=== PATIENT | male | born 1975 | race Caucasian/White ===

== ENCOUNTER 2022-02-14 16:46 | Emergency (ER) | payer OTHER ==
[2022-02-14] MEDS ORDERED: TRANDATE 20 MG/4 ML SYRINGE IV ONE (16:51)
[2022-02-14] MEDS ORDERED: Nitrostat 0.4 MG (ED) SL ONE (16:57)
[2022-02-14] MEDS ORDERED: BABY ASPIRIN 81 MG CHEW PO ONE (16:57)
[2022-02-14] MEDS ORDERED: Sodium Chloride 0.9% 1000 ML 1,000 ML IV SCH (17:00)
[2022-02-14 17:09] LABS: Absolute Neutrophil Ct (ANC) 8.42 x10^3/uL (1.4-6.9); Basophil (Absolute #) 0.03 x10^3/uL (0-0.4); Eosinophil % 0.7 % (0.00-5.0); Eosinophil (Absolute #) 0.08 x10^3/uL (0-0.5); Hematocrit 44.5 % (42-50); Hemoglobin 15.2 g/dL (12.5-18.0); Lymphocyte (Absolute #) 1.83 x10^3/uL (1.0-4.6); Lymphocytes % 16.5 % (24.0-44.0); Mean Cell Volume 91.4 fL (78-100); Mean Corpuscular Hemoglobin 31.2 pg (26-32); Mean Corpuscular Hgb Concent. 34.2 g/dL (32-36); Mean Platelet Volume 9.5 fL (7.5-11.0); Monocyte (Absolute #) 0.71 x10^3/uL (0.0-1.3); Monocytes % 6.4 % (0.0-12.0); Neutrophil % 75.7 % (36.0-66.0); Platelet Count 261 x10^3/uL (150-450); Red Blood Count 4.87 x10^6/uL (4.1-5.6); Red Cell Distribution Width 12.8 % (11.5-14.0); White Blood Count 11.1 x10^3/uL (4.0-10.5)
[2022-02-14] MEDS ORDERED: Sodium Chloride 0.9% 1000 ML 1,000 ML ONE (17:15)
[2022-02-14 17:23] VITALS: O2SAT 99
[2022-02-14 17:31] LABS: ALBUMIN 4.8 g/dL (3.5-5.0); ALKALINE PHOSPHATASE 87 U/L (38-126); ANION GAP 13.7 MEQ/L (5-15); BLOOD UREA NITROGEN 18 mg/dL (9-20); CHLORIDE 99 mmol/L (98-107); Calcium 10.8 mg/dL (8.4-10.2); Carbon Dioxide 26 mmol/L (22-30); Creatinine 1 1.07 mg/dL (0.66-1.25); EST GLOMERULAR FILTRATION RATE > 60.0 ML/MIN; Glucose 117 mg/dL (74-106); NT PRO BNP 53.6 pg/mL (0-450); Potassium 3.7 mmol/L (3.5-5.1); SGOT/AST 41 U/L (17-59); SGPT/ALT 42 U/L (0-50); SODIUM 135 mmol/L (137-145)
[2022-02-14] MEDS ORDERED: NORVASC 5 MG ONE (17:38)
[2022-02-14] MEDS ORDERED: NORVASC 5 MG PO ONE (17:38)
--- NOTE | 2022-02-14 17:43 | ERPHSYRPT ---
- History of Present Illness Time Seen by Provider: 02/14/22 17:39 Historian: patient, family Exam Limitations: no limitations Patient Subjective Stated Complaint: C/O chest pain that started this morning. Pain is not currently radiating but did radiate into left arm/shoulder and neck earlier today. No SOB. Triage Nursing Assessment: Patient ambulated back to ED without SOB noted. Skin note pale; it is warm, dry, normal skin tone. Patient is anxious. No edema noted. Physician History: Patient is 47-year-old male history of hypertension came to the emergency room with complaining of chest pain radiating to the back and left arm started approximately few hours ago. Patient has been recently diagnosed with hyperte nsion for which patient is taking lisinopril 20 mg twice a day and recently hydrochlorothiazide was added 25 mg once a day. 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 His blood pressure was doing okay just 1 week ago but in last 2 3 days he started raising in the range of 1 7180 systolic and 9200 diastolic today his blood pressure was very high and he started having a chest heaviness and chest pain so he came to the emergency room. He was still having some heaviness in the emergency room but he was denying any other symptoms. Timing/Duration: today Activities at Onset: none Quality: fullness Location: substernal Chest Pain Radiation: neck, arm, back Severity of Pain-Max: mild Severity of Pain-Current: mild Modifying Factors: Improves With: nothing Associated Symptoms: denies symptoms Prior Chest Pain/Cardiac Workup: no prior chest pain Nitro Today/Relief: no nitro taken today Aspirin Treatment Today: no aspirin today Allergies/Adverse Reactions: Penicillins Allergy (Verified 02/14/22 16:47) Home Medications: Lisinopril 20 mg [Zestril 20 MG] 1 tab PO DAILY 02/14/22 [History] Rosuvastatin Calcium [Crestor] 1 tab PO DAILY 02/14/22 [History] hydroCHLOROthiazide [Hydrochlorothiazide] 1 tab PO DAILY 02/14/22 [History] Hx Tetanus, Diphtheria Vaccination/Date Given: Yes Hx Influenza Vaccination/Date Given: No Hx Pneumococcal Vaccination/Date Given: No Immunizations Up to Date: Yes Travel Risk - International Travel Have you traveled outside of the country in past 3 weeks: No - Coronavirus Screening Are you exhibiting any of the following symptoms?: No Close contact with a COVID-19 positive Pt in past 14-21 Days: No - Vaccine Status Have you recieved a Covid-19 vaccination: No - Review of Systems Constitutional: No Fever, No Chills Eyes: No Symptoms Ears, Nose, & Throat: No Symptoms Respiratory: No Cough, No Dyspnea Cardiac: Chest Pain, No Edema, No Syncope Abdominal/Gastrointestinal: No Abdominal Pain, No Nausea, No Vomiting, No Diarrhea Genitourinary Symptoms: No Dysuria Musculoskeletal: No Back Pain, No Neck Pain Skin: No Rash Neurological: No Dizziness, No Focal Weakness, No Sensory Changes Psychological: No Symptoms Endocrine: No Symptoms All Other Systems: Reviewed and Negative - Past Medical History Pertinent Past Medical History: Yes Cardiac History: High Cholesterol, Hypertension Respiratory History: Other GI Medical History: Diverticulitis Psycho-Social History: Anxiety, Depression - Past Surgical History Past Surgical History: No - Social History Smoking Status: Current every day smoker How long have you smoked: 20 years Exposure to second hand smoke: No Patient Lives Alone: No - Nursing Vital Signs Nursing Vital Signs: Initial Vital Signs Temperature 98.9 F 02/14/22 16:49 Pulse Rate 108 H 02/14/22 16:49 Respiratory Rate 18 02/14/22 16:49 Blood Pressure 176/94 02/14/22 16:49 O2 Sat by Pulse Oximetry 99 02/14/22 16:49 Pain Scale Pain Intensity 3 - Physical Exam General Appearance: no apparent distress, alert Eye Exam: PERRL/EOMI, eyes nml inspection Ears, Nose, Throat Exam: normal ENT inspection, moist mucous membranes Neck Exam: normal inspection, non-tender, supple, full range of motion Respiratory Exam: normal breath sounds, lungs clear, No respiratory distress Cardiovascular Exam: regular rate/rhythm, normal heart sounds Gastrointestinal/Abdomen Exam: soft, No tenderness, No mass Back Exam: normal inspection, No CVA tenderness, No vertebral tenderness Extremity Exam: normal inspection, normal range of motion Neurologic Exam: alert, oriented x 3, cooperative, normal mood/affect, sensation nml, No motor deficits Skin Exam: normal color, warm, dry SpO2: 99 - Course Nursing assessment & vital signs reviewed: Yes EKG Interpreted by Me: Sinus Rhythm - Radiology Exams Chest X-ray Interpretation: Reviewed by me, Negative Ordered Tests: Active Orders 24 hr Category Date Time Status Repairer Handtools STAT Care 02/14/22 16:52 Active EKG-ER Only STAT Care 02/14/22 16:51 Active IV Insertion STAT Care 02/14/22 16:51 Active Oxygen-ED Only Nasal Cannula 2 lpm Care 02/14/22 16:51 Active CHEST 1 VIEW (PORTABLE) Stat Exams 02/14/22 16:51 Ordered CBC W DIFF Stat Lab 02/14/22 17:06 Completed CMP Stat Lab 02/14/22 17:06 Completed NT PRO BNP Stat Lab 02/14/22 17:06 Completed TROPONIN Q3H Lab 02/14/22 17:06 Completed TROPONIN Q3H Lab 02/14/22 20:00 Ordered TROPONIN Q3H Lab 02/14/22 23:00 Ordered TROPONIN Q3H Lab 02/15/22 02:00 Ordered TROPONIN Q3H Lab 02/15/22 05:00 Ordered Medication Summary Generic Name Dose Route Start Last Admin Trade Name Freq PRN Reason Stop Dose Admin Sodium Chloride 1,000 mls @ 100 mls/hr 02/14/22 17:00 02/14/22 17:16 Sodium Chloride 0.9% 1000 Ml IV 03/16/22 16:59 100 mls/hr .Q10H HIRAM Administration Discontinued Medications Generic Name Dose Route Start Last Admin Trade Name Freq PRN Reason Stop Dose Admin Amlodipine Besylate 5 mg 02/14/22 17:38 02/14/22 17:40 Amlodipine Besylate 5 Mg Tablet PO 02/14/22 17:39 5 mg STAT ONE Administration Amlodipine Besylate Confirm 02/14/22 17:38 Amlodipine Besylate 5 Mg Tablet Administered 02/14/22 17:39 Dose 5 mg .ROUTE .STK-MED ONE Aspirin 324 mg 02/14/22 16:57 02/14/22 17:16 Aspirin 81 Mg Tab.Chew PO 02/14/22 16:58 324 mg STAT ONE Administration Labetalol HCl 20 mg 02/14/22 16:51 Labetalol Hcl 20 Mg/4 Ml Disp.Syringe IV 02/14/22 16:52 STAT ONE Nitroglycerin 0.4 mg 02/14/22 16:57 02/14/22 17:16 Nitroglycerin 0.4 Mg (Ed) 0.4 Mg Tab.Subl SL 02/14/22 16:58 0.4 mg STAT ONE Administration Lab/Rad Data: Laboratory Result Diagrams 02/14/22 17:06 02/14/22 17:06 Laboratory Results 02/14/22 02/14/22 02/14/22 Range/Units 17:06 17:06 17:06 WBC 11.1 H (4.0-10.5) x10^3/uL RBC 4.87 (4.1-5.6) x10^6/uL Hgb 15.2 (12.5-18.0) g/dL Hct 44.5 (42-50) % MCV 91.4 (78-100) fL MCH 31.2 (26-32) pg MCHC 34.2 (32-36) g/dL RDW 12.8 (11.5-14.0) % Plt Count 261 (150-450) x10^3/uL MPV 9.5 (7.5-11.0) fL Gran % 75.7 H (36.0-66.0) % Immature Gran % (Auto) 0.4 (0.00-0.4) % Nucleat RBC Rel Count 0.0 (0.00-0.1) % Eos # (Auto) 0.08 (0-0.5) x10^3/uL Immature Gran # (Auto) 0.05 H (0.00-0.03) x10^3u/L Absolute Lymphs (auto) 1.83 (1.0-4.6) x10^3/uL Absolute Monos (auto) 0.71 (0.0-1.3) x10^3/uL Absolute Nucleated RBC 0.00 (0.00-0.01) x10^3u/L Lymphocytes % 16.5 L (24.0-44.0) % Monocytes % 6.4 (0.0-12.0) % Eosinophils % 0.7 (0.00-5.0) % Basophils % 0.3 (0.0-0.4) % Absolute Granulocytes 8.42 H (1.4-6.9) x10^3/uL Basophils # 0.03 (0-0.4) x10^3/uL Sodium 135 L (137-145) mmol/L Potassium 3.7 (3.5-5.1) mmol/L Chloride 99 (98-107) mmol/L Carbon Dioxide 26 (22-30) mmol/L Anion Gap 13.7 (5-15) MEQ/L BUN 18 (9-20) mg/dL Creatinine 1.07 (0.66-1.25) mg/dL Estimated GFR > 60.0 ML/MIN Glucose 117 H (74-106) mg/dL Calcium 10.8 H (8.4-10.2) mg/dL Total Bilirubin 0.60 (0.2-1.3) mg/dL AST 41 (17-59) U/L ALT 42 (0-50) U/L Alkaline Phosphatase 87 (38-126) U/L Troponin I < 0.012 (0.000-0.034) ng/mL NT-Pro-B Natriuret Pep 53.6 (0-450) pg/mL Serum Total Protein 8.0 (6.3-8.2) g/dL Albumin 4.8 (3.5-5.0) g/dL - Progress Progress: improved Air Movement: good Blood Culture(s) Obtained: No Antibiotics given: No Counseled pt/family regarding: lab results, diagnosis, need for follow-up, rad results, smoking cessation - Departure Departure Disposition: Home Clinical Impression: Chest pain in adult, Hypertensive urgency Condition: Stable Critical Care Time: Yes Critical Care Time(excluding separately billable procedures): Critical 30-74 mins Instructions: Chest Pain (DC) Additional Instructions: Please take lisinopril 20 mg twice a day and amlodipine 5 mg at night. 1 dose of amlodipine 5 mg is already given to you in ER today so you can start that tomorrow. You can stop your hydrochlorothiazide for now. Take off on Wednesday and follow-up with your primary care physician on Wednesday for further stratification and management of your blood pressure. If your symptoms recur or started having chest pain again come back to the emergency room. Discharge/Care Plan HALLEY FRANKLIN was seen on 02/14/22 in the Emergency Room. The patient was counseled regarding Diagnosis,Lab results, Imaging studies, need for follow up and when to return to the Emergency Room. Prescriptions given: Discharge Note I have spoken with the patient and/or caregivers. I have explained the patient's condition, diagnosis and treatment plan based on the information available to me at this time. I have answered the patient's and/or caregiver's questions and addressed any concerns. The patient and/or caregivers have as good understanding of the patient's diagnosis, condition and treatment plan as can be expected at this point. The vital signs have been stable. The patient's condition is stable and appropriate for discharge from the emergency department. The patient will pursue further outpatient evaluation with the primary care physician or other designated or consulting physician as outlined in the discharge instructions. The patient and/or caregivers are agreeable to this plan of care and follow-up instructions have been explained in detail. The patient and/or caregivers have received these instruction. The patient/and or caregivers are aware that any significant change in condition or worsening of symptoms should prompt an immediate return to this or the closest emergency department or call 911. HALLEY FRANKLIN was seen on 02/14/22 n the Emergency Room. At that time you were treated for an emergent condition, during your visit Laboratory, Radiology and/or other procedures may have been ordered. It is very important that you follow-up with your Primary Care Physician within the next 24-48 hours to review your Emergency Room visit and the final results of testing that was ordered. Some test results such as Urine Cultures, Blood Cultures, and other cultures if ordered will not be finalized for 24-48 hours. If you do not have a Primary Care Provider please call the medical records department at [phone] ext [phone] to obtain a copy of your results or you may sign into our patient portal to obtain these results by visiting us @ [email or web address] and completing the following steps: 1. Click on the Patient Portal link 2. Click the Patient Self Enrollment Link to complete the enrollment form and entering your 3. Once the enrollment form is completed you will receive an email with a temporary ID and password at the email address you provided. 4. Next choose a user name and password. Your user name must be at least 4 characters long and your password must be at least 4 characters long. 5. Choose a security question from the list and provide your answer to the question. If you already have signed into the Health Portal you may access your Health Care Information 15/03 by the following steps: 1. Login to our website @ [email or web address] 2. Enter your original user name and password. FAQS The [facility] Health Portal is an online tool that contains your Lab Results, Radiology Reports, Visit History, Discharge Instructions and Health Summary Lab and Radiology Results will not be available for 72 hours on the portal. The Portal is a secure site, passwords are encryted and URLs are re-written so they cannot be copied and pasted. You and authorized family members are the only ones who can access your Portal. Also there is a timeout feature that protects your information if you leave the Portal page open. If you have technical difficulty please use the Contact Us link on the page this will allow you to submit any questions you have regarding the Portal or you may contact the Medical Record Department at [phone] ext [phone]. Forms: Work/School Release Form Prescriptions: Amlodipine Besylate 5 mg [Norvasc 5 mg] 5 mg PO DAILY 30 Days #30 tablet
[2022-02-14 17:55] VITALS: BP 142/83; PULSE 93
--- NOTE | 2022-02-14 19:03 | XRAY ---
Indication: Chest pain. Hypertension. Comparison: None Portable chest inflated and clear. Heart not enlarged with incidental small left suprahilar calcified node. Bony thorax intact. Impression: Nonacute chest.
== END 2022-02-14 18:20 | disposition home or self-care (01) ==
LOC: ED 16:46
DX: I16.0 Hypertensive urgency (principal); I10 Essential (primary) hypertension; R07.9 Chest pain, unspecified; E78.5 Hyperlipidemia, unspecified; Z72.0 Tobacco use; Z79.899 Other long term (current) drug therapy; Z28.310 Unvaccinated for COVID-19
CPT/HCPCS: 36000; 36415; 71045; 80053; 83880; 84484; 85025; 93005; 93041; 99284; 99291; A9270-GY

== ENCOUNTER 2022-07-21 06:37 | Emergency (ER) | payer OTHER ==
[2022-07-21 07:27] LABS: Absolute Neutrophil Ct (ANC) 5.89 x10^3/uL (1.4-6.9); Basophil (Absolute #) 0.05 x10^3/uL (0-0.4); Eosinophil % 2.4 % (0.00-5.0); Hematocrit 46.2 % (42-50); Hemoglobin 15.3 g/dL (12.5-18.0); Lymphocyte (Absolute #) 1.45 x10^3/uL (1.0-4.6); Lymphocytes % 17.1 % (24.0-44.0); Mean Cell Volume 91.3 fL (78-100); Mean Corpuscular Hemoglobin 30.2 pg (26-32); Mean Corpuscular Hgb Concent. 33.1 g/dL (32-36); Mean Platelet Volume 9.4 fL (7.5-11.0); Monocyte (Absolute #) 0.78 x10^3/uL (0.0-1.3); Monocytes % 9.2 % (0.0-12.0); Neutrophil % 69.6 % (36.0-66.0); Platelet Count 235 x10^3/uL (150-450); Red Blood Count 5.06 x10^6/uL (4.1-5.6); Red Cell Distribution Width 13.2 % (11.5-14.0); White Blood Count 8.5 x10^3/uL (4.0-10.5)
--- NOTE | 2022-07-21 07:29 | ERPHSYRPT ---
- History of Present Illness Time Seen by Provider: 07/21/22 06:50 Source: patient Exam Limitations: no limitations Patient Subjective Stated Complaint: pt states his blood pressure has been high prior to coming into the er. states he has beeh having some numbness in his lt [place], upper arm, and his lt face since approx 1600 yesterday. Triage Nursing Assessment: pt alert and oriented, answers questions approp. pt ambulatory with steady gait noted. respirations nonlabored. skin warm and dry. pupils equal and reactive. no facial droop noted. bilat upper and lower ext noted. pt reporting tingling in lt shoulder, face, and lt upper arm. when checked, pt states he feels no difference in sensation between lt and rt side but is still having some "tingling" in his lt side. Physician History: Patient is a 47-year-old white male who presents with a complaint of paresthesias involving the left side of the face the neck and left shoulder and left arm. Paresthesias started at 4 PM yesterday he notes they are much worse this morning. He denies a headache or any pain. He denies fever chills or sweats. He does have a history of hypertension that is been treated for 3-1/2 years with multiple drugs. Timing/Duration: yesterday Severity: moderate Character of Deficits: altered sensation, Left Facial, LUE Deficits: no difficulties Baseline/Normal Cognition: alert oriented x 3 Current Cognition: alert oriented x 3 Baseline Gait: walks w/o assistance Associated Symptoms: paresthesia Allergies/Adverse Reactions: Penicillins Allergy (Verified 07/21/22 07:00) Home Medications: Lisinopril 20 mg [Zestril 20 MG] 1 tab PO DAILY 02/14/22 [History] Rosuvastatin Calcium [Crestor] 1 tab PO DAILY 02/14/22 [History] hydroCHLOROthiazide [Hydrochlorothiazide] 1 tab PO DAILY 02/14/22 [History] Hx Tetanus, Diphtheria Vaccination/Date Given: Yes Hx Influenza Vaccination/Date Given: No Hx Pneumococcal Vaccination/Date Given: No Immunizations Up to Date: Yes Travel Risk - International Travel Have you traveled outside of the country in past 3 weeks: No - Coronavirus Screening Are you exhibiting any of the following symptoms?: No Close contact with a COVID-19 positive Pt in past 14-21 Days: No - Vaccine Status Have you recieved a Covid-19 vaccination: No - Review of Systems Constitutional: No Fever, No Chills Eyes: No Symptoms Ears, Nose, & Throat: No Symptoms Respiratory: No Cough, No Dyspnea Cardiac: No Chest Pain, No Edema, No Syncope Abdominal/Gastrointestinal: No Abdominal Pain, No Nausea, No Vomiting, No Di arrhea Genitourinary Symptoms: No Dysuria Musculoskeletal: No Back Pain, No Neck Pain Skin: No Rash Neurological: Parasthesia, No Dizziness, No Focal Weakness, No Sensory Changes Psychological: No Symptoms Endocrine: No Symptoms All Other Systems: Reviewed and Negative - Past Medical History Pertinent Past Medical History: Yes Cardiac History: High Cholesterol, Hypertension Respiratory History: Other GI Medical History: Diverticulitis Psycho-Social History: Anxiety, Depression - Past Surgical History Past Surgical History: No - Social History Smoking Status: Current every day smoker How long have you smoked: 30 yrs Exposure to second hand smoke: Yes Drug Use: none Patient Lives Alone: No - Nursing Vital Signs Nursing Vital Signs: Initial Vital Signs Temperature 98.1 F 07/21/22 06:38 Pulse Rate 83 07/21/22 06:38 Respiratory Rate 16 07/21/22 06:38 Blood Pressure 134/86 07/21/22 06:38 O2 Sat by Pulse Oximetry 99 07/21/22 06:38 Pain Scale Pain Intensity 0 - Ousmane Coma Scale Best Eye Response (Ousmane): (4) open spontaneously Best Verbal Response (Ousmane): (5) oriented Best Motor Response ([place]): (6) obeys commands Ousmane Total: 15 - Physical Exam General Appearance: no apparent distress, alert Eye Exam: bilateral eye: PERRL, EOMI Ears, Nose, Throat Exam: normal ENT inspection, moist mucous membranes Neck Exam: normal inspection, non-tender, supple Respiratory: normal breath sounds, lungs clear, airway intact, No respiratory distress Cardiovascular: regular rate/rhythm, No edema Gastrointestinal: soft, No tenderness, No distention Back Exam: normal inspection Extremity Exam: normal inspection, No pedal edema 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, 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 Exam: tongue midline Coordination/Gait: normal finger to nose, normal gait Skin Exam: normal color, warm, dry, No rash SpO2: 99 - Course Nursing assessment & vital signs reviewed: Yes EKG Interpreted by Me: RATE (75), Sinus Rhythm, NORMAL AXIS, NORMAL INTERVALS, NORMAL QRS, NORMAL ST-T - CT Exams Head CT Interpretation: Other (Normal CTA of the head) Soft Tissue Neck CT Interpretation: Other (Normal CTA of the neck) Ordered Tests: Active Orders 24 hr Category Date Time Status Take Out Waiter STAT Care 07/21/22 06:52 Active EKG-ER Only STAT Care 07/21/22 06:51 Active NPO (ED) STAT Care 07/21/22 06:51 Active CHEST 1 VIEW (PORTABLE) Stat Exams 07/21/22 06:[address] ANGIOGRAPHY NECK [CT] Stat Exams 07/21/22 06:52 Completed CTA HEAD W AND/OR WO CONTRAST [CT] Stat Exams 07/21/22 08:49 Completed CBC W DIFF Stat Lab 07/21/22 07:20 Completed CMP Stat Lab 07/21/22 07:20 Completed PT INR [PROTIME WITH INR] Stat Lab 07/21/22 07:20 Completed TROPONIN Q4H Lab 07/21/22 07:20 Completed TROPONIN Q4H Lab 07/21/22 11:00 Ordered TROPONIN Q4H Lab 07/21/22 15:00 Ordered UA W/RFX CULTURE Stat Lab 07/21/22 08:51 Completed Urine Triage Profile Stat Lab 07/21/22 08:51 Completed Transfer Order Routine Transfer 07/21/22 Ordered Lab/Rad Data: Laboratory Result Diagrams 07/21/22 07:20 07/21/22 07:20 Laboratory Results 07/21/22 07/21/22 07/21/22 Range/Units 08:51 08:51 07:20 WBC (4.0-10.5) x10^3/uL RBC (4.1-5.6) x10^6/uL Hgb (12.5-18.0) g/dL Hct (42-50) % MCV (78-100) fL MCH (26-32) pg MCHC (32-36) g/dL RDW (11.5-14.0) % Plt Count (150-450) x10^3/uL MPV (7.5-11.0) fL Gran % (36.0-66.0) % Immature Gran % (Auto) (0.00-0.4) % Nucleat RBC Rel Count (0.00-0.1) % Eos # (Auto) (0-0.5) x10^3/uL Immature Gran # (Auto) (0.00-0.03) x10^3u/L Absolute Lymphs (auto) (1.0-4.6) x10^3/uL Absolute Monos (auto) (0.0-1.3) x10^3/uL Absolute Nucleated RBC (0.00-0.01) x10^3u/L Lymphocytes % (24.0-44.0) % Monocytes % (0.0-12.0) % Eosinophils % (0.00-5.0) % Basophils % (0.0-0.4) % Absolute Granulocytes (1.4-6.9) x10^3/uL Basophils # (0-0.4) x10^3/uL PT (9.4-12.5) SECONDS INR (0.8-3.0) Sodium (137-145) mmol/L Potassium (3.5-5.1) mmol/L Chloride (98-107) mmol/L Carbon Dioxide (22-30) mmol/L Anion Gap (5-15) MEQ/L BUN (9-20) mg/dL Creatinine (0.66-1.25) mg/dL Estimated GFR ML/MIN Glucose (74-106) mg/dL Calcium (8.4-10.2) mg/dL Total Bilirubin (0.2-1.3) mg/dL AST (17-59) U/L ALT (0-50) U/L Alkaline Phosphatase (38-126) U/L Troponin I < 0.012 (0.000-0.034) ng/mL Serum Total Protein (6.3-8.2) g/dL Albumin (3.5-5.0) g/dL Urinalys Dipstick Clnc MAIN LAB Urine Color YELLOW (YELLOW) Urine Appearance CLEAR (CLEAR) Urine pH 6.0 (5-6) Ur Specific [place] 1.020 (1.005-1.025) POC Urine Protein Conf NEGATIVE (Negative) Urine Ketones NEGATIVE (NEGATIVE) Urine Nitrite NEGATIVE (NEGATIVE) Urine Bilirubin NEGATIVE (NEGATIVE) Urine Urobilinogen 0.2 (0-1) mg/dL Urine Leukocytes NEGATIVE (NEGATIVE) Urine WBC (Auto) NONE (0-5) /HPF Urine RBC (Auto) NONE (0-2) /HPF U Epithel Cells (Auto) NONE (FEW) /HPF Urine Bacteria (Auto) NONE (NEGATIVE) /HPF Urine RBC NEGATIVE (0-5) Wilber/ul Ur Culture Indicated? NO Urine Glucose NEGATIVE (NEGATIVE) mg/dL Urine Opiates Level NEGATIVE (NEGATIVE) Ur Methadone NEGATIVE (NEGATIVE) Urine Barbiturates NEGATIVE (NEGATIVE) Ur Phencyclidine (PCP) NEGATIVE (NEGATIVE) Urine Amphetamine NEGATIVE (NEGATIVE) U Benzodiazepine Level NEGATIVE (NEGATIVE) Urine Cocaine NEGATIVE (NEGATIVE) Urine Marijuana (THC) NEGATIVE (NEGATIVE) 07/21/22 07/21/22 07/21/22 Range/Units 07:20 07:20 07:20 WBC 8.5 (4.0-10.5) x10^3/uL RBC 5.06 (4.1-5.6) x10^6/uL Hgb 15.3 (12.5-18.0) g/dL Hct 46.2 (42-50) % MCV 91.3 (78-100) fL MCH 30.2 (26-32) pg MCHC 33.1 (32-36) g/dL RDW 13.2 (11.5-14.0) % Plt Count 235 (150-450) x10^3/uL MPV 9.4 (7.5-11.0) fL Gran % 69.6 H (36.0-66.0) % Immature Gran % (Auto) 1.1 H (0.00-0.4) % Nucleat RBC Rel Count 0.0 (0.00-0.1) % Eos # (Auto) 0.20 (0-0.5) x10^3/uL Immature Gran # (Auto) 0.09 H (0.00-0.03) x10^3u/L Absolute Lymphs (auto) 1.45 (1.0-4.6) x10^3/uL Absolute Monos (auto) 0.78 (0.0-1.3) x10^3/uL Absolute Nucleated RBC 0.00 (0.00-0.01) x10^3u/L Lymphocytes % 17.1 L (24.0-44.0) % Monocytes % 9.2 (0.0-12.0) % Eosinophils % 2.4 (0.00-5.0) % Basophils % 0.6 (0.0-0.4) % Absolute Granulocytes 5.89 (1.4-6.9) x10^3/uL Basophils # 0.05 (0-0.4) x10^3/uL PT 10.0 (9.4-12.5) SECONDS INR 0.94 (0.8-3.0) Sodium 133 L (137-145) mmol/L Potassium 5.2 H (3.5-5.1) mmol/L Chloride 102 (98-107) mmol/L Carbon Dioxide 23 (22-30) mmol/L Anion Gap 12.8 (5-15) MEQ/L BUN 24 H (9-20) mg/dL Creatinine 1.03 (0.66-1.25) mg/dL Estimated GFR > 60.0 ML/MIN Glucose 119 H (74-106) mg/dL Calcium 9.5 (8.4-10.2) mg/dL Total Bilirubin 0.70 (0.2-1.3) mg/dL AST 40 (17-59) U/L ALT 41 (0-50) U/L Alkaline Phosphatase 85 (38-126) U/L Troponin I (0.000-0.034) ng/mL Serum Total Protein 7.9 (6.3-8.2) g/dL Albumin 4.9 (3.5-5.0) g/dL Urinalys Dipstick Clnc Urine Color (YELLOW) Urine Appearance (CLEAR) Urine pH (5-6) Ur Specific [place] (1.005-1.025) POC Urine Protein Conf (Negative) Urine Ketones (NEGATIVE) Urine Nitrite (NEGATIVE) Urine Bilirubin (NEGATIVE) Urine Urobilinogen (0-1) mg/dL Urine Leukocytes (NEGATIVE) Urine WBC (Auto) (0-5) /HPF Urine RBC (Auto) (0-2) /HPF U Epithel Cells (Auto) (FEW) /HPF Urine Bacteria (Auto) (NEGATIVE) /HPF Urine RBC (0-5) Wilber/ul Ur Culture Indicated? Urine Glucose (NEGATIVE) mg/dL Urine Opiates Level (NEGATIVE) Ur Methadone (NEGATIVE) Urine Barbiturates (NEGATIVE) Ur Phencyclidine (PCP) (NEGATIVE) Urine Amphetamine (NEGATIVE) U Benzodiazepine Level (NEGATIVE) Urine Cocaine (NEGATIVE) Urine Marijuana (THC) (NEGATIVE) - Progress Progress: improved - Departure Departure Disposition: Home Clinical Impression: Paresthesia Condition: Stable Critical Care Time: No Referrals: ALFIE ROWLEY NP [Primary Care Provider] - Follow up/PCP as directed Instructions: Paresthesia (DC) Prescriptions: Diclofenac Sodium 50 mg [Voltaren 50 mg] 50 mg PO TID 5 Days #15 tablet
[2022-07-21 07:40] LABS: INR 0.94 (0.8-3.0)
[2022-07-21 07:46] LABS: ALBUMIN 4.9 g/dL (3.5-5.0); ALKALINE PHOSPHATASE 85 U/L (38-126); ANION GAP 12.8 MEQ/L (5-15); BLOOD UREA NITROGEN 24 mg/dL (9-20); CHLORIDE 102 mmol/L (98-107); Calcium 9.5 mg/dL (8.4-10.2); Carbon Dioxide 23 mmol/L (22-30); Creatinine 1 1.03 mg/dL (0.66-1.25); EST GLOMERULAR FILTRATION RATE > 60.0 ML/MIN; Glucose 119 mg/dL (74-106); Potassium 5.2 mmol/L (3.5-5.1); SGOT/AST 40 U/L (17-59); SGPT/ALT 41 U/L (0-50); SODIUM 133 mmol/L (137-145); Total Protein 7.9 g/dL (6.3-8.2)
--- NOTE | 2022-07-21 09:00 | XRAY ---
Indication: Hypertension. Comparison: February 14, 2022 Portable chest again demonstrates normal heart, lungs, and bony thorax with incidental left suprahilar calcified node.
[2022-07-21 09:20] LABS: Appearance CLEAR (CLEAR); Glucose NEGATIVE (NEGATIVE)
[2022-07-21 09:21] LABS: Bilirubin NEGATIVE (NEGATIVE); Ketones NEGATIVE (NEGATIVE); RBC NEGATIVE Ery/ul (0-5)
--- NOTE | 2022-07-21 09:27 | XRAY ---
Indication: Left shoulder, upper arm, and face numbness 16 hours. Hypertension. Conventional contrast enhanced CTA neck performed using 80 cc Isovue 370 contrast. 2-D sagittal and coronal reformatted images obtained. Additional 3-D reformatted images obtained using a separate workstation. Comparison: None Aortic arch is normal in course and caliber. Normal widely patent branching right brachiocephalic, left common carotid, and left subclavian arteries. Left and right common carotid, carotid bulb, internal carotid, and external carotid arteries are normal in CTA appearance. Vertebral arteries are also normal in CTA appearance with the left slightly larger in caliber. Parotid and submandibular glands are bilaterally symmetric. Small scattered centimeter/subcentimeter cervical and submandibular lymph nodes bilaterally, none pathologically enlarged. Thyroid gland enhances homogeneously. Slightly enlarged palatine tonsils and adenoids narrows the oropharynx. Visualized osseous structures intact with minimal/mild multilevel cervical degenerative changes greatest at C6-C7. Lung apices are clear. Impression: 1. Normal CTA neck with contrast exam. 2. Incidental slightly enlarged palatine tonsils/adenoids and multilevel cervical degenerative changes.
--- NOTE | 2022-07-21 09:29 | XRAY ---
Indication: Left shoulder, upper arm, and face numbness 16 hours. Hypertension. Conventional contrast enhanced CTA head performed using 80 cc Isovue 370 contrast. 2-D sagittal and coronal reformatted images obtained. Additional 3-D reformatted images obtained using a separate workstation. Comparison: None Distal internal carotid arteries are bilaterally symmetric without critical stenosis, obstruction, or AV malformation. Normal carotid terminus with normal branching A1 and M1 segments bilaterally. More distal anterior cerebral and middle cerebral arteries are normal in CTA appearance. Posterior circulation demonstrates normal CTA appearance to the basilar, left/right posterior cerebral, left/right superior cerebellar, and left/right anterior inferior cerebellar arteries. Venous drainage/sinuses are unremarkable. Noncontrast images are negative for acute intracranial hemorrhage, abnormal extra axial fluid collection, or mass effect. Fourth ventricle is midline without hydrocephalus. Ng-white matter differentiation preserved. Postcontrast images are negative for abnormal enhancing intra-or extra-axial mass. Bony calvarium intact. Visualized paranasal sinuses and mastoid air cells are clear. Impression: 1. Normal CTA head with contrast exam. 2. Normal CT head with and without contrast exam.
[2022-07-21 09:31] LABS: Dipstick done @ ? MAIN LAB; Nitrite NEGATIVE (NEGATIVE); Protein,Urine Dip NEGATIVE (Negative); Urobilinogen 0.2 mg/dL (0-1)
[2022-07-21 09:41] LABS: Amphetamine,Urine NEGATIVE (NEGATIVE); Barbiturate,Urine NEGATIVE (NEGATIVE); Benzodiazepine,Urine NEGATIVE (NEGATIVE); Cocaine,Urine NEGATIVE (NEGATIVE); Methadone,Urine NEGATIVE (NEGATIVE); Opiate,Urine NEGATIVE (NEGATIVE); PCP,Urine NEGATIVE (NEGATIVE); THC,Urine NEGATIVE (NEGATIVE)
[2022-07-21 09:42] LABS: Urine Cultured Indicated? NO
[2022-07-21 10:11] VITALS: BP 117/81; PULSE 70; O2SAT 97
== END 2022-07-21 10:19 | disposition home or self-care (01) ==
LOC: ED 06:37
DX: R20.2 Paresthesia of skin (principal); I10 Essential (primary) hypertension; E78.5 Hyperlipidemia, unspecified; Z79.899 Other long term (current) drug therapy; Z28.310 Unvaccinated for COVID-19; Z72.0 Tobacco use
CPT/HCPCS: 36415; 70496; 70498; 71045; 80053; 80307; 81015; 84484; 85025; 85610; 93005; 93041; 99284

== ENCOUNTER 2023-01-17 20:26 | Emergency (ER) | payer OTHER ==
--- NOTE | 2023-01-17 20:31 | ERPHSYRPT ---
- History of Present Illness Time Seen by Provider: 01/17/23 20:31 Historian: patient Exam Limitations: no limitations Physician History: 7-year-old male presents emergency room with chest pressure and palpitations patient reports that palpitations started 4 days ago and have increased in frequency over this time. He has had these before but has always been told that they were normal. Pressure started today and is at rest and with exertion no radiation present. He does report a few episodes of dizziness over the past 2 days with exertion as well. Started on Pepcid last week for GERD and reports good symptom improvement since starting the medication. He has a personal history of hypertension hyperlipidemia but denies diabetes. He is a current smoker and has a strong family history of cardiac disease. He denies any current fever, chills, nausea, vomiting, chest pain, abdominal pain, shortness of breath or swelling. Timing/Duration: today Activities at Onset: activity, rest Quality: pressure Location: central Chest Pain Radiation: no radiation Severity of Pain-Max: moderate Severity of Pain-Current: none Modifying Factors: Worsens With: eating, exertion Associated Symptoms: palpitations, heartburn, No nausea, No vomiting, No abdominal pain, No shortness of breath, No cough, No headache, No dizziness, No edema Prior Chest Pain/Cardiac Workup: angina Nitro Today/Relief: no nitro taken today Aspirin Treatment Today: 81 mg x 4 Allergies/Adverse Reactions: Penicillins Allergy (Verified 01/17/23 20:45) Home Medications: Lisinopril 20 mg [Zestril 20 MG] 1 tab PO BID 02/14/22 [History] Rosuvastatin Calcium [Crestor] 1 tab PO DAILY 02/14/22 [History] hydroCHLOROthiazide [Hydrochlorothiazide] 1 tab PO DAILY 02/14/22 [History] Amlodipine Besylate 5 mg [Norvasc 5 mg] 10 mg PO DAILY 01/17/23 [History] Cyclobenzaprine HCl 10 mg [Cyclobenzaprine 10 MG] 1 tab PO DAILY PRN PRN 01/17/23 [History] Famotidine 20 mg PO DAILY 01/17/23 [History] Hx Tetanus, Diphtheria Vaccination/Date Given: Yes Hx Influenza Vaccination/Date Given: No Hx Pneumococcal Vaccination/Date Given: No Travel Risk - Vaccine Status Have you recieved a Covid-19 vaccination: No - Review of Systems Constitutional: No Symptoms Eyes: No Symptoms Ears, Nose, & Throat: No Symptoms Respiratory: No Symptoms Cardiac: Chest Pain, Palpitations Abdominal/Gastrointestinal: No Symptoms Musculoskeletal: No Symptoms Skin: No Symptoms Neurological: Dizziness Psychological: No Symptoms Endocrine: No Symptoms - Past Medical History Pertinent Past Medical History: Yes Cardiac History: High Cholesterol, Hypertension Respiratory History: Other GI Medical History: Diverticulitis Psycho-Social History: Anxiety, Depression - Past Surgical History Past Surgical History: No - Social History Smoking Status: Current every day smoker How long have you smoked: 30 yrs Exposure to second hand smoke: Yes Drug Use: none Patient Lives Alone: No - Nursing Vital Signs Nursing Vital Signs: Initial Vital Signs Temperature 97.5 F 01/17/23 20:29 Pulse Rate 102 H 01/17/23 20:29 Respiratory Rate 20 01/17/23 20:29 Blood Pressure 115/87 01/17/23 20:29 O2 Sat by Pulse Oximetry 100 01/17/23 20:29 Pain Scale Pain Intensity 0 - Physical Exam General Appearance: no apparent distress Eye Exam: PERRL/EOMI Ears, Nose, Throat Exam: normal ENT inspection Neck Exam: normal inspection Respiratory Exam: normal breath sounds, lungs clear, airway intact, No respiratory distress Cardiovascular Exam: normal heart sounds, tachycardia, capillary refill <2 sec, No edema Gastrointestinal/Abdomen Exam: soft, normal bowel sounds, No tenderness Extremity Exam: normal inspection, No miller's sign, No swelling, No tenderness Neurologic Exam: alert, oriented x 3, cooperative Skin Exam: normal color, warm, dry SpO2 Interpretation: normal SpO2: 100 O2 Delivery: Room Air - Course Nursing assessment & vital signs reviewed: Yes EKG Interpreted by Me: RATE (96), Sinus Rhythm, NORMAL AXIS, NORMAL INTERVALS, NORMAL QRS, NORMAL ST-T - Radiology Exams Chest X-ray Interpretation: Interpreted by me, Negative Ordered Tests: Active Orders 24 hr Category Date Time Status Director [employer] STAT Care 01/17/23 20:46 Active EKG-ER Only STAT Care 01/17/23 20:45 Active IV Insertion STAT Care 01/17/23 20:45 Active Pulse Oximetry (ED) STAT Care 01/17/23 20:45 Active CHEST 1 VIEW (PORTABLE) Stat Exams 01/17/23 20:45 Taken CBC W DIFF Stat Lab 01/17/23 20:52 Completed CMP Stat Lab 01/17/23 20:52 Completed LIPASE Stat Lab 01/17/23 20:52 Completed MAGNESIUM Stat Lab 01/17/23 20:52 Completed TROPONIN Q4H Lab 01/17/23 20:52 Completed TROPONIN Q4H Lab 01/18/23 00:02 Completed TROPONIN Q4H Lab 01/18/23 04:45 Ordered UA W/RFX UR CULTURE Stat Lab 01/17/23 22:52 Completed Urine Triage Profile Stat Lab 01/17/23 22:52 Completed Medication Summary Discontinued Medications Generic Name Dose Route Start Last Admin Trade Name Freq PRN Reason Stop Dose Admin Aspirin 324 mg 01/17/23 20:45 01/17/23 21:00 Aspirin 81 Mg Tab.Chew PO 01/17/23 20:46 324 mg STAT ONE Administration Aspirin Confirm 01/17/23 20:57 Aspirin 81 Mg Tab.Chew Administered 01/17/23 20:58 Dose 324 mg .ROUTE .STK-MED ONE Sodium Chloride 1,000 mls @ 999 mls/hr 01/17/23 20:45 01/17/23 22:02 Sodium Chloride 0.9% 1000 Ml IV 01/17/23 21:45 Infused .Q1H1M STA Infusion Sodium Chloride Confirm 01/17/23 20:58 Sodium Chloride 0.9% 1000 Ml Administered 01/17/23 20:59 Dose 1,000 mls @ ud .ROUTE .STK-MED ONE Lab/Rad Data: Laboratory Result Diagrams 01/17/23 20:52 01/17/23 20:52 Laboratory Results 01/18/23 01/17/23 01/17/23 Range/Units 00:02 22:52 22:52 WBC (4.0-10.5) x10^3/uL RBC (4.1-5.6) x10^6/uL Hgb (12.5-18.0) g/dL Hct (42-50) % MCV (78-100) fL MCH (26-32) pg MCHC (32-36) g/dL RDW (11.5-14.0) % Plt Count (150-450) x10^3/uL MPV (7.5-11.0) fL Gran % (36.0-66.0) % Immature Gran % (Auto) (0.00-0.4) % Nucleat RBC Rel Count (0.00-0.1) % Eos # (Auto) (0-0.5) x10^3/uL Immature Gran # (Auto) (0.00-0.03) x10^3u/L Absolute Lymphs (auto) (1.0-4.6) x10^3/uL Absolute Monos (auto) (0.0-1.3) x10^3/uL Absolute Nucleated RBC (0.00-0.01) x10^3u/L Lymphocytes % (24.0-44.0) % Monocytes % (0.0-12.0) % Eosinophils % (0.00-5.0) % Basophils % (0.0-0.4) % Absolute Granulocytes (1.4-6.9) x10^3/uL Basophils # (0-0.4) x10^3/uL Sodium (137-145) mmol/L Potassium (3.5-5.1) mmol/L Chloride (98-107) mmol/L Carbon Dioxide (22-30) mmol/L Anion Gap (5-15) MEQ/L BUN (9-20) mg/dL Creatinine (0.66-1.25) mg/dL Estimated GFR ML/MIN Glucose (74-106) mg/dL Calcium (8.4-10.2) mg/dL Magnesium (1.6-2.3) mg/dL Total Bilirubin (0.2-1.3) mg/dL AST (17-59) U/L ALT (0-50) U/L Alkaline Phosphatase (38-126) U/L Troponin I < 0.012 (0.000-0.034) ng/mL Serum Total Protein (6.3-8.2) g/dL Albumin (3.5-5.0) g/dL Lipase (23-300) U/L Urine Color Yellow (Yellow) Urine Appearance Clear (Clear) Urine pH 5.5 (4.6-8.0) Ur Specific Weaver 1.010 (1.005-1.030) Urine Protein Negative (Negative) Urine Glucose (UA) Negative (Negative) mg/dL Urine Ketones Negative (Negative) Urine Blood Trace (Negative) Urine Nitrite Negative (Negative) Urine Bilirubin Negative (Negative) Urine Urobilinogen 0.2 (0.2) mg/dL Ur Leukocyte Esterase Negative (Negative) U Hyaline Cast (Auto) NONE SEEN (0-2) /LPF Urine Microscopic RBC 0-2 (0-5) /HPF Urine Microscopic WBC 0-2 (0-5) /HPF Ur Epithelial Cells None Seen (None Seen) /HPF Urine Bacteria None Seen (None Seen) /HPF Urine Culture Reflexed NO (NO) Urine Opiates Level NEGATIVE (NEGATIVE) Ur Methadone NEGATIVE (NEGATIVE) Urine Barbiturates NEGATIVE (NEGATIVE) Ur Phencyclidine (PCP) NEGATIVE (NEGATIVE) Urine Amphetamine NEGATIVE (NEGATIVE) U Benzodiazepine Level NEGATIVE (NEGATIVE) Urine Cocaine NEGATIVE (NEGATIVE) Urine Marijuana (THC) NEGATIVE (NEGATIVE) 01/17/23 01/17/23 01/17/23 Range/Units 20:52 20:52 20:52 WBC 8.9 (4.0-10.5) x10^3/uL RBC 5.17 (4.1-5.6) x10^6/uL Hgb 16.0 (12.5-18.0) g/dL Hct 47.0 (42-50) % MCV 90.9 (78-100) fL MCH 30.9 (26-32) pg MCHC 34.0 (32-36) g/dL RDW 13.2 (11.5-14.0) % Plt Count 225 (150-450) x10^3/uL MPV 9.7 (7.5-11.0) fL Gran % 68.0 H (36.0-66.0) % Immature Gran % (Auto) 0.7 H (0.00-0.4) % Nucleat RBC Rel Count 0.0 (0.00-0.1) % Eos # (Auto) 0.14 (0-0.5) x10^3/uL Immature Gran # (Auto) 0.06 H (0.00-0.03) x10^3u/L Absolute Lymphs (auto) 1.98 (1.0-4.6) x10^3/uL Absolute Monos (auto) 0.62 (0.0-1.3) x10^3/uL Absolute Nucleated RBC 0.00 (0.00-0.01) x10^3u/L Lymphocytes % 22.3 L (24.0-44.0) % Monocytes % 7.0 (0.0-12.0) % Eosinophils % 1.6 (0.00-5.0) % Basophils % 0.4 (0.0-0.4) % Absolute Granulocytes 6.05 (1.4-6.9) x10^3/uL Basophils # 0.04 (0-0.4) x10^3/uL Sodium 133 L (137-145) mmol/L Potassium 3.8 (3.5-5.1) mmol/L Chloride 98 (98-107) mmol/L Carbon Dioxide 22 (22-30) mmol/L Anion Gap 17.0 H (5-15) MEQ/L BUN 35 H (9-20) mg/dL Creatinine 1.72 H (0.66-1.25) mg/dL Estimated GFR 45.1 ML/MIN Glucose 129 H (74-106) mg/dL Calcium 9.5 (8.4-10.2) mg/dL Magnesium 2.0 (1.6-2.3) mg/dL Total Bilirubin 0.70 (0.2-1.3) mg/dL AST 29 (17-59) U/L ALT 32 (0-50) U/L Alkaline Phosphatase 81 (38-126) U/L Troponin I < 0.012 (0.000-0.034) ng/mL Serum Total Protein 7.8 (6.3-8.2) g/dL Albumin 4.8 (3.5-5.0) g/dL Lipase 90 (23-300) U/L Urine Color (Yellow) Urine Appearance (Clear) Urine pH (4.6-8.0) Ur Specific Weaver (1.005-1.030) Urine Protein (Negative) Urine Glucose (UA) (Negative) mg/dL Urine Ketones (Negative) Urine Blood (Negative) Urine Nitrite (Negative) Urine Bilirubin (Negative) Urine Urobilinogen (0.2) mg/dL Ur Leukocyte Esterase (Negative) U Hyaline Cast (Auto) (0-2) /LPF Urine Microscopic RBC (0-5) /HPF Urine Microscopic WBC (0-5) /HPF Ur Epithelial Cells (None Seen) /HPF Urine Bacteria (None Seen) /HPF Urine Culture Reflexed (NO) Urine Opiates Level (NEGATIVE) Ur Methadone (NEGATIVE) Urine Barbiturates (NEGATIVE) Ur Phencyclidine (PCP) (NEGATIVE) Urine Amphetamine (NEGATIVE) U Benzodiazepine Level (NEGATIVE) Urine Cocaine (NEGATIVE) Urine Marijuana (THC) (NEGATIVE) - Progress Progress: improved Air Movement: good Progress Note: 01/17/23 23:01 Lab evaluation showed a sodium of 133, BUN of 35 and a creatinine of 1.72 it appears that his baseline creatinine is around 1. His initial troponin was negative and lipase was within normal limits. Chest x-ray was negative. EKG showed sinus rhythm without ST changes. Due to KONRAD and low sodium patient was given a normal saline bolus of 1 L. I will keep the patient for a second troponin due to his history of hypertension, hyperlipidemia and current use of cigarettes. 01/18/23 00:29 2nd troponin neg Blood Culture(s) Obtained: No Antibiotics given: No Counseled pt/family regarding: lab results, diagnosis, need for follow-up, rad results Medical Desision Making - Diagnostic Testing Diagnostic test were ordered, analyzed, and reviewed by me: Yes Radiological Interpretation: Interpreted by me - Risk of complications Low Risk: Low risk of morbidity from additional dx testing or treatment - Departure Departure Disposition: Home Clinical Impression: KONRAD (acute kidney injury), Chest pain in adult, Palpitations, Hyponatremia, Dehydration, Anxiety about health Condition: Good Critical Care Time: No Referrals: ERI LOZA MD [Primary Care Provider] - Follow up/PCP as directed Instructions: Acute Kidney Injury (DC)
[2023-01-17] MEDS ORDERED: BABY ASPIRIN 81 MG CHEW PO ONE (20:45)
[2023-01-17] MEDS ORDERED: Sodium Chloride 0.9% 1000 ML 1,000 ML IV STA (20:45)
[2023-01-17 20:56] LABS: Absolute Neutrophil Ct (ANC) 6.05 x10^3/uL (1.4-6.9); BASOPHIL % 0.4 % (0.0-0.4); Basophil (Absolute #) 0.04 x10^3/uL (0-0.4); Eosinophil % 1.6 % (0.00-5.0); Eosinophil (Absolute #) 0.14 x10^3/uL (0-0.5); IMMATURE GRAN # 0.06 x10^3u/L (0.00-0.03); IMMATURE GRAN % 0.7 % (0.00-0.4); Lymphocyte (Absolute #) 1.98 x10^3/uL (1.0-4.6); Lymphocytes % 22.3 % (24.0-44.0); Mean Cell Volume 90.9 fL (78-100); Mean Corpuscular Hemoglobin 30.9 pg (26-32); Mean Platelet Volume 9.7 fL (7.5-11.0); Monocyte (Absolute #) 0.62 x10^3/uL (0.0-1.3); Platelet Count 225 x10^3/uL (150-450); Red Blood Count 5.17 x10^6/uL (4.1-5.6); Red Cell Distribution Width 13.2 % (11.5-14.0); White Blood Count 8.9 x10^3/uL (4.0-10.5)
[2023-01-17] MEDS ORDERED: BABY ASPIRIN 81 MG CHEW ONE (20:57)
[2023-01-17] MEDS ORDERED: Sodium Chloride 0.9% 1000 ML 1,000 ML ONE (20:58)
[2023-01-17 21:10] LABS: ALBUMIN 4.8 g/dL (3.5-5.0); BILIRUBIN,TOTAL 0.7 mg/dL (0.2-1.3); Calcium 9.5 mg/dL (8.4-10.2); Creatinine 1 1.72 mg/dL (0.66-1.25); EST GLOMERULAR FILTRATION RATE 45.1 ML/MIN; Potassium 3.8 mmol/L (3.5-5.1); Total Protein 7.8 g/dL (6.3-8.2)
[2023-01-17 23:07] LABS: Appearance Clear (Clear); Bacteria None Seen /HPF (None Seen); Bilirubin Negative (Negative); Blood Trace (Negative); Epithelial Cells None Seen /HPF (None Seen); Glucose, Urine Negative (Negative); Hyaline Casts NONE SEEN /LPF (0-2); Ketones Negative (Negative); Leukocyte Esterase Negative (Negative); Nitrite Negative (Negative); Ph 5.5 (4.6-8.0); Protein,Urine Dip Negative (Negative); RBC 0-2 /HPF (0-5); Urobilinogen 0.2 mg/dL (0.2); WBC 0-2 /HPF (0-5)
[2023-01-17 23:09] LABS: ADD URINE CULTURE? NO (NO)
[2023-01-17 23:19] LABS: Amphetamine,Urine NEGATIVE (NEGATIVE); Barbiturate,Urine NEGATIVE (NEGATIVE); Benzodiazepine,Urine NEGATIVE (NEGATIVE); Cocaine,Urine NEGATIVE (NEGATIVE); Methadone,Urine NEGATIVE (NEGATIVE); Opiate,Urine NEGATIVE (NEGATIVE); PCP,Urine NEGATIVE (NEGATIVE); THC,Urine NEGATIVE (NEGATIVE)
[2023-01-18 00:02] VITALS: BP 105/74; PULSE 74
[2023-01-18 00:34] VITALS: O2SAT 100
--- NOTE | 2023-01-18 08:07 | XRAY ---
Indication: Chest pain. Comparison: July 21, 2022 Portable chest again demonstrates normal heart, lungs, and bony thorax with incidental left suprahilar calcified node.
== END 2023-01-18 00:46 | disposition home or self-care (01) ==
LOC: ED 20:26
DX: N17.9 Acute kidney failure, unspecified (principal); R07.9 Chest pain, unspecified; R00.2 Palpitations; E87.1 Hypo-osmolality and hyponatremia; E86.0 Dehydration; F45.9 Somatoform disorder, unspecified; R42 Dizziness and giddiness; E78.5 Hyperlipidemia, unspecified; I10 Essential (primary) hypertension; Z79.899 Other long term (current) drug therapy; Z28.310 Unvaccinated for COVID-19; Z72.0 Tobacco use
CPT/HCPCS: 36000; 36415; 71045; 80053; 80307; 81001; 83690; 83735; 84484; 85025; 93005; 93041; 94760; 96360; 99284; A9270-GY

== ENCOUNTER 2023-01-20 11:34 | Emergency (ER) | payer OTHER ==
[2023-01-20] MEDS ORDERED: Sodium Chloride 0.9% 1000 ML 1,000 ML IV STA (11:46)
[2023-01-20] MEDS ORDERED: BABY ASPIRIN 81 MG CHEW PO ONE (11:46)
[2023-01-20 11:55] LABS: Absolute Neutrophil Ct (ANC) 7.96 x10^3/uL (1.4-6.9); BASOPHIL % 0.3 % (0.0-0.4); Basophil (Absolute #) 0.03 x10^3/uL (0-0.4); Eosinophil % 0.7 % (0.00-5.0); Eosinophil (Absolute #) 0.07 x10^3/uL (0-0.5); Hematocrit 46.7 % (42-50); Hemoglobin 15.9 g/dL (12.5-18.0); IMMATURE GRAN # 0.07 x10^3u/L (0.00-0.03); IMMATURE GRAN % 0.7 % (0.00-0.4); Lymphocyte (Absolute #) 1.32 x10^3/uL (1.0-4.6); Lymphocytes % 12.9 % (24.0-44.0); Mean Cell Volume 89.6 fL (78-100); Mean Corpuscular Hemoglobin 30.5 pg (26-32); Mean Platelet Volume 9.7 fL (7.5-11.0); Monocytes % 7.8 % (0.0-12.0); Neutrophil % 77.6 % (36.0-66.0); Platelet Count 244 x10^3/uL (150-450); Red Blood Count 5.21 x10^6/uL (4.1-5.6); Red Cell Distribution Width 12.9 % (11.5-14.0); White Blood Count 10.3 x10^3/uL (4.0-10.5)
--- NOTE | 2023-01-20 12:10 | XRAY ---
Indication: Pneumonia. Palpitations. Comparison: January 17, 2023 PA/lateral chest continues to demonstrate normal heart, lungs, and bony thorax with incidental tiny left superhilar calcified node.
[2023-01-20] MEDS ORDERED: Sodium Chloride 0.9% 1000 ML 1,000 ML ONE (12:12)
[2023-01-20] MEDS ORDERED: BABY ASPIRIN 81 MG CHEW ONE (12:12)
[2023-01-20 12:23] LABS: ALKALINE PHOSPHATASE 74 U/L (38-126); ANION GAP 15.8 MEQ/L (5-15); BLOOD UREA NITROGEN 17 mg/dL (9-20); CHLORIDE 93 mmol/L (98-107); CK-Creatinine Phosphokinase 146 U/L (55-170); Calcium 9.7 mg/dL (8.4-10.2); Carbon Dioxide 27 mmol/L (22-30); Creatinine 1 1.12 mg/dL (0.66-1.25); EST GLOMERULAR FILTRATION RATE > 60.0 ML/MIN; Glucose 136 mg/dL (74-106); NT PRO BNPII < 20.0 pg/mL (<300); Potassium 4.2 mmol/L (3.5-5.1); SGOT/AST 36 U/L (17-59); SGPT/ALT 36 U/L (0-50); SODIUM 131 mmol/L (137-145); Total Protein 8.5 g/dL (6.3-8.2)
--- NOTE | 2023-01-20 12:37 | ERPHSYRPT ---
- History of Present Illness Time Seen by Provider: 01/20/23 11:38 Source: patient Exam Limitations: no limitations Patient Subjective Stated Complaint: pt states that he feels that he is having palpitations Triage Nursing Assessment: Pt brought to the ER by his , hypertensive, denies pain at this time, states that he feels his heart "skip a beat", pulses normal, cap refill normal, skin n/w/d, pt's breath smells sweet so BS tested and it is in the 140's and he has only had a couple of crackers, his last glucose he had taken in his labs was a fasting and it was high and his doctor talked to him about it, no difficulty with breathing and denies chest pain Physician History: Patient is here with palpitations. He was seen for similar symptoms 3 days ago in this emergency department. I was able to review this note. No falls no trauma. No actual chest pain or shortness of breath. Patient does smoke up to 20 cigarettes a day. Allergies/Adverse Reactions: Penicillins Allergy (Verified 01/20/23 11:56) Home Medications: Lisinopril 20 mg [Zestril 20 MG] 1 tab PO BID 02/14/22 [History] Rosuvastatin Calcium [Crestor] 1 tab PO DAILY 02/14/22 [History] hydroCHLOROthiazide [Hydrochlorothiazide] 1 tab PO DAILY 02/14/22 [History] Amlodipine Besylate 5 mg [Norvasc 5 mg] 10 mg PO DAILY 01/17/23 [History] Cyclobenzaprine HCl 10 mg [Cyclobenzaprine 10 MG] 1 tab PO DAILY PRN PRN 01/17/23 [History] Famotidine 20 mg PO DAILY 01/17/23 [History] Hx Tetanus, Diphtheria Vaccination/Date Given: Yes Hx Influenza Vaccination/Date Given: No Hx Pneumococcal Vaccination/Date Given: No Travel Risk - International Travel Have you traveled outside of the country in past 3 weeks: No - Coronavirus Screening Are you exhibiting any of the following symptoms?: No - Vaccine Status Have you recieved a Covid-19 vaccination: No - Review of Systems Constitutional: No Fever, No Chills Eyes: No Symptoms Ears, Nose, & Throat: No Symptoms Respiratory: No Cough, No Dyspnea Cardiac: Palpitations, No Chest Pain, No Edema, No Syncope Abdominal/Gastrointestinal: No Abdominal Pain, No Nausea, No Vomiting, No Diarrhea Genitourinary Symptoms: No Dysuria Musculoskeletal: No Back Pain, No Neck Pain Skin: No Rash Neurological: No Dizziness, No Focal Weakness, No Sensory Changes Psychological: No Symptoms Endocrine: No Symptoms All Other Systems: Reviewed and Negative - Past Medical History Pertinent Past Medical History: Yes Neurological History: No Pertinent History ENT History: No Pertinent History Cardiac History: High Cholesterol, Hypertension Respiratory History: Other Endocrine Medical History: No Pertinent History Musculoskeletal History: No Pertinent History GI Medical History: Diverticulitis History: No Pertinent History Psycho-Social History: Anxiety, Depression Male Reproductive Disorders: No Pertinent History - Past Surgical History Past Surgical History: No - Social History Smoking Status: Current every day smoker How long have you smoked: 30 yrs Exposure to second hand smoke: Yes Drug Use: none Patient Lives Alone: No - Nursing Vital Signs Nursing Vital Signs: Initial Vital Signs Temperature 98.5 F 01/20/23 11:36 Pulse Rate 96 H 01/20/23 11:36 Respiratory Rate 20 01/20/23 11:36 Blood Pressure 141/97 01/20/23 11:36 O2 Sat by Pulse Oximetry 98 01/20/23 11:36 Pain Scale Pain Intensity 0 - Physical Exam General Appearance: no apparent distress, alert Eye Exam: PERRL/EOMI, eyes nml inspection Ears, Nose, Throat Exam: normal ENT inspection, TMs normal, pharynx normal, mo ist mucous membranes Neck Exam: normal inspection, non-tender, supple, full range of motion Respiratory Exam: normal breath sounds, lungs clear, No respiratory distress Cardiovascular Exam: regular rate/rhythm, normal heart sounds, normal peripheral pulses Gastrointestinal/Abdomen Exam: soft, normal bowel sounds, No tenderness, No mass Back Exam: normal inspection, normal range of motion, No CVA tenderness, No vertebral tenderness Extremity Exam: normal inspection, normal range of motion, pelvis stable Neurologic Exam: alert, oriented x 3, cooperative, normal mood/affect, nml cerebellar function, nml station & gait, sensation nml, No motor deficits Skin Exam: normal color, warm, dry, No rash Lymphatic Exam: No adenopathy SpO2: 96 - Course Nursing assessment & vital signs reviewed: Yes EKG Interpreted by Me: Sinus Rhythm Ordered Tests: Active Orders 24 hr Category Date Time Status Sweep Press Operator STAT Care 01/20/23 11:46 Completed EKG-ER Only STAT Care 01/20/23 11:46 Completed IV Insertion STAT Care 01/20/23 11:46 Completed CHEST 2 VIEWS (PA AND LAT) Stat Exams 01/20/23 11:46 Completed CBC W DIFF Stat Lab 01/20/23 11:46 Completed CK-Creatinine Phosphokinase Stat Lab 01/20/23 11:46 Completed CMP Stat Lab 01/20/23 11:46 Completed D-DIMER QUANTITATIVE Stat Lab 01/20/23 11:46 Completed NT PRO BNPII Stat Lab 01/20/23 11:46 Completed POCT GLUCOSE Stat Lab 01/20/23 11:45 Completed TROPONIN Q4H Lab 01/20/23 12:00 Completed Bardy 3-7 Day Holter ONCE RT 01/20/23 12:32 Completed Medication Summary Discontinued Medications Generic Name Dose Route Start Last Admin Trade Name Freq PRN Reason Stop Dose Admin Aspirin 324 mg 01/20/23 11:46 01/20/23 12:13 Aspirin 81 Mg Tab.Chew PO 01/20/23 11:47 324 mg STAT ONE Administration Aspirin Confirm 01/20/23 12:12 Aspirin 81 Mg Tab.Chew Administered 01/20/23 12:13 Dose 324 mg .ROUTE .STK-MED ONE Sodium Chloride 1,000 mls @ 999 mls/hr 01/20/23 11:46 01/20/23 12:13 Sodium Chloride 0.9% 1000 Ml IV 01/20/23 12:46 999 mls/hr .Q1H1M STA Administration Sodium Chloride Confirm 01/20/23 12:12 Sodium Chloride 0.9% 1000 Ml Administered 01/20/23 12:13 Dose 1,000 mls @ ud .ROUTE .STK-MED ONE Lab/Rad Data: Laboratory Result Diagrams 01/20/23 11:46 01/20/23 11:46 Laboratory Results 01/20/23 01/20/23 01/20/23 Range/Units Unknown 12:00 11:46 WBC (4.0-10.5) x10^3/uL RBC (4.1-5.6) x10^6/uL Hgb (12.5-18.0) g/dL Hct (42-50) % MCV (78-100) fL MCH (26-32) pg MCHC (32-36) g/dL RDW (11.5-14.0) % Plt Count (150-450) x10^3/uL MPV (7.5-11.0) fL Gran % (36.0-66.0) % Immature Gran % (Auto) (0.00-0.4) % Nucleat RBC Rel Count (0.00-0.1) % Eos # (Auto) (0-0.5) x10^3/uL Immature Gran # (Auto) (0.00-0.03) x10^3u/L Absolute Lymphs (auto) (1.0-4.6) x10^3/uL Absolute Monos (auto) (0.0-1.3) x10^3/uL Absolute Nucleated RBC (0.00-0.01) x10^3u/L Lymphocytes % (24.0-44.0) % Monocytes % (0.0-12.0) % Eosinophils % (0.00-5.0) % Basophils % (0.0-0.4) % Absolute Granulocytes (1.4-6.9) x10^3/uL Basophils # (0-0.4) x10^3/uL D-Dimer < 0.19 (0.0-0.50) mg/L Sodium (137-145) mmol/L Potassium (3.5-5.1) mmol/L Chloride (98-107) mmol/L Carbon Dioxide (22-30) mmol/L Anion Gap (5-15) MEQ/L BUN (9-20) mg/dL Creatinine (0.66-1.25) mg/dL Estimated GFR ML/MIN Glucose (74-106) mg/dL POC Glucometer (74 to 106) mg/dL Hemoglobin A1c 5.38 (4.5-6.0) % Calcium (8.4-10.2) mg/dL Total Bilirubin (0.2-1.3) mg/dL AST (17-59) U/L ALT (0-50) U/L Alkaline Phosphatase (38-126) U/L Creatine Kinase (55-170) U/L Troponin I < 0.012 (0.000-0.034) ng/mL NT-Pro-B Natriuret Pep (<300) pg/mL Serum Total Protein (6.3-8.2) g/dL Albumin (3.5-5.0) g/dL 01/20/23 01/20/23 01/20/23 Range/Units 11:46 11:46 11:45 WBC 10.3 (4.0-10.5) x10^3/uL RBC 5.21 (4.1-5.6) x10^6/uL Hgb 15.9 (12.5-18.0) g/dL Hct 46.7 (42-50) % MCV 89.6 (78-100) fL MCH 30.5 (26-32) pg MCHC 34.0 (32-36) g/dL RDW 12.9 (11.5-14.0) % Plt Count 244 (150-450) x10^3/uL MPV 9.7 (7.5-11.0) fL Gran % 77.6 H (36.0-66.0) % Immature Gran % (Auto) 0.7 H (0.00-0.4) % Nucleat RBC Rel Count 0.0 (0.00-0.1) % Eos # (Auto) 0.07 (0-0.5) x10^3/uL Immature Gran # (Auto) 0.07 H (0.00-0.03) x10^3u/L Absolute Lymphs (auto) 1.32 (1.0-4.6) x10^3/uL Absolute Monos (auto) 0.80 (0.0-1.3) x10^3/uL Absolute Nucleated RBC 0.00 (0.00-0.01) x10^3u/L Lymphocytes % 12.9 L (24.0-44.0) % Monocytes % 7.8 (0.0-12.0) % Eosinophils % 0.7 (0.00-5.0) % Basophils % 0.3 (0.0-0.4) % Absolute Granulocytes 7.96 H (1.4-6.9) x10^3/uL Basophils # 0.03 (0-0.4) x10^3/uL D-Dimer (0.0-0.50) mg/L Sodium 131 L (137-145) mmol/L Potassium 4.2 (3.5-5.1) mmol/L Chloride 93 L (98-107) mmol/L Carbon Dioxide 27 (22-30) mmol/L Anion Gap 15.8 H (5-15) MEQ/L BUN 17 (9-20) mg/dL Creatinine 1.12 (0.66-1.25) mg/dL Estimated GFR > 60.0 ML/MIN Glucose 136 H (74-106) mg/dL POC Glucometer 142 H (74 to 106) mg/dL Hemoglobin A1c (4.5-6.0) % Calcium 9.7 (8.4-10.2) mg/dL Total Bilirubin 0.60 (0.2-1.3) mg/dL AST 36 (17-59) U/L ALT 36 (0-50) U/L Alkaline Phosphatase 74 (38-126) U/L Creatine Kinase 146 (55-170) U/L Troponin I (0.000-0.034) ng/mL NT-Pro-B Natriuret Pep < 20.0 (<300) pg/mL Serum Total Protein 8.5 H (6.3-8.2) g/dL Albumin 5.0 (3.5-5.0) g/dL - Progress Progress: improved Progress Note: 01/20/23 13:20 differential diagnosis includes: PNA, STEMI, NSTEMI, other infection, musculoskeletal pain, pneumothorax - We'll obtain basic labs, fluids, EKG, troponin, chest x-ray - I feel comfortable with one time negative troponin given symptoms have improved and started greater then 6 hours ago. - EKG shows no ST changes - my read. See full read below. - O2 saturations consistently greater than 95%. - CXR shows no pneumonia, pneumothorax - my read - no other obvious lab abnormalities Patient did have a Holter monitor placed today. This will be read by outpatient cardiology. No other obvious red flag symptoms. Patient's D-dimer was negative today. Therefore much less likely to be a PE. Patient will need to return here for any new or changing symptoms. Close follow-up with PCP. Patient does have PCP scheduled next Wednesday. Counseled pt/family regarding: lab results, diagnosis, need for follow-up, rad results - Departure Departure Disposition: Home Clinical Impression: Intermittent palpitations Condition: Stable Critical Care Time: No Referrals: ERI LOZA MD [Primary Care Provider] - Follow up/PCP as directed Instructions: Palpitations (DC)
[2023-01-20 13:02] VITALS: BP 128/86; PULSE 83
[2023-01-20 13:21] VITALS: O2SAT 96
== END 2023-01-20 13:08 | disposition home or self-care (01) ==
LOC: ED 11:34
DX: R00.2 Palpitations (principal); E78.5 Hyperlipidemia, unspecified; I10 Essential (primary) hypertension; Z79.899 Other long term (current) drug therapy; Z28.310 Unvaccinated for COVID-19; Z72.0 Tobacco use
CPT/HCPCS: 36000; 36415; 71046; 80053; 82550; 82947; 83036; 83880; 84484; 85025; 85379; 93005; 93041; 93225; 99284; A9270-GY

== ENCOUNTER 2023-02-07 19:35 | Emergency (ER) | payer OTHER ==
[2023-02-07 19:49] VITALS: O2SAT 97
[2023-02-07] MEDS ORDERED: BABY ASPIRIN 81 MG CHEW PO ONE (20:26)
[2023-02-07] MEDS ORDERED: PROTONIX 40 MG IV IV ONE ×2 (20:27→20:29)
[2023-02-07] MEDS ORDERED: BABY ASPIRIN 81 MG CHEW ONE (20:29)
--- NOTE | 2023-02-07 20:31 | ERPHSYRPT ---
- History of Present Illness Time Seen by Provider: 02/07/23 19:43 Historian: patient Exam Limitations: no limitations Patient Subjective Stated Complaint: Pt reports at approx 1pm today he started experiencing chest pains, indigestion, nausea, palpitations. Burning in chest as well. Pt said he has been to ED approx 3 times in the last month. Triage Nursing Assessment: Pt alert and oriented x3. No apparent respiratory distress. Ambulated to ED cot without difficulty. Accompanied by significant other. Skin w/p/d. S1 and S2 auscultated. Physician History: 48 years old male with history of hypertension, anxiety, tobacco abuse presented in the ER with chief complaint of chest pain and palpitations with some shortnes s of breath. Patient reports this has been going off and on for the last 3 weeks. He has a Holter monitoring but does not know the results. Patient reports he was walking to the gas station earlier almost a block away and started to have chest tightness palpitations and improved with resting. It is substernal, nonradiating, without associated fever or chills. Has chronic smoker's cough which is not any worse than usual. Patient feels he has minimal discomfort at present. Patient also believes it might be his panic attacks. Timing/Duration: today, intermittent, improved Activities at Onset: activity Quality: burning Location: substernal Chest Pain Radiation: no radiation Severity of Pain-Max: moderate Severity of Pain-Current: mild Modifying Factors: Improves With: rest. Worsens With: exertion Associated Symptoms: shortness of breath Nitro Today/Relief: no nitro taken today Aspirin Treatment Today: unknown Allergies/Adverse Reactions: Penicillins Allergy (Verified 02/07/23 19:36) Home Medications: Lisinopril 20 mg [Zestril 20 MG] 1 tab PO BID 02/14/22 [History] Rosuvastatin Calcium [Crestor] 1 tab PO DAILY 02/14/22 [History] hydroCHLOROthiazide [Hydrochlorothiazide] 1 tab PO DAILY 02/14/22 [History] Amlodipine Besylate 5 mg [Norvasc 5 mg] 10 mg PO DAILY 01/17/23 [History] Cyclobenzaprine HCl 10 mg [Cyclobenzaprine 10 MG] 1 tab PO DAILY PRN PRN 01/17/23 [History] Famotidine 20 mg PO DAILY 01/17/23 [History] Buspirone HCl 5 mg [Buspar 5 mg] 10 mg PO BID 02/07/23 [History] Hx Tetanus, Diphtheria Vaccination/Date Given: Yes Hx Influenza Vaccination/Date Given: No Hx Pneumococcal Vaccination/Date Given: No Travel Risk - International Travel Have you traveled outside of the country in past 3 weeks: No - Coronavirus Screening Are you exhibiting any of the following symptoms?: No Close contact with a COVID-19 positive Pt in past 14-21 Days: No - Vaccine Status Have you recieved a Covid-19 vaccination: No - Review of Systems Constitutional: No Symptoms Eyes: No Symptoms Ears, Nose, & Throat: No Symptoms Respiratory: Dyspnea Cardiac: Chest Pain, Palpitations Abdominal/Gastrointestinal: No Symptoms Genitourinary Symptoms: No Symptoms Musculoskeletal: No Symptoms Skin: No Symptoms Neurological: No Symptoms Psychological: Anxiety Hematologic/Lymphatic: No Symptoms Immunological/Allergic: No Symptoms - Past Medical History Pertinent Past Medical History: Yes Neurological History: No Pertinent History ENT History: No Pertinent History Cardiac History: High Cholesterol, Hypertension Respiratory History: Other Endocrine Medical History: No Pertinent History Musculoskeletal History: No Pertinent History GI Medical History: Diverticulitis History: No Pertinent History Psycho-Social History: Anxiety, Depression Male Reproductive Disorders: No Pertinent History - Past Surgical History Past Surgical History: No - Social History Smoking Status: Current every day smoker How long have you smoked: 30 yrs Exposure to second hand smoke: Yes Drug Use: none Patient Lives Alone: No - Nursing Vital Signs Nursing Vital Signs: Initial Vital Signs Temperature 98.2 F 02/07/23 19:36 Pulse Rate 97 H 02/07/23 19:36 Respiratory Rate 16 02/07/23 19:36 Blood Pressure 134/104 02/07/23 19:36 O2 Sat by Pulse Oximetry 97 02/07/23 19:36 Pain Scale Pain Intensity 0 - Physical Exam General Appearance: no apparent distress, alert, anxiety Eye Exam: PERRL/EOMI, eyes nml inspection Ears, Nose, Throat Exam: normal ENT inspection, TMs normal, pharynx normal, moist mucous membranes Neck Exam: normal inspection, non-tender, supple, full range of motion Respiratory Exam: normal breath sounds, lungs clear Cardiovascular Exam: regular rate/rhythm, normal heart sounds Gastrointestinal/Abdomen Exam: soft, normal bowel sounds, No tenderness Back Exam: normal inspection, normal range of motion Extremity Exam: normal inspection, normal range of motion Neurologic Exam: alert, oriented x 3, cooperative, brake holder II-XII nml as tested, No normal mood/affect Skin Exam: normal color SpO2 Interpretation: normal SpO2: 97 O2 Delivery: Room Air - Course EKG Interpreted by Me: RATE (95), Sinus Rhythm, NORMAL AXIS, NORMAL INTERVALS, NORMAL QRS, Other (Nonspecific T wave changes) Ordered Tests: Active Orders 24 hr Category Date Time Status Variety Lathe Operator STAT Care 02/07/23 20:16 Active EKG-ER Only STAT Care 02/07/23 20:15 Active IV Insertion STAT Care 02/07/23 20:15 Active CHEST 1 VIEW (PORTABLE) Stat Exams 02/07/23 20:16 Completed CBC W DIFF Stat Lab 02/07/23 19:00 Completed CMP Stat Lab 02/07/23 19:00 Completed D-DIMER QUANTITATIVE Stat Lab 02/07/23 19:00 Completed FREE T3 [FREE TRIODOTHYRONINE] Stat Lab 02/07/23 19:00 Completed NT PRO BNPII Stat Lab 02/07/23 19:00 Completed TROPONIN Q4H Lab 02/07/23 19:00 Completed TROPONIN Q4H Lab 02/07/23 23:35 Completed TSH [TSH, 3RD Generation] Stat Lab 02/07/23 19:00 Completed Medication Summary Discontinued Medications Generic Name Dose Route Start Last Admin Trade Name Freq PRN Reason Stop Dose Admin Aspirin 324 mg 02/07/23 20:26 02/07/23 20:30 Aspirin 81 Mg Tab.Chew PO 02/07/23 20:27 324 mg STAT ONE Administration Aspirin Confirm 02/07/23 20:29 Aspirin 81 Mg Tab.Chew Administered 02/07/23 20:30 Dose 324 mg .ROUTE .STK-MED ONE Sodium Chloride 1,000 mls @ 999 mls/hr 02/07/23 21:31 02/07/23 22:59 Sodium Chloride 0.9% 1000 Ml IV 02/07/23 22:31 Infused .Q1H1M STA Infusion Sodium Chloride Confirm 02/07/23 21:53 Sodium Chloride 0.9% 1000 Ml Administered 02/07/23 21:54 Dose 1,000 mls @ ud .ROUTE .STK-MED ONE Ondansetron HCl 4 mg 02/07/23 21:06 02/07/23 21:20 Ondansetron Hcl 4 Mg/2 Ml Vial IV 02/07/23 21:07 Not Given STAT ONE Ondansetron HCl Confirm 02/07/23 21:17 Ondansetron Hcl 4 Mg/2 Ml Vial Administered 02/07/23 21:18 Dose 4 mg .ROUTE .STK-MED ONE Pantoprazole Sodium 40 mg 02/07/23 20:27 02/07/23 20:31 Pantoprazole 40 Mg Vial IV 02/07/23 20:28 40 mg STAT ONE Administration Pantoprazole Sodium Confirm 02/07/23 20:29 Pantoprazole 40 Mg Vial Administered 02/07/23 20:30 Dose 40 mg IV .STK-MED ONE Lab/Rad Data: Laboratory Result Diagrams 02/07/23 19:00 02/07/23 19:00 Laboratory Results 02/07/23 02/07/23 02/07/23 Range/Units 23:35 19:00 19:00 WBC (4.0-10.5) x10^3/uL RBC (4.1-5.6) x10^6/uL Hgb (12.5-18.0) g/dL Hct (42-50) % MCV (78-100) fL MCH (26-32) pg MCHC (32-36) g/dL RDW (11.5-14.0) % Plt Count (150-450) x10^3/uL MPV (7.5-11.0) fL Gran % (36.0-66.0) % Immature Gran % (Auto) (0.00-0.4) % Nucleat RBC Rel Count (0.00-0.1) % Eos # (Auto) (0-0.5) x10^3/uL Immature Gran # (Auto) (0.00-0.03) x10^3u/L Absolute Lymphs (auto) (1.0-4.6) x10^3/uL Absolute Monos (auto) (0.0-1.3) x10^3/uL Absolute Nucleated RBC (0.00-0.01) x10^3u/L Lymphocytes % (24.0-44.0) % Monocytes % (0.0-12.0) % Eosinophils % (0.00-5.0) % Basophils % (0.0-0.4) % Absolute Granulocytes (1.4-6.9) x10^3/uL Basophils # (0-0.4) x10^3/uL D-Dimer (0.0-0.50) mg/L Sodium (137-145) mmol/L Potassium (3.5-5.1) mmol/L Chloride (98-107) mmol/L Carbon Dioxide (22-30) mmol/L Anion Gap (5-15) MEQ/L BUN (9-20) mg/dL Creatinine (0.66-1.25) mg/dL Estimated GFR ML/MIN Glucose (74-106) mg/dL Calcium (8.4-10.2) mg/dL Total Bilirubin (0.2-1.3) mg/dL AST (17-59) U/L ALT (0-50) U/L Alkaline Phosphatase (38-126) U/L Troponin I < 0.012 (0.000-0.034) ng/mL NT-Pro-B Natriuret Pep (<300) pg/mL Serum Total Protein (6.3-8.2) g/dL Albumin (3.5-5.0) g/dL Free T4 1.04 (0.78-2.19) ng/dL Free T3 pg/mL 5.05 (2.77-5.27) pg/mL TSH 3rd Generation (0.47-4.68) mIU/L 02/07/23 02/07/23 02/07/23 Range/Units 19:00 19:00 19:00 WBC (4.0-10.5) x10^3/uL RBC (4.1-5.6) x10^6/uL Hgb (12.5-18.0) g/dL Hct (42-50) % MCV (78-100) fL MCH (26-32) pg MCHC (32-36) g/dL RDW (11.5-14.0) % Plt Count (150-450) x10^3/uL MPV (7.5-11.0) fL Gran % (36.0-66.0) % Immature Gran % (Auto) (0.00-0.4) % Nucleat RBC Rel Count (0.00-0.1) % Eos # (Auto) (0-0.5) x10^3/uL Immature Gran # (Auto) (0.00-0.03) x10^3u/L Absolute Lymphs (auto) (1.0-4.6) x10^3/uL Absolute Monos (auto) (0.0-1.3) x10^3/uL Absolute Nucleated RBC (0.00-0.01) x10^3u/L Lymphocytes % (24.0-44.0) % Monocytes % (0.0-12.0) % Eosinophils % (0.00-5.0) % Basophils % (0.0-0.4) % Absolute Granulocytes (1.4-6.9) x10^3/uL Basophils # (0-0.4) x10^3/uL D-Dimer < 0.19 (0.0-0.50) mg/L Sodium (137-145) mmol/L Potassium (3.5-5.1) mmol/L Chloride (98-107) mmol/L Carbon Dioxide (22-30) mmol/L Anion Gap (5-15) MEQ/L BUN (9-20) mg/dL Creatinine (0.66-1.25) mg/dL Estimated GFR ML/MIN Glucose (74-106) mg/dL Calcium (8.4-10.2) mg/dL Total Bilirubin (0.2-1.3) mg/dL AST (17-59) U/L ALT (0-50) U/L Alkaline Phosphatase (38-126) U/L Troponin I (0.000-0.034) ng/mL NT-Pro-B Natriuret Pep < 20.0 (<300) pg/mL Serum Total Protein (6.3-8.2) g/dL Albumin (3.5-5.0) g/dL Free T4 (0.78-2.19) ng/dL Free T3 pg/mL (2.77-5.27) pg/mL TSH 3rd Generation 0.314 L (0.47-4.68) mIU/L 02/07/23 02/07/23 02/07/23 Range/Units 19:00 19:00 19:00 WBC 11.1 H (4.0-10.5) x10^3/uL RBC 5.11 (4.1-5.6) x10^6/uL Hgb 15.5 (12.5-18.0) g/dL Hct 45.7 (42-50) % MCV 89.4 (78-100) fL MCH 30.3 (26-32) pg MCHC 33.9 (32-36) g/dL RDW 13.0 (11.5-14.0) % Plt Count 234 (150-450) x10^3/uL MPV 9.8 (7.5-11.0) fL Gran % 78.7 H (36.0-66.0) % Immature Gran % (Auto) 0.6 H (0.00-0.4) % Nucleat RBC Rel Count 0.0 (0.00-0.1) % Eos # (Auto) 0.07 (0-0.5) x10^3/uL Immature Gran # (Auto) 0.07 H (0.00-0.03) x10^3u/L Absolute Lymphs (auto) 1.43 (1.0-4.6) x10^3/uL Absolute Monos (auto) 0.77 (0.0-1.3) x10^3/uL Absolute Nucleated RBC 0.00 (0.00-0.01) x10^3u/L Lymphocytes % 12.9 L (24.0-44.0) % Monocytes % 6.9 (0.0-12.0) % Eosinophils % 0.6 (0.00-5.0) % Basophils % 0.3 (0.0-0.4) % Absolute Granulocytes 8.72 H (1.4-6.9) x10^3/uL Basophils # 0.03 (0-0.4) x10^3/uL D-Dimer (0.0-0.50) mg/L Sodium 130 L (137-145) mmol/L Potassium 3.6 (3.5-5.1) mmol/L Chloride 92 L (98-107) mmol/L Carbon Dioxide 22 (22-30) mmol/L Anion Gap 18.9 H (5-15) MEQ/L BUN 20 (9-20) mg/dL Creatinine 1.16 (0.66-1.25) mg/dL Estimated GFR > 60.0 ML/MIN Glucose 117 H (74-106) mg/dL Calcium 9.9 (8.4-10.2) mg/dL Total Bilirubin 1.30 (0.2-1.3) mg/dL AST 36 (17-59) U/L ALT 38 (0-50) U/L Alkaline Phosphatase 77 (38-126) U/L Troponin I < 0.012 (0.000-0.034) ng/mL NT-Pro-B Natriuret Pep (<300) pg/mL Serum Total Protein 8.3 H (6.3-8.2) g/dL Albumin 4.8 (3.5-5.0) g/dL Free T4 (0.78-2.19) ng/dL Free T3 pg/mL (2.77-5.27) pg/mL TSH 3rd Generation (0.47-4.68) mIU/L - Progress Progress: improved, re-examined Air Movement: good Progress Note: 02/07/23 20:30 48 years old male with history of hypertension, anxiety, tobacco abuse presented in the ER with chief complaint of chest pain and palpitations with some s hortness of breath. Patient reports this has been going off and on for the last 3 weeks. He has a Holter monitoring but does not know the results. Patient reports he was walking to the gas station earlier almost a block away and started to have chest tightness palpitations and improved with resting. It is substernal, nonradiating, without associated fever or chills. Has chronic smoker's cough which is not any worse than usual. Patient feels he has minimal discomfort at present. Patient also believes it might be his panic attacks. Patient does not have any significant chest pain at present. Not tachypneic or tachycardic. Patient though is very anxious. EKG is sinus rhythm with no ST elevations. I have reviewed his Holter monitor from previous which showed occasional PACs and frequent PVCs. Will obtain chest pain work-up and TSH. 02/07/23 23:26 Patient is feeling much better on reevaluation. Work-up showed normal white count, normal initial troponin, mildly low sodium and elevated gap, given fluids. Patient has mildly low TSH 0.3 but free T3/T4 are normal. Patient has negative D-dimers as well. Chest x-ray negative for any acute cardiopulmonary findings. I believe part of symptoms is secondary to anxiety as well with some element of dehydration contributing to it as well. Patient does have PVCs on Holter monitoring which need further evaluation and recommended outpatient cardiology follow-up. I would not start him on any beta-francisco and will leave it up to his primary care/cardiology for palpitations. Patient has a low heart score, will obtain second troponin and if negative patient will be discharged with outpatient follow-up. I have discussed the results of work-up so far and plan of outpatient follow-up which she understand and agrees with it. 02/08/23 00:15 Second troponin and is negative as well. Patient is asymptomatic. Stable for discharge. Blood Culture(s) Obtained: No Antibiotics given: No Counseled pt/family regarding: lab results, diagnosis, need for follow-up, rad results, smoking cessation Medical Desision Making - Independent Historian Additional History obtained from: Spouse - Diagnostic Testing Diagnostic test were ordered, analyzed, and reviewed by me: Yes Radiological Interpretation: Reviewed by me - Departure Departure Disposition: Home Clinical Impression: Atypical chest pain, Intermittent palpitations, Dehydration Condition: Stable Critical Care Time: No Referrals: ERI LOZA MD [Primary Care Provider] - Follow up/PCP as directed Instructions: Angina (DC), Palpitations (DC) Additional Instructions: Drink plenty of fluids to keep yourself well-hydrated. Follow-up with primary care for reevaluation and may need referral for cardiology/endocrinology. Return to ER for worsening chest pain/palpitations or if having difficulty breathing. Cut down on smoking.
[2023-02-07 20:52] LABS: Absolute Neutrophil Ct (ANC) 8.72 x10^3/uL (1.4-6.9); BASOPHIL % 0.3 % (0.0-0.4); Basophil (Absolute #) 0.03 x10^3/uL (0-0.4); Eosinophil % 0.6 % (0.00-5.0); Eosinophil (Absolute #) 0.07 x10^3/uL (0-0.5); Hematocrit 45.7 % (42-50); Hemoglobin 15.5 g/dL (12.5-18.0); IMMATURE GRAN # 0.07 x10^3u/L (0.00-0.03); IMMATURE GRAN % 0.6 % (0.00-0.4); Lymphocyte (Absolute #) 1.43 x10^3/uL (1.0-4.6); Lymphocytes % 12.9 % (24.0-44.0); Mean Cell Volume 89.4 fL (78-100); Mean Corpuscular Hemoglobin 30.3 pg (26-32); Mean Corpuscular Hgb Concent. 33.9 g/dL (32-36); Mean Platelet Volume 9.8 fL (7.5-11.0); Monocyte (Absolute #) 0.77 x10^3/uL (0.0-1.3); Monocytes % 6.9 % (0.0-12.0); Neutrophil % 78.7 % (36.0-66.0); Platelet Count 234 x10^3/uL (150-450); Red Blood Count 5.11 x10^6/uL (4.1-5.6); White Blood Count 11.1 x10^3/uL (4.0-10.5)
[2023-02-07 21:04] LABS: ALBUMIN 4.8 g/dL (3.5-5.0); ALKALINE PHOSPHATASE 77 U/L (38-126); ANION GAP 18.9 MEQ/L (5-15); BLOOD UREA NITROGEN 20 mg/dL (9-20); CHLORIDE 92 mmol/L (98-107); Calcium 9.9 mg/dL (8.4-10.2); Carbon Dioxide 22 mmol/L (22-30); Creatinine 1 1.16 mg/dL (0.66-1.25); EST GLOMERULAR FILTRATION RATE > 60.0 ML/MIN; Glucose 117 mg/dL (74-106); Potassium 3.6 mmol/L (3.5-5.1); SGOT/AST 36 U/L (17-59); SGPT/ALT 38 U/L (0-50); SODIUM 130 mmol/L (137-145); Total Protein 8.3 g/dL (6.3-8.2)
[2023-02-07] MEDS ORDERED: Zofran 4 MG/2 ML VIAL IV ONE (21:06)
[2023-02-07] MEDS ORDERED: Zofran 4 MG/2 ML VIAL ONE (21:17)
[2023-02-07] MEDS ORDERED: Sodium Chloride 0.9% 1000 ML 1,000 ML IV STA (21:31)
[2023-02-07] MEDS ORDERED: Sodium Chloride 0.9% 1000 ML 1,000 ML ONE (21:53)
--- NOTE | 2023-02-07 23:06 | XRAY ---
CLINICAL HISTORY:Chest pain; COMPARISON:None; TECHNIQUES:X-ray of the chest, PA 1 view; FINDINGS: Radiographic examination of the chest demonstrates clear lungs. Normal configuration of the mediastinum. The chana are normal in size and position. The cardiac size is normal. The bony thorax is unremarkable. The costophrenic and cardiophrenic angles are clear. IMPRESSION: No gross abnormality was detected in the chest radiograph. Electronically Signed by: Andre Dickey MD. 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
[2023-02-07 23:38] VITALS: BP 107/70
[2023-02-07 23:39] VITALS: PULSE 73
== END 2023-02-08 00:35 | disposition home or self-care (01) ==
LOC: ED 19:35
DX: R07.89 Other chest pain (principal); R00.2 Palpitations; E86.0 Dehydration; R06.02 Shortness of breath; I10 Essential (primary) hypertension; E78.5 Hyperlipidemia, unspecified; Z79.899 Other long term (current) drug therapy; Z28.310 Unvaccinated for COVID-19; Z72.0 Tobacco use
CPT/HCPCS: 36000; 36415; 71045; 80053; 83880; 84439; 84443; 84481; 84484; 85025; 85379; 93005; 93041; 96374; 99284; J2405; A9270-GY

== ENCOUNTER 2023-04-16 10:36 | Emergency (ER) | payer OTHER ==
[2023-04-16] MEDS ORDERED: Pepcid 20 MG VIAL IV STA (10:37)
[2023-04-16] MEDS ORDERED: DECADRON 10MG INJ. IV ONE (10:38)
[2023-04-16] MEDS ORDERED: Pepcid 20 MG VIAL IV ONE ×2 (10:49→10:56)
[2023-04-16] MEDS ORDERED: DECADRON 10MG INJ. ONE (10:56)
--- NOTE | 2023-04-16 11:05 | ERPHSYRPT ---
- History of Present Illness Source: patient, EMS Exam Limitations: no limitations Patient Subjective Stated Complaint: pt was stung by a bee in the left side of the neck and he was home alone and got scared when he felt it swelling Triage Nursing Assessment: Pt was brought by EMS to the ER, hypertensive, rates sting pain as 2/10, no difficulty speaking or breathing, no swelling noted in the back of the throat, doesn't appear to be in any distress Physician History: 48 yo male brought to ER by EMS w throat tightness after getting stung by a wasp. EMS established IV access and gave 25mg IV benadryl. Pt arrived in NAD w a great airway. Timing/Duration: other (Before arrival) Modifying Factors: Improves With: nothing Associated Symptoms: denies symptoms Allergies/Adverse Reactions: Penicillins Allergy (Verified 04/16/23 10:44) Home Medications: Lisinopril 20 mg [Zestril 20 MG] 1 tab PO BID 02/14/22 [History] Rosuvastatin Calcium [Crestor] 1 tab PO DAILY 02/14/22 [History] Amlodipine Besylate 5 mg [Norvasc 5 mg] 10 mg PO DAILY 01/17/23 [History] Cyclobenzaprine HCl 10 mg [Cyclobenzaprine 10 MG] 1 tab PO DAILY PRN PRN 01/17/23 [History] Famotidine 20 mg PO DAILY 01/17/23 [History] Metoprolol Succinate 25 mg Xl* [Toprol-Xl 25MG Tablets] 25 mg PO DAILY 04/16/23 [History] Hx Tetanus, Diphtheria Vaccination/Date Given: Yes Hx Influenza Vaccination/Date Given: No Hx Pneumococcal Vaccination/Date Given: No Travel Risk - International Travel Have you traveled outside of the country in past 3 weeks: No - Coronavirus Screening Are you exhibiting any of the following symptoms?: No Close contact with a COVID-19 positive Pt in past 14-21 Days: No - Vaccine Status Have you recieved a Covid-19 vaccination: No - Review of Systems Constitutional: No Symptoms Eyes: No Symptoms Ears, Nose, & Throat: No Symptoms, Throat Swelling Respiratory: No Symptoms Cardiac: No Symptoms Abdominal/Gastrointestinal: No Symptoms Genitourinary Symptoms: No Symptoms Musculoskeletal: No Symptoms Skin: No Symptoms Neurological: No Symptoms Psychological: No Symptoms Endocrine: No Symptoms Hematologic/Lymphatic: No Symptoms Immunological/Allergic: No Symptoms - Past Medical History Pertinent Past Medical History: Yes Neurological History: No Pertinent History ENT History: No Pertinent History Cardiac History: High Cholesterol, Hypertension Respiratory History: Other Endocrine Medical History: No Pertinent History Musculoskeletal History: No Pertinent History GI Medical History: Diverticulitis History: No Pertinent History Psycho-Social History: Anxiety, Depression Male Reproductive Disorders: No Pertinent History - Past Surgical History Past Surgical History: No - Social History Smoking Status: Current every day smoker How long have you smoked: 30 yrs Exposure to second hand smoke: Yes Drug Use: none Patient Lives Alone: No - Nursing Vital Signs Nursing Vital Signs: Initial Vital Signs Pulse Rate 91 H 04/16/23 10:37 Blood Pressure 143/89 04/16/23 10:37 O2 Sat by Pulse Oximetry 97 04/16/23 10:37 Pain Scale Pain Intensity 2 Hypertensive - Physical Exam General Appearance: no apparent distress, anxiety Eye Exam: PERRL/EOMI, eyes nml inspection Ears, Nose, Throat Exam: normal ENT inspection, TMs normal, pharynx normal, moist mucous membranes, other (Small, edematous area L submandibular area where he was stung) Neck Exam: normal inspection, non-tender, supple, full range of motion, No meningismus, No mass, No Brudzinski, No Kernig's Respiratory Exam: normal breath sounds, lungs clear, airway intact, No chest tenderness, No respiratory distress Cardiovascular Exam: regular rate/rhythm, normal heart sounds, normal peripheral pulses, capillary refill <2 sec, No murmur Gastrointestinal/Abdomen Exam: soft, normal bowel sounds, No tenderness Back Exam: normal inspection, normal range of motion, No CVA tenderness, No vertebral tenderness Extremity Exam: normal inspection, normal range of motion Neurologic Exam: alert, oriented x 3, cooperative, 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, normal mood/affect, nml cerebellar function, nml station & gait, sensation nml Skin Exam: normal color, warm, dry Lymphatic Exam: No adenopathy SpO2 Interpretation: normal SpO2: 97 O2 Delivery: Room Air - Course Nursing assessment & vital signs reviewed: Yes Ordered Tests: Active Orders 24 hr Category Date Time Status IV Insertion STAT Care 04/16/23 10:55 Completed Medication Summary Discontinued Medications Generic Name Dose Route Start Last Admin Trade Name Kimberly PRN Reason Stop Dose Admin Dexamethasone Sodium Phosphate 10 mg 04/16/23 10:38 04/16/23 10:56 Dexamethasone Sod Phosphate 10 Mg/Ml IV 04/16/23 10:39 10 mg STAT ONE Administration Dexamethasone Sodium Phosphate Confirm 04/16/23 10:56 Dexamethasone Sod Phosphate 10 Mg/Ml Administered 04/16/23 10:57 Dose 10 mg .ROUTE .STK-MED ONE Famotidine 40 mg 04/16/23 10:37 04/16/23 10:56 Famotidine 20 Mg/1 Vial IV 04/16/23 10:38 Not Given DAILY STA Famotidine 20 mg 04/16/23 10:49 04/16/23 10:56 Famotidine 20 Mg/1 Vial IV 04/16/23 10:50 20 mg STAT ONE Administration Famotidine Confirm 04/16/23 10:56 Famotidine 20 Mg/1 Vial Administered 04/16/23 10:57 Dose 20 mg IV .STK-MED ONE - Progress Progress: improved Progress Note: 04/16/23 11:42 Nursing note and vital signs reviewed No food or housing insecurities noted Additional history per EMS 20mg IV Pepcid/10mg IV Decadron w improvement Pt w great airway during entire stay wo evidence of anaphylaxis Counseled pt/family regarding: diagnosis, need for follow-up Medical Desision Making - Independent Historian Additional History obtained from: EMS - Risk of complications The pt has a mod risk of morbidity or mortality based on: Need for prescription drug management - Departure Departure Disposition: Home Clinical Impression: Wasp sting Condition: Stable Critical Care Time: No Referrals: ERI LOZA MD [Primary Care Provider] - Follow up/PCP as directed Instructions: Insect Bites and Stings (DC) Additional Instructions: Benadryl 25mg every 6 hours as needed Ice sting site as needed for swelling Epinephrine as needed for severe allergic reaction/May repeat x1 in 5 minutes if no improvement Prescriptions: EPINEPHrine [Epipen 2-Anshul] 0.3 mg IM DAILY PRN PRN #1 packet PRN Reason: Allergies
[2023-04-16 11:53] VITALS: BP 132/95; PULSE 80; RESP 16
[2023-04-16 15:47] VITALS: O2SAT 97
== END 2023-04-16 11:57 | disposition home or self-care (01) ==
LOC: ED 10:36
DX: T63.461A Toxic effect of venom of wasps, accidental (unintentional), initial encounter (principal); E78.5 Hyperlipidemia, unspecified; I10 Essential (primary) hypertension; Z79.899 Other long term (current) drug therapy; Z28.310 Unvaccinated for COVID-19; Z72.0 Tobacco use
CPT/HCPCS: 36000; 96374; 96375; 99283; J1100

== ENCOUNTER 2023-05-28 15:05 | Emergency (ER) | payer MEDICAID, OTHER ==
--- NOTE | 2023-05-28 15:15 | ERPHSYRPT ---
- History of Present Illness Time Seen by Provider: 05/28/23 15:15 Source: patient Exam Limitations: no limitations Physician History: This is a 48-year-old white male patient presents with tenderness in the right upper molars as well as pain in the right cheek. Patient was seen at [facility] emergency department 2 days ago. I reviewed the records that were sent to me from that facility on that visit. Patient was given a prescription for clindamycin. He does not feel that his symptoms have improved. He has no stridor. He has no difficulty swallowing or maintaining his secretions. He states he does feel little short of breath. He has no chest pain. He denies fever. Patient is a very anxious individual. He does have a history of tobacco abuse, peptic ulcer disease, hypertension hyperlipidemia. Patient states he is allergic to penicillin. He believes he has had Keflex in the past without any problems. Patient's primary issue is the infection that is present. Timing/Duration: day(s) (2) Activities at Onset: none Severity of Dyspnea-Max: mild Severity of Dyspnea-Current: none Possible Cause: occasional episodes Modifying Factors: Improves With: nothing Associated Symptoms: denies symptoms, anxiety Allergies/Adverse Reactions: Penicillins Allergy (Verified 05/28/23 15:06) Home Medications: Lisinopril 20 mg [Zestril 20 MG] 1 tab PO BID 02/14/22 [History] Rosuvastatin Calcium [Crestor] 1 tab PO DAILY 02/14/22 [History] Amlodipine Besylate 5 mg [Norvasc 5 mg] 10 mg PO DAILY 01/17/23 [History] Famotidine 20 mg PO BID 01/17/23 [History] Metoprolol Succinate 25 mg Xl* [Toprol-Xl 25MG Tablets] 25 mg PO DAILY 04/16/23 [History] Hx Tetanus, Diphtheria Vaccination/Date Given: Yes Hx Influenza Vaccination/Date Given: No Hx Pneumococcal Vaccination/Date Given: No Travel Risk - International Travel Have you traveled outside of the country in past 3 weeks: No - Coronavirus Screening Are you exhibiting any of the following symptoms?: No Close contact with a COVID-19 positive Pt in past 14-21 Days: No - Vaccine Status Have you recieved a Covid-19 vaccination: No - Review of Systems Constitutional: No Symptoms Eyes: No Symptoms Ears, Nose, & Throat: Other (Right upper molar dental pain. Swelling of right cheek.) Respiratory: No Symptoms Cardiac: No Symptoms Abdominal/Gastrointestinal: No Symptoms Genitourinary Symptoms: No Symptoms Musculoskeletal: No Symptoms Skin: No Symptoms Neurological: No Symptoms Psychological: No Symptoms Endocrine: No Symptoms Hematologic/Lymphatic: No Symptoms Immunological/Allergic: No Symptoms All Other Systems: Reviewed and Negative - Past Medical History Pertinent Past Medical History: Yes Neurological History: No Pertinent History ENT History: No Pertinent History Cardiac History: High Cholesterol, Hypertension Respiratory History: Other Endocrine Medical History: No Pertinent History Musculoskeletal History: No Pertinent History GI Medical History: Diverticulitis History: No Pertinent History Psycho-Social History: Anxiety, Depression Male Reproductive Disorders: No Pertinent History - Past Surgical History Past Surgical History: No - Social History Smoking Status: Current every day smoker How long have you smoked: 30 yrs Exposure to second hand smoke: Yes Drug Use: none Patient Lives Alone: No - Nursing Vital Signs Nursing Vital Signs: Initial Vital Signs Temperature 98.3 F 05/28/23 15:08 Pulse Rate 107 H 05/28/23 15:08 Respiratory Rate 14 05/28/23 15:08 Blood Pressure 139/94 05/28/23 15:08 O2 Sat by Pulse Oximetry 98 05/28/23 15:08 Pain Scale Pain Intensity 7 - Physical Exam General Appearance: no apparent distress, alert, anxiety, obese Eye Exam: PERRL/EOMI, eyes nml inspection Ears, Nose, Throat Exam: hearing grossly normal (Patient's dentition is grossly poor with generalized infection present. No palpable upper molar abscess.), normal pharynx Neck Exam: normal inspection, non-tender, supple, full range of motion, other (No evidence of stridor.) Respiratory Exam: normal breath sounds, lungs clear, airway intact, No chest tenderness, No respiratory distress, No stridor Cardiovascular/Chest Exam: normal heart sounds, regular rate/rhythm Abdominal/Gastrointestinal Exam: soft, normal bowel sounds, No tenderness Rectal Exam: not done Extremity Exam: non-tender, normal range of motion, normal inspection, no calf tenderness, no pedal edema, pelvis stable Neurologic Exam: alert, oriented x 3, 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 There is redness and induration present.) SpO2 Interpretation: normal O2 Delivery: Room Air - Course Nursing assessment & vital signs reviewed: Yes EKG Interpreted by Me: RATE (97), Sinus Rhythm, NORMAL AXIS, NORMAL INTERVALS, NORMAL QRS, NORMAL ST-T, Other (No acute ischemic changes on today's twelve-lead EKG) Ordered Tests: Active Orders 24 hr Category Date Time Status EKG-ER Only STAT Care 05/28/23 15:16 Active IV Insertion STAT Care 05/28/23 15:16 Active Pulse Oximetry (ED) STAT Care 05/28/23 15:16 Active CHEST 1 VIEW (PORTABLE) Stat Exams 05/28/23 15:16 Completed BLOOD CULTURE Stat Lab 05/28/23 16:00 Received CBC W DIFF Stat Lab 05/28/23 15:16 Completed CMP Stat Lab 05/28/23 15:08 Completed D-DIMER QUANTITATIVE Stat Lab 05/28/23 15:08 Completed NT PRO BNPII Stat Lab 05/28/23 15:08 Completed TROPONIN Q4H Lab 05/28/23 15:08 Completed TROPONIN Q4H Lab 05/28/23 19:30 Ordered TROPONIN Q4H Lab 05/28/23 23:30 Ordered Medication Summary Generic Name Dose Route Start Last Admin Trade Name Freq PRN Reason Stop Dose Admin Sodium Chloride 1,000 mls @ 50 mls/hr 05/28/23 15:30 05/28/23 15:22 Sodium Chloride 0.9% 1000 Ml IV 06/27/23 15:29 50 mls/hr .Q20H HIRAM Administration Discontinued Medications Generic Name Dose Route Start Last Admin Trade Name Freq PRN Reason Stop Dose Admin Ceftriaxone Sodium/Dextrose 1 g in 50 mls @ 100 mls/hr 05/28/23 16:40 05/28/23 16:50 Rocephin 1 Gm-D5w 50 Ml Bag IV 05/28/23 17:09 100 ml/hr STAT STA 100 mls/hr Administration Ceftriaxone Sodium/Dextrose Confirm 05/28/23 16:47 Rocephin 1 Gm-D5w 50 Ml Bag Administered 05/28/23 16:48 Dose 1 g in 50 mls @ ud IV .STK-MED ONE Oxycodone/Acetaminophen 1 tab 05/28/23 16:40 05/28/23 16:50 Oxycodone Hcl/Apap 5 Mg/325 Mg Tablet PO 05/28/23 16:41 1 tab STAT STA Administration Oxycodone/Acetaminophen Confirm 05/28/23 16:47 Oxycodone Hcl/Apap 5 Mg/325 Mg Tablet Administered 05/28/23 16:48 Dose 1 tab .ROUTE .STK-MED ONE Lab/Rad Data: Laboratory Result Diagrams 05/28/23 15:16 05/28/23 15:08 Laboratory Results 05/28/23 05/28/23 05/28/23 Range/Units 15:16 15:08 15:08 WBC 8.1 (4.0-10.5) x10^3/uL RBC 5.21 (4.1-5.6) x10^6/uL Hgb 15.6 (12.5-18.0) g/dL Hct 46.9 (42-50) % MCV 90.0 (78-100) fL MCH 29.9 (26-32) pg MCHC 33.3 (32-36) g/dL RDW 13.2 (11.5-14.0) % Plt Count 189 (150-450) x10^3/uL MPV 10.0 (7.5-11.0) fL Gran % 72.9 H (36.0-66.0) % Immature Gran % (Auto) 0.4 (0.00-0.4) % Nucleat RBC Rel Count 0.0 (0.00-0.1) % Eos # (Auto) 0.14 (0-0.5) x10^3/uL Immature Gran # (Auto) 0.03 (0.00-0.03) x10^3u/L Absolute Lymphs (auto) 1.21 (1.0-4.6) x10^3/uL Absolute Monos (auto) 0.79 (0.0-1.3) x10^3/uL Absolute Nucleated RBC 0.00 (0.00-0.01) x10^3u/L Lymphocytes % 15.0 L (24.0-44.0) % Monocytes % 9.8 (0.0-12.0) % Eosinophils % 1.7 (0.00-5.0) % Basophils % 0.2 (0.0-0.4) % Absolute Granulocytes 5.88 (1.4-6.9) x10^3/uL Basophils # 0.02 (0-0.4) x10^3/uL D-Dimer 0.62 H* (0.0-0.50) mg/L Sodium (137-145) mmol/L Potassium (3.5-5.1) mmol/L Chloride (98-107) mmol/L Carbon Dioxide (22-30) mmol/L Anion Gap (5-15) MEQ/L BUN (9-20) mg/dL Creatinine (0.66-1.25) mg/dL Estimated GFR ML/MIN Glucose (74-106) mg/dL Calcium (8.4-10.2) mg/dL Total Bilirubin (0.2-1.3) mg/dL AST (17-59) U/L ALT (0-50) U/L Alkaline Phosphatase (38-126) U/L Troponin I < 0.012 (0.000-0.034) ng/mL NT-Pro-B Natriuret Pep (<300) pg/mL Serum Total Protein (6.3-8.2) g/dL Albumin (3.5-5.0) g/dL 05/28/23 Range/Units 15:08 WBC (4.0-10.5) x10^3/uL RBC (4.1-5.6) x10^6/uL Hgb (12.5-18.0) g/dL Hct (42-50) % MCV (78-100) fL MCH (26-32) pg MCHC (32-36) g/dL RDW (11.5-14.0) % Plt Count (150-450) x10^3/uL MPV (7.5-11.0) fL Gran % (36.0-66.0) % Immature Gran % (Auto) (0.00-0.4) % Nucleat RBC Rel Count (0.00-0.1) % Eos # (Auto) (0-0.5) x10^3/uL Immature Gran # (Auto) (0.00-0.03) x10^3u/L Absolute Lymphs (auto) (1.0-4.6) x10^3/uL Absolute Monos (auto) (0.0-1.3) x10^3/uL Absolute Nucleated RBC (0.00-0.01) x10^3u/L Lymphocytes % (24.0-44.0) % Monocytes % (0.0-12.0) % Eosinophils % (0.00-5.0) % Basophils % (0.0-0.4) % Absolute Granulocytes (1.4-6.9) x10^3/uL Basophils # (0-0.4) x10^3/uL D-Dimer (0.0-0.50) mg/L Sodium 139 (137-145) mmol/L Potassium 4.1 (3.5-5.1) mmol/L Chloride 101 (98-107) mmol/L Carbon Dioxide 25 (22-30) mmol/L Anion Gap 16.5 H (5-15) MEQ/L BUN 20 (9-20) mg/dL Creatinine 1.01 (0.66-1.25) mg/dL Estimated GFR > 60.0 ML/MIN Glucose 126 H (74-106) mg/dL Calcium 9.4 (8.4-10.2) mg/dL Total Bilirubin 0.60 (0.2-1.3) mg/dL AST 43 (17-59) U/L ALT 61 H (0-50) U/L Alkaline Phosphatase 76 (38-126) U/L Troponin I (0.000-0.034) ng/mL NT-Pro-B Natriuret Pep < 20.0 (<300) pg/mL Serum Total Protein 7.5 (6.3-8.2) g/dL Albumin 4.6 (3.5-5.0) g/dL - Progress Progress: improved, re-examined Air Movement: good Progress Note: 05/28/23 16:49 This patient's medical issue is 1 of moderate complexity. The level of complexity in the work-up performed is based on review of the patient's past medical history, review of the patient's medication list, review the patient's drug allergy list, history of present illness and physical findings on examination. The work-up in this patient includes placement of intravenous line, CBC, CMP, D-dimer level, troponin level, and chest x-ray. Patient's primary issue appears to be the right upper molar infection and swelling of his right cheek. However, patient is very anxious and I think this is contributing to the mild shortness of breath he is experiencing. The patient desires not to use steroids. He states that he has had Keflex in the past to his recollection there was no issue taking that medication. We we will provide the patient with intravenous Rocephin and oral oxycodone/acetamino phen here in the emergency department. Patient will continue using clindamycin and we will add Keflex antibiotic to that regimen. Patient will take Percocet 5/320 5 in the morning and evening and in the midday he will take ibuprofen 600 mg orally. He is to not use Tylenol while on the Percocet. Patient will return to the emergency department if he is not improving in the next 24 to 48 hours. 05/28/23 17:11 I do not feel the elevated D-dimer of 0.62 is indicative of a pulmonary embolus. It is more likely secondary to infection that is present. Blood Culture(s) Obtained: No Antibiotics given: Yes Counseled pt/family regarding: lab results, diagnosis, need for follow-up, rad results, smoking cessation Medical Desision Making - Independent Historian Additional History obtained from: Family - Diagnostic Testing Diagnostic test were ordered, analyzed, and reviewed by me: Yes Radiological Interpretation: Interpreted by me, Reviewed by me, Teleradiologist Report - Risk of complications The pt has a mod risk of morbidity or mortality based on: Need for prescription drug management - Departure Departure Disposition: Home Clinical Impression: Dental infection Condition: Stable Critical Care Time: No Referrals: ERI LOZA MD [Primary Care Provider] - Follow up/PCP as directed Additional Instructions: Take all your antibiotics as prescribed. Take Percocet 5/325 1 in the morning and 1 in the evening. Take ibuprofen 600 mg orally midday with food. Continue your other medication as prescribed. Follow-up in our emergency department if symptoms worsen despite treatment, or persist beyond the next 24 to 48 hours. Prescriptions: Oxycodone HCl/Acetaminophen [Percocet 5-325 mg Tablet] 1 each PO Q12H PRN PRN #6 tablet MDD 2 PRN Reason: Moderate To Severe Pain Cephalexin Mh 500 mg [Keflex 500 mg] 500 mg PO TID #21 cap
[2023-05-28 15:19] VITALS: TEMP 98.3
[2023-05-28] MEDS ORDERED: Sodium Chloride 0.9% 1000 ML 1,000 ML ONE (15:21)
[2023-05-28] MEDS ORDERED: Sodium Chloride 0.9% 1000 ML 1,000 ML IV SCH (15:30)
--- NOTE | 2023-05-28 16:03 | XRAY ---
Indication: Short of breath. Comparison: February 07, 2023 Portable chest again demonstrates normal heart and lungs with incidental small left hilar calcified node. Bony thorax intact. No new/acute findings.
[2023-05-28 16:14] LABS: Absolute Neutrophil Ct (ANC) 5.88 x10^3/uL (1.4-6.9); BASOPHIL % 0.2 % (0.0-0.4); Basophil (Absolute #) 0.02 x10^3/uL (0-0.4); Eosinophil % 1.7 % (0.00-5.0); Eosinophil (Absolute #) 0.14 x10^3/uL (0-0.5); Hematocrit 46.9 % (42-50); Hemoglobin 15.6 g/dL (12.5-18.0); IMMATURE GRAN # 0.03 x10^3u/L (0.00-0.03); IMMATURE GRAN % 0.4 % (0.00-0.4); Lymphocyte (Absolute #) 1.21 x10^3/uL (1.0-4.6); Mean Corpuscular Hemoglobin 29.9 pg (26-32); Mean Corpuscular Hgb Concent. 33.3 g/dL (32-36); Monocyte (Absolute #) 0.79 x10^3/uL (0.0-1.3); Monocytes % 9.8 % (0.0-12.0); Neutrophil % 72.9 % (36.0-66.0); Platelet Count 189 x10^3/uL (150-450); Red Blood Count 5.21 x10^6/uL (4.1-5.6); Red Cell Distribution Width 13.2 % (11.5-14.0); White Blood Count 8.1 x10^3/uL (4.0-10.5)
[2023-05-28] MEDS ORDERED: ROCEPHIN 1 Gm-D5w 50 ml Bag** 1 G/50 ML IVPB IV STA (16:40)
[2023-05-28] MEDS ORDERED: PERCOCET TABLET 5/325MG PO STA (16:40)
[2023-05-28] MEDS ORDERED: PERCOCET TABLET 5/325MG ONE (16:47)
[2023-05-28] MEDS ORDERED: ROCEPHIN 1 Gm-D5w 50 ml Bag** 1 G/50 ML IVPB IV ONE (16:47)
[2023-05-28 17:01] LABS: ALBUMIN 4.6 g/dL (3.5-5.0); ALKALINE PHOSPHATASE 76 U/L (38-126); ANION GAP 16.5 MEQ/L (5-15); BLOOD UREA NITROGEN 20 mg/dL (9-20); CHLORIDE 101 mmol/L (98-107); Calcium 9.4 mg/dL (8.4-10.2); Carbon Dioxide 25 mmol/L (22-30); Creatinine 1 1.01 mg/dL (0.66-1.25); EST GLOMERULAR FILTRATION RATE > 60.0 ML/MIN; Glucose 126 mg/dL (74-106); NT PRO BNPII < 20.0 pg/mL (<300); Potassium 4.1 mmol/L (3.5-5.1); SGOT/AST 43 U/L (17-59); SGPT/ALT 61 U/L (0-50); SODIUM 139 mmol/L (137-145); Total Protein 7.5 g/dL (6.3-8.2)
[2023-05-28 17:36] VITALS: BP 131/92; PULSE 84; RESP 18; O2SAT 98
== END 2023-05-28 17:49 | disposition home or self-care (01) ==
LOC: ED 15:05
DX: K04.7 Periapical abscess without sinus (principal); K08.89 Other specified disorders of teeth and supporting structures; R06.02 Shortness of breath; E78.5 Hyperlipidemia, unspecified; I10 Essential (primary) hypertension; Z79.891 Long term (current) use of opiate analgesic; Z79.899 Other long term (current) drug therapy; Z28.310 Unvaccinated for COVID-19; Z72.0 Tobacco use
CPT/HCPCS: 36000; 36415; 71045; 80053; 83880; 84484; 85025; 85379; 87040; 93005; 94760; 96365; 99284; J0696; A9270-GY

== ENCOUNTER 2023-05-30 18:20 | Emergency (ER) | payer MEDICAID ==
--- NOTE | 2023-05-30 18:26 | ERPHSYRPT ---
- History of Present Illness Time Seen by Provider: 05/30/23 18:26 Source: patient, family Exam Limitations: no limitations Physician History: pt is here due to continuing dental swelling after dental abscess and is now on 2 AB clinda and keflex. He is swallowing OK in ER and has no anterior cervial or mouth floor tenderness Timing/Duration: gradual onset Severity: moderate ENT Location: dental Prearrival Treatment: prescription meds Modifying Factors: Improves With: nothing Allergies/Adverse Reactions: Penicillins Allergy (Verified 05/30/23 18:36) Home Medications: Lisinopril 20 mg [Zestril 20 MG] 1 tab PO BID 02/14/22 [History] Rosuvastatin Calcium [Crestor] 1 tab PO DAILY 02/14/22 [History] Amlodipine Besylate 5 mg [Norvasc 5 mg] 10 mg PO DAILY 01/17/23 [History] Famotidine 20 mg PO BID 01/17/23 [History] Metoprolol Succinate 25 mg Xl* [Toprol-Xl 25MG Tablets] 25 mg PO DAILY 04/16/23 [History] Hx Tetanus, Diphtheria Vaccination/Date Given: Yes Hx Influenza Vaccination/Date Given: No Hx Pneumococcal Vaccination/Date Given: No Travel Risk - Vaccine Status Have you recieved a Covid-19 vaccination: No - Past Medical History Pertinent Past Medical History: Yes Neurological History: No Pertinent History ENT History: No Pertinent History Cardiac History: High Cholesterol, Hypertension Respiratory History: Other Endocrine Medical History: No Pertinent History Musculoskeletal History: No Pertinent History GI Medical History: Diverticulitis History: No Pertinent History Psycho-Social History: Anxiety, Depression Male Reproductive Disorders: No Pertinent History - Past Surgical History Past Surgical History: No - Social History Smoking Status: Current every day smoker How long have you smoked: 30 yrs Exposure to second hand smoke: Yes Drug Use: none Patient Lives Alone: No - Nursing Vital Signs Nursing Vital Signs: Initial Vital Signs Temperature 98.9 F 05/30/23 18:38 Pulse Rate 101 H 05/30/23 18:38 Respiratory Rate 18 05/30/23 18:38 Blood Pressure 150/92 05/30/23 18:38 O2 Sat by Pulse Oximetry 96 05/30/23 18:38 Pain Scale Pain Intensity 0 Ordered Tests: Active Orders 24 hr Category Date Time Status EKG-ER Only STAT Care 05/30/23 19:04 Active CHEST WITH CONTRAST [CT] Stat Exams 05/30/23 19:13 Completed FACIAL BONES WO CONTRAST [CT] Stat Exams 05/30/23 18:50 Completed CBC W DIFF Stat Lab 05/30/23 19:25 Completed CMP Stat Lab 05/30/23 19:25 Completed POCT GLUCOSE Stat Lab 05/30/23 18:56 Completed TROPONIN Stat Lab 05/30/23 19:25 Completed Medication Summary Discontinued Medications Generic Name Dose Route Start Last Admin Trade Name Kimberly PRN Reason Stop Dose Admin Lorazepam 1 mg 05/30/23 19:17 05/30/23 19:24 Lorazepam 1 Mg Tablet PO 05/30/23 19:18 1 mg STAT ONE Administration Lorazepam Confirm 05/30/23 19:23 Lorazepam 1 Mg Tablet Administered 05/30/23 19:24 Dose 1 mg .ROUTE .Postling-MED ONE Lab/Rad Data: Laboratory Result Diagrams 05/30/23 19:25 05/30/23 19:25 Laboratory Results 05/30/23 05/30/23 05/30/23 Range/Units 19:25 19:25 19:25 WBC 9.9 (4.0-10.5) x10^3/uL RBC 5.16 (4.1-5.6) x10^6/uL Hgb 15.2 (12.5-18.0) g/dL Hct 45.5 (42-50) % MCV 88.2 (78-100) fL MCH 29.5 (26-32) pg MCHC 33.4 (32-36) g/dL RDW 13.1 (11.5-14.0) % Plt Count 248 (150-450) x10^3/uL MPV 9.2 (7.5-11.0) fL Gran % 73.1 H (36.0-66.0) % Immature Gran % (Auto) 0.7 H (0.00-0.4) % Nucleat RBC Rel Count 0.0 (0.00-0.1) % Eos # (Auto) 0.15 (0-0.5) x10^3/uL Immature Gran # (Auto) 0.07 H (0.00-0.03) x10^3u/L Absolute Lymphs (auto) 1.44 (1.0-4.6) x10^3/uL Absolute Monos (auto) 0.96 (0.0-1.3) x10^3/uL Absolute Nucleated RBC 0.00 (0.00-0.01) x10^3u/L Lymphocytes % 14.6 L (24.0-44.0) % Monocytes % 9.7 (0.0-12.0) % Eosinophils % 1.5 (0.00-5.0) % Basophils % 0.4 (0.0-0.4) % Absolute Granulocytes 7.22 H (1.4-6.9) x10^3/uL Basophils # 0.04 (0-0.4) x10^3/uL Sodium 137 (137-145) mmol/L Potassium 4.3 (3.5-5.1) mmol/L Chloride 101 (98-107) mmol/L Carbon Dioxide 23 (22-30) mmol/L Anion Gap 17.5 H (5-15) MEQ/L BUN 21 H (9-20) mg/dL Creatinine 0.94 (0.66-1.25) mg/dL Estimated GFR > 60.0 ML/MIN Glucose 119 H (74-106) mg/dL POC Glucometer (74 to 106) mg/dL Calcium 9.6 (8.4-10.2) mg/dL Total Bilirubin 0.60 (0.2-1.3) mg/dL AST 38 (17-59) U/L ALT 55 H (0-50) U/L Alkaline Phosphatase 80 (38-126) U/L Troponin I < 0.012 (0.000-0.034) ng/mL Serum Total Protein 7.1 (6.3-8.2) g/dL Albumin 4.5 (3.5-5.0) g/dL 05/30/23 Range/Units 18:56 WBC (4.0-10.5) x10^3/uL RBC (4.1-5.6) x10^6/uL Hgb (12.5-18.0) g/dL Hct (42-50) % MCV (78-100) fL MCH (26-32) pg MCHC (32-36) g/dL RDW (11.5-14.0) % Plt Count (150-450) x10^3/uL MPV (7.5-11.0) fL Gran % (36.0-66.0) % Immature Gran % (Auto) (0.00-0.4) % Nucleat RBC Rel Count (0.00-0.1) % Eos # (Auto) (0-0.5) x10^3/uL Immature Gran # (Auto) (0.00-0.03) x10^3u/L Absolute Lymphs (auto) (1.0-4.6) x10^3/uL Absolute Monos (auto) (0.0-1.3) x10^3/uL Absolute Nucleated RBC (0.00-0.01) x10^3u/L Lymphocytes % (24.0-44.0) % Monocytes % (0.0-12.0) % Eosinophils % (0.00-5.0) % Basophils % (0.0-0.4) % Absolute Granulocytes (1.4-6.9) x10^3/uL Basophils # (0-0.4) x10^3/uL Sodium (137-145) mmol/L Potassium (3.5-5.1) mmol/L Chloride (98-107) mmol/L Carbon Dioxide (22-30) mmol/L Anion Gap (5-15) MEQ/L BUN (9-20) mg/dL Creatinine (0.66-1.25) mg/dL Estimated GFR ML/MIN Glucose (74-106) mg/dL POC Glucometer 137 H (74 to 106) mg/dL Calcium (8.4-10.2) mg/dL Total Bilirubin (0.2-1.3) mg/dL AST (17-59) U/L ALT (0-50) U/L Alkaline Phosphatase (38-126) U/L Troponin I (0.000-0.034) ng/mL Serum Total Protein (6.3-8.2) g/dL Albumin (3.5-5.0) g/dL - Progress Progress: improved, re-examined Progress Note: 05/30/23 19:15 pt now has CP and concerned over recent elevated D dimer and wants CT angio we discussed risks/benefits and he agrees and and we will proceed 05/30/23 23:27 discussed results with pt and and that even though EKG appears normal , and Trop is still in norm range and no calcium is on the CT he still could have undetected CAD with risk of sudden and needs further w/u to exclude. They understand and prefer outpt w/u to further eval in ER or admission for obs tonight and they have the capacity to make this choice. Counseled pt/family regarding: lab results, diagnosis, need for follow-up, rad results Medical Desision Making - Independent Historian Additional History obtained from: Spouse - Discussion of managment Reviewed:: Test results, Need for additional workup Agreed on:: Treatment plan, need for follow-up - Diagnostic Testing Diagnostic test were ordered, analyzed, and reviewed by me: Yes Radiological Interpretation: Teleradiologist Report - Risk of complications The pt has a mod risk of morbidity or mortality based on: Need for prescription drug management The pt has a high risk of morbidity or mortality based on: Decision regarding hospitilization or escalation of hosp level of care - Departure Departure Disposition: Home Clinical Impression: Dental abscess, chest pain- resolved, Dental infection Condition: Good Critical Care Time: No Referrals: ERI LOZA MD [Primary Care Provider] - Follow up/PCP as directed Instructions: Tooth Abscess (DC), Chest Pain Additional Instructions: followup with your dentist to have definitive treatment for your dental abscess es. ALthough the cardiac enzymes and EKG and CT are negative , there still could be undetected heart disease - so it is important to followup with your to arrange a more complete workup and to return meantime if any concerning symptoms recur. continue to f/u for left breast cyst with your s
[2023-05-30 18:49] VITALS: TEMP 98.9
[2023-05-30] MEDS ORDERED: Ativan 1 MG PO ONE (19:17)
[2023-05-30] MEDS ORDERED: Ativan 1 MG ONE (19:23)
[2023-05-30 19:33] LABS: Absolute Neutrophil Ct (ANC) 7.22 x10^3/uL (1.4-6.9); BASOPHIL % 0.4 % (0.0-0.4); Basophil (Absolute #) 0.04 x10^3/uL (0-0.4); Eosinophil % 1.5 % (0.00-5.0); Eosinophil (Absolute #) 0.15 x10^3/uL (0-0.5); Hematocrit 45.5 % (42-50); Hemoglobin 15.2 g/dL (12.5-18.0); IMMATURE GRAN # 0.07 x10^3u/L (0.00-0.03); IMMATURE GRAN % 0.7 % (0.00-0.4); Lymphocyte (Absolute #) 1.44 x10^3/uL (1.0-4.6); Lymphocytes % 14.6 % (24.0-44.0); Mean Cell Volume 88.2 fL (78-100); Mean Corpuscular Hemoglobin 29.5 pg (26-32); Mean Corpuscular Hgb Concent. 33.4 g/dL (32-36); Mean Platelet Volume 9.2 fL (7.5-11.0); Monocyte (Absolute #) 0.96 x10^3/uL (0.0-1.3); Monocytes % 9.7 % (0.0-12.0); Neutrophil % 73.1 % (36.0-66.0); Platelet Count 248 x10^3/uL (150-450); Red Blood Count 5.16 x10^6/uL (4.1-5.6); Red Cell Distribution Width 13.1 % (11.5-14.0); White Blood Count 9.9 x10^3/uL (4.0-10.5)
[2023-05-30 19:49] LABS: ALBUMIN 4.5 g/dL (3.5-5.0); ALKALINE PHOSPHATASE 80 U/L (38-126); ANION GAP 17.5 MEQ/L (5-15); BLOOD UREA NITROGEN 21 mg/dL (9-20); CHLORIDE 101 mmol/L (98-107); Calcium 9.6 mg/dL (8.4-10.2); Carbon Dioxide 23 mmol/L (22-30); Creatinine 1 0.94 mg/dL (0.66-1.25); EST GLOMERULAR FILTRATION RATE > 60.0 ML/MIN; Glucose 119 mg/dL (74-106); Potassium 4.3 mmol/L (3.5-5.1); SGOT/AST 38 U/L (17-59); SGPT/ALT 55 U/L (0-50); SODIUM 137 mmol/L (137-145); Total Protein 7.1 g/dL (6.3-8.2)
--- NOTE | 2023-05-30 21:02 | XRAY ---
CLINICAL HISTORY:chest pain with hx elevated d dimer COMPARISON:None. TECHNIQUE:Contiguous 3.[address] images of the chest were acquired with IV contrast. 80 cc of Isovue 370 was given to the patient. Coronal and sagittal reconstructions were obtained. FINDINGS: The pulmonary vessels are normally opacified. No thrombosis was identified in the major or segmental pulmonary arteries. Normal opacification of the aorta is noted, and no aneurysmal dilatation, stenosis, or dissection is seen. No thrombosis. The scanned pulmonary parenchyma shows no definite consolidative lesions. No soft tissue nodularity was seen on either side. No free or encysted pleural effusion. Heart size is normal, and there is no pericardial effusion. No pathologically enlarged mediastinal, hilar, or axillary lymph node was identified. An incidental note is made of 30 x 23 mm cystic lesion with a density of 10-12 HU in the upper outer quadrant of the left breast. The scanned upper abdomen shows diffuse fatty infiltration in the visualized liver parenchyma. IMPRESSION: No acute abnormality was seen in the chest. The pulmonary aretry and aorta show normal opacification. No thrombosis was identified. Incidental finding of a cystic lesion ( 30 x 23 mm ) in the upper outer quadrant of the left breast requires US correlation. Electronically Signed by: Andre Dickey MD. (05/30/2023 20:02:00 [employer])
--- NOTE | 2023-05-30 21:27 | XRAY ---
CLINICAL HISTORY:dental infection with numbness COMPARISON:None. TECHNIQUE:Axial images of the face have been acquired without contrast. Coronal and sagittal reformatted images have also been sent. FINDINGS: Cortical discontinuities are seen in both the right and left nasal bones, suggestive of fracture of indeterminate age. There is nasal septum deviation to the right and left nasal spur is noted. The rest of the fascial bones show normal cortical margins. No lytic or sclerotic bony lesion was identified. Both temporo-mandibular joints show normal articular congruence, and no dislocation. All salivary glands show normal morphology in this unenhanced study. No soft tissue abnormality was noted. An incidental note is made of right maxillary sinusitis and deviation of the nasal septum to the right. A left nasal spur is noted. Right, luke bullosa is also noted. IMPRESSION: 1. No lytic or sclerotic bony lesion was identified. 2. Cortical discontinuities in both the right and left nasal bones are suggestive of fracture of indeterminate age. Clinical correlation is suggested. 3. Nasal septum deviation to the right and left nasal spur. 4. Right maxillary sinusitis. Electronically Signed by: Andre Dickey MD. (05/30/2023 20:24:51 RELATIONS LIAISON)
[2023-05-30] MEDS ORDERED: ROCEPHIN 1 Gm-D5w 50 ml Bag** 1 G/50 ML IVPB IV STA (23:26)
[2023-05-30] MEDS ORDERED: ROCEPHIN 1 Gm-D5w 50 ml Bag** 1 G/50 ML IVPB IV ONE (23:38)
[2023-05-31 00:17] VITALS: BP 136/82; PULSE 82; RESP 18; O2SAT 95
== END 2023-05-31 00:19 | disposition home or self-care (01) ==
LOC: ED 18:20
DX: K04.7 Periapical abscess without sinus (principal); R07.9 Chest pain, unspecified; E78.5 Hyperlipidemia, unspecified; I10 Essential (primary) hypertension; Z79.899 Other long term (current) drug therapy; Z28.310 Unvaccinated for COVID-19; Z72.0 Tobacco use
CPT/HCPCS: 36000; 36415; 70486; 71260; 80053; 82947; 84484; 85025; 93005; 96365; 99284; J0696; A9270-GY

== ENCOUNTER 2023-06-09 09:01 | Emergency (ER) | payer MEDICAID, OTHER ==
[2023-06-09 09:06] VITALS: BP 160/95; PULSE 90; RESP 18; TEMP 98.2; O2SAT 97
--- NOTE | 2023-06-09 09:07 | ERPHSYRPT ---
- History of Present Illness Time Seen by Provider: 06/09/23 09:06 Source: patient, EMS Exam Limitations: no limitations Physician History: This is a 48-year-old white male patient who was brought into the emergency department by ambulance/paramedics with complaint of left jaw/cheek numbness that occurred over the last 2 to 3 days. Approximately 10 days ago he underwent a right upper molar tooth extraction of 3 teeth. Patient is a very anxious individual. He has a history of tobacco abuse. He has had negative cardiac work-up x2 and had a negative CTA of the chest performed within the last 10 days. He is currently on Keflex antibiotics. Patient has history of hypertension and hyperlipidemia. Patient is primarily concerned about possible stroke. Timing/Duration: gradual onset Severity: mild Modifying Factors: Improves With: nothing Associated Symptoms: denies symptoms Allergies/Adverse Reactions: Penicillins Allergy (Verified 06/09/23 09:02) Home Medications: Lisinopril 20 mg [Zestril 20 MG] 1 tab PO BID 02/14/22 [History] Rosuvastatin Calcium [Crestor] 1 tab PO DAILY 02/14/22 [History] Amlodipine Besylate 5 mg [Norvasc 5 mg] 10 mg PO DAILY 01/17/23 [History] Famotidine 20 mg PO BID 01/17/23 [History] Metoprolol Succinate 25 mg Xl* [Toprol-Xl 25MG Tablets] 25 mg PO DAILY 04/16/23 [History] Hx Tetanus, Diphtheria Vaccination/Date Given: Yes Hx Influenza Vaccination/Date Given: No Hx Pneumococcal Vaccination/Date Given: No Travel Risk - International Travel Have you traveled outside of the country in past 3 weeks: No - Coronavirus Screening Are you exhibiting any of the following symptoms?: No Close contact with a COVID-19 positive Pt in past 14-21 Days: No - Vaccine Status Have you recieved a Covid-19 vaccination: No - Review of Systems Constitutional: No Symptoms Eyes: No Symptoms Ears, Nose, & Throat: Other Respiratory: No Symptoms (Left facial numbness) Cardiac: No Symptoms Abdominal/Gastrointestinal: No Symptoms Genitourinary Symptoms: No Symptoms Musculoskeletal: No Symptoms Skin: No Symptoms Neurological: Other (Left facial numbness) Psychological: Anxiety Endocrine: No Symptoms Hematologic/Lymphatic: No Symptoms Immunological/Allergic: No Symptoms All Other Systems: Reviewed and Negative - Past Medical History Pertinent Past Medical History: Yes Neurological History: No Pertinent History ENT History: No Pertinent History Cardiac History: High Cholesterol, Hypertension Respiratory History: Other Endocrine Medical History: No Pertinent History Musculoskeletal History: No Pertinent History GI Medical History: Diverticulitis History: No Pertinent History Psycho-Social History: Anxiety, Depression Male Reproductive Disorders: No Pertinent History - Past Surgical History Past Surgical History: No - Social History Smoking Status: Current every day smoker How long have you smoked: 30 yrs Exposure to second hand smoke: Yes Drug Use: none Patient Lives Alone: No - Nursing Vital Signs Nursing Vital Signs: Initial Vital Signs Temperature 98.2 F 06/09/23 09:05 Pulse Rate 90 06/09/23 09:05 Respiratory Rate 18 06/09/23 09:05 Blood Pressure 160/95 06/09/23 09:05 O2 Sat by Pulse Oximetry 97 06/09/23 09:05 Pain Scale Pain Intensity 0 - Physical Exam General Appearance: no apparent distress, alert, anxiety Eye Exam: bilateral eye: normal inspection, PERRL, EOMI Ear Exam: bilateral ear: auricle normal Nasal Exam: normal inspection Throat Exam: normal, pharynx normal Neck Exam: normal inspection, non-tender, supple, full range of motion, trachea midline Cardiovascular/Respiratory Exam: chest non-tender, normal breath sounds, regular rate/rhythm, heart sounds normal, no respiratory distress Abdominal Exam: non-tender Neurologic Exam: alert, oriented x 3, cooperative, dining room helper II-XII nml as tested, normal mood/affect, nml cerebellar function, sensation nml, No intoxicated appearance, No depressed mood/affect, No facial droop, No slurred speech Skin Exam: normal color, warm, dry SpO2 Interpretation: normal SpO2: 97 O2 Delivery: Room Air - Course Nursing assessment & vital signs reviewed: Yes EKG Interpreted by Me: RATE (83), Sinus Rhythm, NORMAL AXIS, NORMAL INTERVALS, NORMAL QRS, NORMAL ST-T, Other (No acute ischemic changes on today's twelve-lead EKG) Ordered Tests: Active Orders 24 hr Category Date Time Status FACIAL BONES WO CONTRAST [CT] Stat Exams 06/09/23 09:25 Taken HEAD WITHOUT CONTRAST [CT] Stat Exams 06/09/23 09:25 Taken - Progress Progress: unchanged, re-examined Progress Note: 06/09/23 09:30 This patient's medical issue is 1 of low to moderate complexity. The level of complexity in the work-up performed is based on review of the patient's past medical history, review of the patient's medication list, review the patient's drug allergy list, history of present illness and physical findings on examination. The work-up in this patient includes a CT scan of the head without contrast and a CT scan of the facial bones without contrast. 06/09/23 10:[address] scan of the facial bones. There is no osseous destructive process. There are no suspicious lesions. CT scan of the head without contrast is a normal CT head without contrast Counseled pt/family regarding: diagnosis, need for follow-up, rad results Medical Desision Making - Diagnostic Testing Diagnostic test were ordered, analyzed, and reviewed by me: Yes Radiological Interpretation: Reviewed by me, Teleradiologist Report - Risk of complications Low Risk: Low risk of morbidity from additional dx testing or treatment - Departure Departure Disposition: Home Clinical Impression: Left facial numbness Condition: Stable Critical Care Time: No Referrals: ERI LOZA MD [Primary Care Provider] - Follow up/PCP as directed Additional Instructions: Continue all of your medications as prescribed. Call your primary care provider today to make arrangements for follow-up appointment for further evaluation management.
--- NOTE | 2023-06-09 13:54 | XRAY ---
Indication: Left facial numbness. Multiple contiguous axial images obtained through the head without contrast. Comparison: July 21, 2022 Normal appearing brain parenchyma, ventricles, and bony calvarium. Mastoid air cells are clear. CT facial bones reported separately. Impression: Continued normal CT head without contrast exam.
--- NOTE | 2023-06-09 13:54 | XRAY ---
Indication: Left facial numbness following tooth extraction. Multiple contiguous axial images obtained through the facial bones. Sagittal and coronal reformatted images obtained. Comparison: May 30, 2023 Stable old nasal bone fracture and multiple left dental caries. Previous right upper dental caries have been extracted. No acute fracture, suspicious bony lesions, or osseous destructive process. TMJ bilaterally symmetric. Grossly stable moderate mucosal thickening right maxillary sinus and minimal nasal septal deviation. Remaining paranasal sinuses and nasal passages are clear. Visualized noncontrasted soft tissues including orbits are unremarkable. Impression: 1. Status post extraction right dental caries. Stable multiple left dental caries. 2. Stable right maxillary sinus disease, nasal septal deviation, and old nasal bone fracture.
== END 2023-06-09 11:00 | disposition home or self-care (01) ==
LOC: ED 09:01
DX: R20.0 Anesthesia of skin (principal); I10 Essential (primary) hypertension; E78.5 Hyperlipidemia, unspecified; Z79.899 Other long term (current) drug therapy; Z28.310 Unvaccinated for COVID-19; Z72.0 Tobacco use
CPT/HCPCS: 70450; 70486; 99282

== ENCOUNTER 2023-06-15 10:55 | Observation (INO) | payer MEDICAID ==
[2023-06-15] MEDS ORDERED: Sodium Chloride 0.9% 1000 ML 1,000 ML IV SCH (11:30)
--- NOTE | 2023-06-15 11:40 | ERPHSYRPT ---
- History of Present Illness Time Seen by Provider: 06/15/23 11:35 Source: patient Exam Limitations: no limitations Patient Subjective Stated Complaint: pt states that he has this weird feeling on the left side of his mouth. pt states that he feels like it is swollen Triage Nursing Assessment: pt ambulated into the er; pt is axo x4; c/o swelling to left side of mouth; pt denies pain; multiple caries present; multiple broken teeth present in mouth; no foul odor present; mucus membranes pink and moist; vitals wnl; skin PDW; no respiratory distress present Physician History: Patient is a 48-year-old male presents the emergency department for evaluation of left facial paresthesias, dysphagia and sensation of fullness to his left face. 2 days prior patient felt an abnormal sensation of his left lower leg. Patient concerned as his mother and uncle had strokes in their 40s. No trauma. No fever. No nausea vomiting diaphoresis. No objective weakness. Symptoms started yesterday. Symptoms have been ongoing without improvement. No specific worsening or improving factors. Patient denies a history of the same. Patient admits to dental problems. Patient states he had dental work done on the right side of his face. However at that time he had pain. Patient does not have pain involving his visit today. Patient is otherwise healthy. He voices no other complaints or concerns at this time. Portions of this note were created with voice recognition technology. There may be grammatical, spelling, punctuation or sound alike errors Timing/Duration: yesterday Severity: moderate Modifying Factors: Improves With: nothing Associated Symptoms: denies symptoms Allergies/Adverse Reactions: Penicillins Allergy (Verified 06/15/23 11:06) Home Medications: Lisinopril 20 mg [Zestril 20 MG] 40 tab PO DAILY 02/14/22 [History] Rosuvastatin Calcium [Crestor] 1 tab PO DAILY 02/14/22 [History] Amlodipine Besylate 5 mg [Norvasc 5 mg] 10 mg PO DAILY 01/17/23 [History] Famotidine 20 mg PO BID 01/17/23 [History] Metoprolol Succinate 25 mg Xl* [Toprol-Xl 25MG Tablets] 25 mg PO DAILY 04/16/23 [History] Hx Tetanus, Diphtheria Vaccination/Date Given: Yes Hx Influenza Vaccination/Date Given: No Hx Pneumococcal Vaccination/Date Given: No Travel Risk - International Travel Have you traveled outside of the country in past 3 weeks: No - Coronavirus Screening Are you exhibiting any of the following symptoms?: No Close contact with a COVID-19 positive Pt in past 14-21 Days: No - Vaccine Status Have you recieved a Covid-19 vaccination: No - Review of Systems Constitutional: No Symptoms, No Fever, No Chills Eyes: No Symptoms Ears, Nose, & Throat: No Symptoms Respiratory: No Symptoms, No Cough, No Dyspnea Cardiac: No Symptoms, No Chest Pain, No Edema, No Syncope Abdominal/Gastrointestinal: No Symptoms, No Abdominal Pain, No Nausea, No Vomiting, No Diarrhea Genitourinary Symptoms: No Symptoms, No Dysuria Musculoskeletal: No Symptoms, No Back Pain, No Neck Pain Skin: No Symptoms, No Rash Neurological: No Symptoms, No Dizziness, No Focal Weakness, No Sensory Changes Psychological: No Symptoms Endocrine: No Symptoms Hematologic/Lymphatic: No Symptoms Immunological/Allergic: No Symptoms All Other Systems: Reviewed and Negative - Past Medical History Pertinent Past Medical History: Yes Neurological History: No Pertinent History ENT History: No Pertinent History Cardiac History: High Cholesterol, Hypertension Respiratory History: Other Endocrine Medical History: No Pertinent History Musculoskeletal History: No Pertinent History GI Medical History: Diverticulitis History: No Pertinent History Psycho-Social History: Anxiety, Depression Male Reproductive Disorders: No Pertinent History - Past Surgical History Past Surgical History: No Other Surgical History: tooth extraction - Social History Smoking Status: Current every day smoker How long have you smoked: 30 yrs Exposure to second hand smoke: Yes Drug Use: none Patient Lives Alone: No - Nursing Vital Signs Nursing Vital Signs: Initial Vital Signs Pulse Rate 97 H 06/15/23 11:05 Respiratory Rate 15 06/15/23 11:05 Blood Pressure 144/94 06/15/23 11:05 O2 Sat by Pulse Oximetry 95 06/15/23 11:05 Pain Scale Pain Intensity 0 - Physical Exam General Appearance: no apparent distress, alert Eye Exam: PERRL/EOMI, eyes nml inspection Ears, Nose, Throat Exam: normal ENT inspection, TMs normal, pharynx normal, moist mucous membranes Neck Exam: normal inspection, non-tender, supple, full range of motion Respiratory Exam: normal breath sounds, lungs clear, airway intact, No re spiratory distress Cardiovascular Exam: regular rate/rhythm, normal heart sounds, normal peripheral pulses Gastrointestinal/Abdomen Exam: soft, normal bowel sounds, No tenderness, No mass Back Exam: normal inspection, normal range of motion, No CVA tenderness, No vertebral tenderness Extremity Exam: normal inspection, normal range of motion, pelvis stable Neurologic Exam: alert, oriented x 3, cooperative, normal mood/affect, nml cerebellar function, nml station & gait, sensation nml, No motor deficits Skin Exam: normal color, warm, dry, No rash Lymphatic Exam: No adenopathy SpO2 Interpretation: normal SpO2: 98 O2 Delivery: Room Air - Course Nursing assessment & vital signs reviewed: Yes EKG Interpreted by Me: RATE (93), Sinus Rhythm, NORMAL AXIS, NORMAL INTERVALS - CT Exams Head CT Interpretation: Tele-radiologist Report (Normal CTA head) Soft Tissue Neck CT Interpretation: Tele-radiologist Report (CTA neck with contrast was normal. Enlarged [place] tonsils. Spine arthritis observed) Other CT Interpretation: Tele-radiologist Report (Normal CT head without contrast) Ordered Tests: Active Orders 24 hr Category Date Time Status Bed Spring Maker STAT Care 06/15/23 11:31 Active EKG-ER Only STAT Care 06/15/23 11:30 Active IV Insertion STAT Care 06/15/23 11:30 Active Pulse Oximetry (ED) STAT Care 06/15/23 11:[address] ANGIOGRAPHY NECK [CT] Stat Exams 06/15/23 13:34 Completed CTA HEAD W AND/OR WO CONTRAST [CT] Stat Exams 06/15/23 13:33 Completed HEAD WITHOUT CONTRAST [CT] Stat Exams 06/15/23 11:32 Completed CBC W DIFF Stat Lab 06/15/23 11:55 Completed CMP Stat Lab 06/15/23 11:55 Completed NT PRO BNPII Stat Lab 06/15/23 11:55 Completed TROPONIN Q4H Lab 06/15/23 11:55 Completed TROPONIN Q4H Lab 06/15/23 15:12 Received TROPONIN Q4H Lab 06/15/23 19:45 Ordered Transfer Order Routine Transfer 06/15/23 Ordered Medication Summary Generic Name Dose Route Start Last Admin Trade Name Freq PRN Reason Stop Dose Admin Sodium Chloride 1,000 mls @ 100 mls/hr 06/15/23 11:30 06/15/23 11:50 Sodium Chloride 0.9% 1000 Ml IV 11/23/23 11:29 100 mls/hr .Q10H HIRAM Administration Discontinued Medications Generic Name Dose Route Start Last Admin Trade Name Kimberly PRN Reason Stop Dose Admin Aspirin 324 mg 06/15/23 15:09 06/15/23 15:11 Aspirin 81 Mg Tab.Chew PO 06/15/23 15:10 324 mg STAT ONE Administration Aspirin Confirm 06/15/23 15:11 Aspirin 81 Mg Tab.Chew Administered 06/15/23 15:12 Dose 324 mg .ROUTE .STK-MED ONE Lab/Rad Data: Laboratory Result Diagrams 06/15/23 11:55 06/15/23 11:55 Laboratory Results 06/15/23 06/15/23 06/15/23 Range/Units 11:55 11:55 11:55 WBC (4.0-10.5) x10^3/uL RBC (4.1-5.6) x10^6/uL Hgb (12.5-18.0) g/dL Hct (42-50) % MCV (78-100) fL MCH (26-32) pg MCHC (32-36) g/dL RDW (11.5-14.0) % Plt Count (150-450) x10^3/uL MPV (7.5-11.0) fL Gran % (36.0-66.0) % Immature Gran % (Auto) (0.00-0.4) % Nucleat RBC Rel Count (0.00-0.1) % Eos # (Auto) (0-0.5) x10^3/uL Immature Gran # (Auto) (0.00-0.03) x10^3u/L Absolute Lymphs (auto) (1.0-4.6) x10^3/uL Absolute Monos (auto) (0.0-1.3) x10^3/uL Absolute Nucleated RBC (0.00-0.01) x10^3u/L Lymphocytes % (24.0-44.0) % Monocytes % (0.0-12.0) % Eosinophils % (0.00-5.0) % Basophils % (0.0-0.4) % Absolute Granulocytes (1.4-6.9) x10^3/uL Basophils # (0-0.4) x10^3/uL Sodium 134 L (137-145) mmol/L Potassium 4.5 (3.5-5.1) mmol/L Chloride 103 (98-107) mmol/L Carbon Dioxide 20 L (22-30) mmol/L Anion Gap 16.6 H (5-15) MEQ/L BUN 14 (9-20) mg/dL Creatinine 1.03 (0.66-1.25) mg/dL Estimated GFR > 60.0 ML/MIN Glucose 148 H (74-106) mg/dL Calcium 9.5 (8.4-10.2) mg/dL Total Bilirubin 0.70 (0.2-1.3) mg/dL AST 59 (17-59) U/L ALT 99 H (0-50) U/L Alkaline Phosphatase 81 (38-126) U/L Troponin I < 0.012 (0.000-0.034) ng/mL NT-Pro-B Natriuret Pep < 20.0 (<300) pg/mL Serum Total Protein 7.7 (6.3-8.2) g/dL Albumin 4.7 (3.5-5.0) g/dL 06/15/23 Range/Units 11:55 WBC 10.5 (4.0-10.5) x10^3/uL RBC 5.26 (4.1-5.6) x10^6/uL Hgb 15.8 (12.5-18.0) g/dL Hct 46.5 (42-50) % MCV 88.4 (78-100) fL MCH 30.0 (26-32) pg MCHC 34.0 (32-36) g/dL RDW 13.5 (11.5-14.0) % Plt Count 258 (150-450) x10^3/uL MPV 9.4 (7.5-11.0) fL Gran % 81.6 H (36.0-66.0) % Immature Gran % (Auto) 0.6 H (0.00-0.4) % Nucleat RBC Rel Count 0.0 (0.00-0.1) % Eos # (Auto) 0.07 (0-0.5) x10^3/uL Immature Gran # (Auto) 0.06 H (0.00-0.03) x10^3u/L Absolute Lymphs (auto) 1.16 (1.0-4.6) x10^3/uL Absolute Monos (auto) 0.60 (0.0-1.3) x10^3/uL Absolute Nucleated RBC 0.00 (0.00-0.01) x10^3u/L Lymphocytes % 11.1 L (24.0-44.0) % Monocytes % 5.7 (0.0-12.0) % Eosinophils % 0.7 (0.00-5.0) % Basophils % 0.3 (0.0-0.4) % Absolute Granulocytes 8.57 H (1.4-6.9) x10^3/uL Basophils # 0.03 (0-0.4) x10^3/uL Sodium (137-145) mmol/L Potassium (3.5-5.1) mmol/L Chloride (98-107) mmol/L Carbon Dioxide (22-30) mmol/L Anion Gap (5-15) MEQ/L BUN (9-20) mg/dL Creatinine (0.66-1.25) mg/dL Estimated GFR ML/MIN Glucose (74-106) mg/dL Calcium (8.4-10.2) mg/dL Total Bilirubin (0.2-1.3) mg/dL AST (17-59) U/L ALT (0-50) U/L Alkaline Phosphatase (38-126) U/L Troponin I (0.000-0.034) ng/mL NT-Pro-B Natriuret Pep (<300) pg/mL Serum Total Protein (6.3-8.2) g/dL Albumin (3.5-5.0) g/dL - Progress Progress: improved Progress Note: Patient is a 48-year-old male presents to our ED with a 1 day history of left fa cial paresthesias difficulty swallowing. Patient advised that his mother and uncle both had strokes at age 40. Couple days prior patient voiced that he was experiencing some abnormal sensations in his left leg. Physical exam nonremarkable. EKG normal sinus rhythm. CBC CMP essentially nonremarkable. Initial troponin negative. Telemetry neuro consult advised a CTA head and neck. Both were completed and both are nonremarkable. Per teleneurologist patient to be admitted for MRI brain. Case discussed with Dr. Gautam who excepts admission to observation. Dr. Gautam excepted admission at 3:11 PM. Plan of care discussed with patient. He agreed to admission to [facility] for further evaluation and treatment. Portions of this note were created with voice recognition technology. There may be grammatical, spelling, punctuation or sound alike errors Complexity of problem addressed is moderate acute complicated No critical care time Complexity of data reviewed and analyzed is extensive. Test ordered test reviewed. The results of the laboratory and imaging studies were analyzed. Clinical correlation made between the findings and history and physical exa mination. Management was discussed with neurologist who advised MRI. Case discussed with hospitalist Dr. Gautam who excepts admission to observation. Risk of complication and or risk of morbidity/mortality of patient management is high. Patient will require hospitalization for further evaluation and treatment. Vital stable. Time spent admit patient is approximately 15 minutes. Plan of care established for shared decision making. Patient voices no other complaints or concerns at this time. Portions of this note were created with voice recognition technology. There may be grammatical, spelling, punctuation or sound alike errors 06/15/23 15:25 [address] with DrCathy: Sally (Telemetry neuro consultation. Please see consultation note for details) Counseled pt/family regarding: lab results, diagnosis, need for follow-up - Departure Departure Disposition: Observation Clinical Impression: Enlargement of left palatine tonsil, Enlargement of right palatine tonsil, Cerv ical spine arthritis, TIA (transient ischemic attack), Dysphagia, Facial paresthesia Condition: Stable Critical Care Time: No Referrals: ERI LOZA MD [Primary Care Provider] - Follow up/PCP as directed
[2023-06-15 12:03] LABS: Absolute Neutrophil Ct (ANC) 8.57 x10^3/uL (1.4-6.9); BASOPHIL % 0.3 % (0.0-0.4); Basophil (Absolute #) 0.03 x10^3/uL (0-0.4); Eosinophil % 0.7 % (0.00-5.0); Eosinophil (Absolute #) 0.07 x10^3/uL (0-0.5); Hematocrit 46.5 % (42-50); Hemoglobin 15.8 g/dL (12.5-18.0); IMMATURE GRAN # 0.06 x10^3u/L (0.00-0.03); IMMATURE GRAN % 0.6 % (0.00-0.4); Lymphocyte (Absolute #) 1.16 x10^3/uL (1.0-4.6); Lymphocytes % 11.1 % (24.0-44.0); Mean Cell Volume 88.4 fL (78-100); Mean Platelet Volume 9.4 fL (7.5-11.0); Monocytes % 5.7 % (0.0-12.0); Neutrophil % 81.6 % (36.0-66.0); Platelet Count 258 x10^3/uL (150-450); Red Blood Count 5.26 x10^6/uL (4.1-5.6); Red Cell Distribution Width 13.5 % (11.5-14.0); White Blood Count 10.5 x10^3/uL (4.0-10.5)
--- NOTE | 2023-06-15 12:09 | XRAY ---
Indication: Left-sided weakness. Paresthesia. Multiple contiguous axial images obtained through the head without contrast. Comparison: June 09, 2023 Normal appearing brain parenchyma, ventricles, and bony calvarium. Visualized paranasal sinuses and mastoid air cells are clear. Impression: Continued normal CT head without contrast exam.
[2023-06-15 12:19] LABS: ALBUMIN 4.7 g/dL (3.5-5.0); ALKALINE PHOSPHATASE 81 U/L (38-126); ANION GAP 16.6 MEQ/L (5-15); BLOOD UREA NITROGEN 14 mg/dL (9-20); CHLORIDE 103 mmol/L (98-107); Calcium 9.5 mg/dL (8.4-10.2); Carbon Dioxide 20 mmol/L (22-30); Creatinine 1 1.03 mg/dL (0.66-1.25); EST GLOMERULAR FILTRATION RATE > 60.0 ML/MIN; Glucose 148 mg/dL (74-106); Potassium 4.5 mmol/L (3.5-5.1); SGOT/AST 59 U/L (17-59); SGPT/ALT 99 U/L (0-50); SODIUM 134 mmol/L (137-145); Total Protein 7.7 g/dL (6.3-8.2)
--- NOTE | 2023-06-15 14:38 | XRAY ---
Indication: Dysphagia. LVO. Conventional contrast enhanced CTA neck performed using 100 cc Isovue 370 contrast. 2-D sagittal and coronal reformatted images obtained. Additional 3-D reformatted images obtained using a separate workstation. Comparison: July 21, 2022 Visualized aortic arch again normal in course and caliber with widely patent branch right brachiocephalic, left common carotid, and left subclavian arteries. Left and right common carotid, carotid bulb, internal carotid, and external carotid arteries remain normal in CTA appearance. Vertebral arteries are bilaterally symmetric and widely patent again with left slightly larger in caliber. Thyroid gland enhances homogeneously. Again prominent palatine tonsils narrows the oropharynx. Remaining supra-and infracolic airway widely patent. Visualized osseous structures intact again with minimal/mild multilevel cervical degenerative changes. Lung apices remain clear. Impression: Continued normal CTA neck with contrast exam. Again incidental enlarged palatine tonsils and multilevel cervical degenerative changes.
--- NOTE | 2023-06-15 14:42 | XRAY ---
Indication: Dysphagia. LVO. Conventional contrast enhanced CTA head performed using 100 cc Isovue 370 contrast. 2-D sagittal and coronal reformatted images obtained. Additional 3-D reformatted images obtained using a separate workstation. Comparison: July 21, 2022. Distal internal carotid arteries again widely patent bilaterally. Normal carotid terminus with normal branching A1 and M1 segments bilaterally. More distal anterior cerebral and middle cerebral arteries again normal in CTA appearance bilaterally. Posterior circulation again demonstrates normal CTA appearance to the basilar, left/right posterior cerebral, left/right superior cerebellar, and left/right anterior inferior cerebellar arteries. Venous drainage/sinuses remain unremarkable. No abnormal enhancing intra or extra-axial mass. Impression: Continued normal CTA head with contrast exam.
[2023-06-15] MEDS ORDERED: BABY ASPIRIN 81 MG CHEW PO ONE (15:09)
[2023-06-15] MEDS ORDERED: BABY ASPIRIN 81 MG CHEW ONE (15:11)
--- NOTE | 2023-06-15 15:58 | PCM.HP ---
History of Present Illness - Chief Complaint Chief Complaint: TIA, dysphagia, left facial paresthesia History of Present Illness: is a 48 year old male with PMHX of daily smoker, hyperlipidemia, HTN, Diverticulitis, anxiety, depression. He presented the emergency department for evaluation of left facial paresthesias, dysphagia and sensation of fullness to his left face. 2 days prior patient felt an abnormal sensation of his left lower leg. Patient concerned as his mother and uncle had strokes in their 40s. No trauma. No fever. No nausea vomiting diaphoresis. No objective weakness. Symptoms started yesterday. Symptoms have been ongoing without improvement. No specific worsening or improving factors. Patient denies a history of the same. Patient admits to dental problems. Patient states he had dental work done on the right side of his face 1 week ago and was prescribed Keflex. However at that time he had pain. Patient does not have pain involving his visit today. Patient is otherwise healthy. He voices no other complaints or concerns at this time. - Review of Systems Constitutional: No Fever, No Chills Eyes: No Symptoms Ears, Nose, & Throat: No Symptoms Respiratory: No Cough, No Short Of Breath Cardiac: No Chest Pain, No Edema, No Syncope Abdominal/Gastrointestinal: No Abdominal Pain, No Nausea, No Vomiting, No Diarrhea Genitourinary Symptoms: No Dysuria Musculoskeletal: No Back Pain, No Neck Pain Skin: No Rash Neurological: Parasthesia (left side of face), No Dizziness, No Focal Weakness, No Sensory Changes Psychological: No Symptoms Endocrine: No Symptoms Hematologic/Lymphatic: No Symptoms Immunological/Allergic: No Symptoms Medications & Allergies Home Medications: Home Medication List Lisinopril 20 mg [Zestril 20 MG] 40 tab PO DAILY 02/14/22 [History Confirmed 06/15/23] Rosuvastatin Calcium [Crestor] 1 tab PO DAILY 02/14/22 [History Confirmed 06/15/23] Amlodipine Besylate 5 mg [Norvasc 5 mg] 10 mg PO DAILY 01/17/23 [History Confirmed 06/15/23] Famotidine 20 mg PO BID 01/17/23 [History Confirmed 06/15/23] EPINEPHrine [Epipen 2-Anshul] 0.3 mg IM DAILY PRN PRN #1 packet 04/16/23 [Rx Confirmed 06/15/23] Metoprolol Succinate 25 mg Xl* [Toprol-Xl 25MG Tablets] 25 mg PO DAILY 04/16/23 [History Confirmed 06/15/23] Cephalexin Mh 500 mg [Keflex 500 mg] 500 mg PO TID #21 cap 05/28/23 [Rx Confirmed 06/15/23] Allergies/Adverse Reactions: Allergies Allergy/AdvReac Type Severity Reaction Status Date / Time Penicillins Allergy Verified 06/15/23 11:06 - Past Medical History Past Medical History: Yes Neurological History: No Pertinent History ENT History: No Pertinent History Cardiac History: High Cholesterol, Hypertension Respiratory History: Other Endocrine Medical History: No Pertinent History Musculoskelatal History: No Pertinent History GI Medical History: Diverticulitis History: No Pertinent History Pyscho-Social History: Anxiety, Depression Male Reproductive Disorders: No Pertinent History - Past Surgical History Past Surgical History: No Other Surgical History: tooth extraction - Social History Smoking Status: Current every day smoker How long have you smoked: 30 yrs Exposure to second hand smoke: Yes Alcohol: None Drug Use: none - Physical Exam Vital Signs: Vital Signs - 24 hr Temp Pulse Resp BP BP Pulse Ox 06/15/23 15:29 98 06/15/23 15:09 105 H 17 135/88 96 06/15/23 14:00 80 18 123/85 96 06/15/23 13:30 75 17 140/88 06/15/23 13:00 88 17 132/88 95 06/15/23 12:30 86 18 119/96 95 06/15/23 12:06 92 H 18 119/86 95 06/15/23 11:33 98 06/15/23 11:08 98.4 F 100 H 18 144/94 98 06/15/23 11:05 97 H 15 144/94 95 General Appearance: no apparent distress, alert Neurologic Exam: alert, oriented x 3, cooperative, normal mood/affect, nml cerebellar function, nml station & gait, sensation nml, No motor deficits Eye Exam: PERRL/EOMI, eyes nml inspection Ears, Nose, Throat Exam: normal ENT inspection, TMs normal, pharynx normal, moist mucous membranes Neck Exam: normal inspection, non-tender, supple, full range of motion Respiratory Exam: normal breath sounds, lungs clear, No respiratory distress Cardiovascular Exam: regular rate/rhythm, normal heart sounds, normal peripheral pulses Gastrointestinal/Abdomen Exam: soft, normal bowel sounds, No tenderness, No mass Back Exam: normal inspection, normal range of motion, No CVA tenderness, No vertebral tenderness Extremity Exam: normal inspection, normal range of motion, pelvis stable Skin Exam: normal color, warm, dry, No rash Lymphatic Exam: No adenopathy Results - Labs Lab/Micro Results: Lab Results-Last 24 Hours 06/15/23 06/15/23 06/15/23 Range/Units 11:55 11:55 11:55 WBC 10.5 (4.0-10.5) x10^3/uL RBC 5.26 (4.1-5.6) x10^6/uL Hgb 15.8 (12.5-18.0) g/dL Hct 46.5 (42-50) % MCV 88.4 (78-100) fL MCH 30.0 (26-32) pg MCHC 34.0 (32-36) g/dL RDW 13.5 (11.5-14.0) % Plt Count 258 (150-450) x10^3/uL MPV 9.4 (7.5-11.0) fL Gran % 81.6 H (36.0-66.0) % Immature Gran % (Auto) 0.6 H (0.00-0.4) % Nucleat RBC Rel Count 0.0 (0.00-0.1) % Eos # (Auto) 0.07 (0-0.5) x10^3/uL Immature Gran # (Auto) 0.06 H (0.00-0.03) x10^3u/L Absolute Lymphs (auto) 1.16 (1.0-4.6) x10^3/uL Absolute Monos (auto) 0.60 (0.0-1.3) x10^3/uL Absolute Nucleated RBC 0.00 (0.00-0.01) x10^3u/L Lymphocytes % 11.1 L (24.0-44.0) % Monocytes % 5.7 (0.0-12.0) % Eosinophils % 0.7 (0.00-5.0) % Basophils % 0.3 (0.0-0.4) % Absolute Granulocytes 8.57 H (1.4-6.9) x10^3/uL Basophils # 0.03 (0-0.4) x10^3/uL Sodium 134 L (137-145) mmol/L Potassium 4.5 (3.5-5.1) mmol/L Chloride 103 (98-107) mmol/L Carbon Dioxide 20 L (22-30) mmol/L Anion Gap 16.6 H (5-15) MEQ/L BUN 14 (9-20) mg/dL Creatinine 1.03 (0.66-1.25) mg/dL Estimated GFR > 60.0 ML/MIN Glucose 148 H (74-106) mg/dL Calcium 9.5 (8.4-10.2) mg/dL Total Bilirubin 0.70 (0.2-1.3) mg/dL AST 59 (17-59) U/L ALT 99 H (0-50) U/L Alkaline Phosphatase 81 (38-126) U/L Troponin I < 0.012 (0.000-0.034) ng/mL NT-Pro-B Natriuret Pep (<300) pg/mL Serum Total Protein 7.7 (6.3-8.2) g/dL Albumin 4.7 (3.5-5.0) g/dL 06/15/23 Range/Units 11:55 WBC (4.0-10.5) x10^3/uL RBC (4.1-5.6) x10^6/uL Hgb (12.5-18.0) g/dL Hct (42-50) % MCV (78-100) fL MCH (26-32) pg MCHC (32-36) g/dL RDW (11.5-14.0) % Plt Count (150-450) x10^3/uL MPV (7.5-11.0) fL Gran % (36.0-66.0) % Immature Gran % (Auto) (0.00-0.4) % Nucleat RBC Rel Count (0.00-0.1) % Eos # (Auto) (0-0.5) x10^3/uL Immature Gran # (Auto) (0.00-0.03) x10^3u/L Absolute Lymphs (auto) (1.0-4.6) x10^3/uL Absolute Monos (auto) (0.0-1.3) x10^3/uL Absolute Nucleated RBC (0.00-0.01) x10^3u/L Lymphocytes % (24.0-44.0) % Monocytes % (0.0-12.0) % Eosinophils % (0.00-5.0) % Basophils % (0.0-0.4) % Absolute Granulocytes (1.4-6.9) x10^3/uL Basophils # (0-0.4) x10^3/uL Sodium (137-145) mmol/L Potassium (3.5-5.1) mmol/L Chloride (98-107) mmol/L Carbon Dioxide (22-30) mmol/L Anion Gap (5-15) MEQ/L BUN (9-20) mg/dL Creatinine (0.66-1.25) mg/dL Estimated GFR ML/MIN Glucose (74-106) mg/dL Calcium (8.4-10.2) mg/dL Total Bilirubin (0.2-1.3) mg/dL AST (17-59) U/L ALT (0-50) U/L Alkaline Phosphatase (38-126) U/L Troponin I (0.000-0.034) ng/mL NT-Pro-B Natriuret Pep < 20.0 (<300) pg/mL Serum Total Protein (6.3-8.2) g/dL Albumin (3.5-5.0) g/dL - Radiology Impressions Radiology Exams & Impressions: Radiology Procedures Category Date Time Status CT ANGIOGRAPHY NECK [CT] Stat Exams 06/15/23 13:34 Completed CTA HEAD W AND/OR WO CONTRAST [CT] Stat Exams 06/15/23 13:33 Completed HEAD WITHOUT CONTRAST [CT] Stat Exams 06/15/23 11:32 Completed Assessment/Plan (1) Facial paresthesia Current Visit: Yes Status: Acute Assessment & Plan: - tele neuro consult - MRI brain - Carotid duplex BL - Lipid panel - Cont statin - may need increased if MRi confirms CVA - ST/PT/OT eval - ASA - Echo - neuro checks - CTA negative - CT angiography: Continued normal CTA neck with contrast exam. Again incidental enlarged palatine tonsils and multilevel cervical degenerative changes. Code(s): R20.2 - PARESTHESIA OF SKIN (2) Dysphagia Current Visit: Yes Status: Acute Assessment & Plan: - ST eval - soft diet Code(s): R13.10 - DYSPHAGIA, UNSPECIFIED (3) Smoker Current Visit: Yes Status: Acute Assessment & Plan: - advised cessation - nicotine patch Code(s): F17.200 - NICOTINE DEPENDENCE, UNSPECIFIED, UNCOMPLICATED (4) Hyperlipidemia Current Visit: Yes Status: Acute Assessment & Plan: - Cont statin- may need increased if confirmed CVA - Lipid panel in AM Code(s): E78.5 - HYPERLIPIDEMIA, UNSPECIFIED (5) HTN (hypertension) Current Visit: Yes Status: Acute Assessment & Plan: - Continue BP meds - stable VTE: SCD D/C plan- 1-2 days Code status:Full Next of Kin: Letty Martinez [phone] Code(s): I10 - ESSENTIAL (PRIMARY) HYPERTENSION
[2023-06-15] MEDS: Nicoderm CQ 21 MG TOP SCH (17:30)
[2023-06-15] MEDS: Pepcid 20 MG PO SCH (21:49)
[2023-06-15] MEDS ORDERED: NORVASC 5 MG PO SCH (22:00)
[2023-06-16 05:28] LABS: Hematocrit 46.7 % (42-50); Hemoglobin 15.3 g/dL (12.5-18.0); Mean Cell Volume 90.2 fL (78-100); Mean Corpuscular Hemoglobin 29.5 pg (26-32); Mean Corpuscular Hgb Concent. 32.8 g/dL (32-36); Mean Platelet Volume 9.6 fL (7.5-11.0); Platelet Count 242 x10^3/uL (150-450); Red Blood Count 5.18 x10^6/uL (4.1-5.6); Red Cell Distribution Width 13.8 % (11.5-14.0); White Blood Count 7.4 x10^3/uL (4.0-10.5)
[2023-06-16 06:12] LABS: ALBUMIN 4.1 g/dL (3.5-5.0); ALKALINE PHOSPHATASE 79 U/L (38-126); ANION GAP 14.1 MEQ/L (5-15); BLOOD UREA NITROGEN 15 mg/dL (9-20); CHLORIDE 108 mmol/L (98-107); Carbon Dioxide 21 mmol/L (22-30); Cholesterol 150 mg/dL (50-200); Creatinine 1 0.91 mg/dL (0.66-1.25); EST GLOMERULAR FILTRATION RATE > 60.0 ML/MIN; Glucose 97 mg/dL (74-106); HDL CHOLESTEROL 42 mg/dL (40-60); LDL, DIRECT 65 mg/dL (30-100); Potassium 4.4 mmol/L (3.5-5.1); Risk Ratio 3.6; SGOT/AST 52 U/L (17-59); SGPT/ALT 87 U/L (0-50); SODIUM 138 mmol/L (137-145); TRIGLYCERIDE 257 mg/dL (30-150); Total Protein 6.8 g/dL (6.3-8.2)
[2023-06-16] MEDS: Nicoderm CQ 21 MG TOP SCH (08:12)
[2023-06-16] MEDS: Pepcid 20 MG PO SCH (08:12)
[2023-06-16] MEDS ORDERED: Toprol-Xl 25MG Tablets PO SCH (10:00)
[2023-06-16] MEDS ORDERED: Zestril 20 MG PO SCH (10:00)
[2023-06-16] MEDS ORDERED: ECOTRIN 81 MG PO SCH (10:00)
[2023-06-16] MEDS ORDERED: ZOCOR 20MG PO SCH ×2 (10:00→22:00)
[2023-06-16] MEDS ORDERED: NORVASC 5 MG PO SCH ×2 (10:00→17:00)
[2023-06-16] MEDS ORDERED: VENTOLIN COMMON CANISTER IH PRN (11:34)
[2023-06-16] MEDS ORDERED: Advair Hfa 230/21 Mcg COMMON CANISTER IH SCH (12:00)
[2023-06-16] MEDS ORDERED: Spiriva 18 Mcg/Cap Inhaler IH SCH (12:00)
--- NOTE | 2023-06-16 12:24 | XRAY ---
Indication: CVA. Two-dimensional sonogram and color Doppler imaging of the carotid arteries of the neck performed. Comparison: None Examination of the right carotid circulation demonstrates widely patent common carotid and external carotid arteries. Mild eccentric soft plaquing at the level of the bulb slightly extending to the origin of the internal carotid artery. Distal internal carotid artery is markedly tortuous. PSV of the CCA is 83 cm/s. PSV of the ICA is 81 cm/s. ICA/CCA ratio is 1.0. Normal antegrade vertebral artery flow. Examination of the left carotid circulation demonstrates widely patent common carotid, internal carotid, and external carotid arteries. Carotid bulb demonstrates minimal eccentric soft plaquing. PSV of the CCA is 86 cm/s. PSV of the ICA is 87 cm/s. ICA/CCA ratio is 1.0. Normal antegrade vertebral artery flow. Impression: Minimal/mild arteriosclerotic plaquing right greater than left as detailed. Velocity measurements and ratios are negative for hemodynamically significant flow-limiting stenosis.
--- NOTE | 2023-06-16 14:36 | XRAY ---
Indication: Stroke symptoms. Left facial numbness. Normal CT head, CTA neck, and CTA head exams. Sagittal, coronal, and axial MRI brain performed without contrast using T1, T2, FLAIR, diffusion, and ADC sequences. Comparison: None Ventriculosulcal pattern appears symmetric. No acute intracranial hemorrhage, abnormal extra-axial fluid collection, or mass effect. Diffusion images are negative for restricted signal. Fourth ventricle is midline without hydrocephalus. 7/8 cranial nerve complex bilaterally symmetric. Normal flow void signal within the major intracerebral circulation. Normal-appearing craniocervical junction and sella turcica. Visualized paranasal sinuses are clear. Impression: Normal MRI brain without contrast exam.
[2023-06-16] MEDS ORDERED: TYLENOL 325 MG PO PRN (14:56)
--- NOTE | 2023-06-16 16:07 | PCM.DS ---
Discharge Summary Date of Admission: 06/15/23 15:25 Date of Discharge: 06/16/23 Admitting Physician: SHARON GRESHAM MD Consults: Consults on Case 06/15/23 15:47 Consult Neurology ROUTINE Primary Care Provider: ERI LOZA MD Allergies Allergies Penicillins Allergy (Verified 06/15/23 11:06) Hospital Summary - Hospital Course Hospital Course: 06/15/23 is a 48 year old male with PMHX of daily smoker, hyperlipidemia, HTN, Diverticulitis, anxiety, depression. He presented the emergency department for evaluation of left facial paresthesias, dysphagia and sensation of fullness to h is left face. 2 days prior patient felt an abnormal sensation of his left lower leg. Patient concerned as his mother and uncle had strokes in their 40s. No trauma. No fever. No nausea vomiting diaphoresis. No objective weakness. Symptoms started yesterday. Symptoms have been ongoing without improvement. No specific worsening or improving factors. Patient denies a history of the same. Patient admits to dental problems. Patient states he had dental work done on the right side of his face 1 week ago and was prescribed Keflex. However at that time he had pain. Patient does not have pain involving his visit today. Patient is otherwise healthy. He voices no other complaints or concerns at this time. 06/16/23 Pt sitting up in bed. MRI showed no new findings. Medications started for COPD and will continue OP. Appointments made with Pulmonology and PCP. Pt is feeling beter and wants to go home. He denies any further concerns at this time. - Vitals & Intake/Output Vital Signs: Vital Signs Temperature 97.5 F 06/16/23 12:00 Pulse Rate 75 06/16/23 12:16 Respiratory Rate 20 06/16/23 12:16 Blood Pressure 116/69 06/16/23 12:00 O2 Sat by Pulse Oximetry 96 06/16/23 12:16 Intake & Output: Intake & Output 06/14/23 06/15/23 06/16/23 06/17/23 11:59 11:59 11:59 11:59 Intake Total 880 120 Output Total 1900 Balance -1020 120 Weight 94 kg 94.6 kg 94.6 kg - Lab Result Diagrams: 06/16/23 04:35 06/16/23 04:35 Lab Results-Last 24 Hrs: Lab Results-Last 24 Hours 06/15/23 06/15/23 06/16/23 Range/Units 19:58 21:44 04:35 WBC 7.4 (4.0-10.5) x10^3/uL RBC 5.18 (4.1-5.6) x10^6/uL Hgb 15.3 (12.5-18.0) g/dL Hct 46.7 (42-50) % MCV 90.2 (78-100) fL MCH 29.5 (26-32) pg MCHC 32.8 (32-36) g/dL RDW 13.8 (11.5-14.0) % Plt Count 242 (150-450) x10^3/uL MPV 9.6 (7.5-11.0) fL Sodium (137-145) mmol/L Potassium (3.5-5.1) mmol/L Chloride (98-107) mmol/L Carbon Dioxide (22-30) mmol/L Anion Gap (5-15) MEQ/L BUN (9-20) mg/dL Creatinine (0.66-1.25) mg/dL Estimated GFR ML/MIN Glucose (74-106) mg/dL POC Glucometer 119 H (74 to 106) mg/dL Calcium (8.4-10.2) mg/dL Total Bilirubin (0.2-1.3) mg/dL AST (17-59) U/L ALT (0-50) U/L Alkaline Phosphatase (38-126) U/L Troponin I < 0.012 (0.000-0.034) ng/mL Serum Total Protein (6.3-8.2) g/dL Albumin (3.5-5.0) g/dL Triglycerides (30-150) mg/dL Cholesterol (50-200) mg/dL LDL Cholesterol (30-100) mg/dL HDL Cholesterol (40-60) mg/dL Heart Disease Risk Ratio 06/16/23 Range/Units 04:35 WBC (4.0-10.5) x10^3/uL RBC (4.1-5.6) x10^6/uL Hgb (12.5-18.0) g/dL Hct (42-50) % MCV (78-100) fL MCH (26-32) pg MCHC (32-36) g/dL RDW (11.5-14.0) % Plt Count (150-450) x10^3/uL MPV (7.5-11.0) fL Sodium 138 (137-145) mmol/L Potassium 4.4 (3.5-5.1) mmol/L Chloride 108 H (98-107) mmol/L Carbon Dioxide 21 L (22-30) mmol/L Anion Gap 14.1 (5-15) MEQ/L BUN 15 (9-20) mg/dL Creatinine 0.91 (0.66-1.25) mg/dL Estimated GFR > 60.0 ML/MIN Glucose 97 (74-106) mg/dL POC Glucometer (74 to 106) mg/dL Calcium 9.0 (8.4-10.2) mg/dL Total Bilirubin 0.70 (0.2-1.3) mg/dL AST 52 (17-59) U/L ALT 87 H (0-50) U/L Alkaline Phosphatase 79 (38-126) U/L Troponin I (0.000-0.034) ng/mL Serum Total Protein 6.8 (6.3-8.2) g/dL Albumin 4.1 (3.5-5.0) g/dL Triglycerides 257 H (30-150) mg/dL Cholesterol 150 (50-200) mg/dL LDL Cholesterol 65 (30-100) mg/dL HDL Cholesterol 42 (40-60) mg/dL Heart Disease Risk Ratio 3.6 - Radiology Exams Ordered Rad Exams-Entire Visit: Radiology Procedures Category Date Time Status CAROTID BILATERAL [US] Routine Exams 06/16/23 08:[address] ANGIOGRAPHY NECK [CT] Stat Exams 06/15/23 13:34 Completed CTA HEAD W AND/OR WO CONTRAST [CT] Stat Exams 06/15/23 13:33 Completed ECHO W/2D AND DOPPLER [US] Routine Exams 06/16/23 08:00 Taken HEAD WITHOUT CONTRAST [CT] Stat Exams 06/15/23 11:32 Completed MRI BRAIN W/O CONTRAST [MRI] Routine Exams 06/16/23 09:00 Completed - Procedures and Test Procedures and Tests throughout Hospitalization: Therapy Orders & Screens 06/15/23 15:49 PT Eval & Treat ( Order) ONCE Reason for Eval:: possible CVA Diagnosis: TIA, dysphagia, left facial paresthesia OT Eval and Treat (MD Order) ROUTINE Comment: Physician Instructions: Reason For Exam: Evaluate: Yes Treat: Yes Diagnosis: TIA, dysphagia, left facial paresthesia 06/15/23 15:50 Speech Therapy Eval & Treat [ST Eval & Treat (MD Order)] .as ordered Comment: Physician Instructions: Reason For Exam: Evaluate: Yes: CVA Treat: Yes Reason for Eval: CVA Diagnosis: TIA, dysphagia, left facial paresthesia 06/15/23 15:54 EKG ROUTINE Comment: Diagnosis: TIA, dysphagia, left facial paresthesia 06/15/23 16:19 Smoking Cessation Education ONCE Comment: Diagnosis: TIA, dysphagia, left facial paresthesia Smoking Status: Current every day smoker How long have you smoked: 30 yrs Approximately how many cigarettes per day: 1 ppd Do you dip or chew tobacco: No 06/16/23 12:06 Respiratory Therapy Assessment DAILY Comment: Diagnosis: TIA, dysphagia, left facial paresthesia Discharge Exam General Appearance: no apparent distress, alert Neurologic Exam: alert, oriented x 3, cooperative, normal mood/affect, nml cerebellar function, sensation nml, No motor deficits Eye Exam: PERRL, EOMI, eyes nml inspection Ears, Nose, Throat Exam: normal ENT inspection, pharynx normal, moist mucous membranes Neck Exam: normal inspection, non-tender, supple, full range of motion Respiratory Exam: normal breath sounds, lungs clear, No respiratory distress Cardiovascular Exam: regular rate/rhythm, normal heart sounds Gastrointestinal/Abdomen Exam: soft, No tenderness, No mass Male Genitalia Exam: deferred Rectal Exam: deferred Back Exam: normal inspection, normal range of motion, No CVA tenderness, No vertebral tenderness Extremity Exam: normal inspection, normal range of motion Skin Exam: normal color, warm, dry Final Diagnosis/Problem List - Final Discharge Diagnosis/Problem (1) Facial paresthesia Current Visit: Yes Status: Acute Assessment & Plan: - tele neuro consult - MRI brain- negative - Carotid duplex BL- reviewed - Lipid panel- increased crestor and added zetia - ST/PT/OT eval - ASA - Echo- f/u OP for results with PCP - neuro checks - CTA negative - CT angiography: Continued normal CTA neck with contrast exam. Again incidental enlarged palatine tonsils and multilevel cervical degenerative changes. Code(s): R20.2 - PARESTHESIA OF SKIN (2) Dysphagia Current Visit: Yes Status: Acute Assessment & Plan: - resolved - passed ST eval Code(s): R13.10 - DYSPHAGIA, UNSPECIFIED (3) Smoker Current Visit: Yes Status: Acute Assessment & Plan: - advised cessation - nicotine patch - Pt states is he going to quit Code(s): F17.200 - NICOTINE DEPENDENCE, UNSPECIFIED, UNCOMPLICATED (4) Hyperlipidemia Current Visit: Yes Status: Acute Assessment & Plan: - increased crestor and added zetia Code(s): E78.5 - HYPERLIPIDEMIA, UNSPECIFIED (5) HTN (hypertension) Current Visit: Yes Status: Acute Assessment & Plan: - Continue BP meds - stable Code(s): I10 - ESSENTIAL (PRIMARY) HYPERTENSION - Discharge Discharge Date: 06/16/23 Disposition: Home, Self-Care Condition: Stable Prescriptions: New Fluticasone/Salmeterol 230/21 [Advair Hfa 230/21 Mcg COMMON CANISTER*] 2 puff IH BIDRT 30 Days #1 inhaler Tiotropium [place] Inhaler [Spiriva 18 Mcg/Cap Inhaler] 1 ea IH 0700 30 Days #1 inhaler Albuterol Common Canister [Ventolin Common Canister] 2 puff IH Q4-6HPRN PRN 30 Days #1 PRN Reason: Shortness Of Breath/Wheezing Continue Lisinopril 20 mg [Zestril 20 MG] 40 tab PO DAILY Amlodipine Besylate 5 mg [Norvasc 5 mg] 10 mg PO 1700 Famotidine 20 mg PO BID Metoprolol Succinate 25 mg Xl* [Toprol-Xl 25MG Tablets] 25 mg PO DAILY EPINEPHrine [Epipen 2-Anshul] 0.3 mg IM DAILY PRN PRN #1 packet PRN Reason: Allergies Discontinued Rosuvastatin Calcium [Crestor] 1 tab PO DAILY Cephalexin Mh 500 mg [Keflex 500 mg] 500 mg PO TID #21 cap Additional Instructions: Follow up with pulmonology and PCP Follow up with: ERI LOZA MD [Primary Care Provider] -
[2023-06-16 16:57] VITALS: BP 133/81; PULSE 85; RESP 19; TEMP 98; O2SAT 94
[2023-06-16] MEDS ORDERED: Zetia 10 MG PO SCH (22:00)
--- NOTE | 2023-06-18 16:01 | ECHO ---
DATE: 06/16/2023 INDICATION: A possible cerebrovascular accident. The M-mode, 2D, and Doppler echocardiogram including color flow Doppler shows the heart rate is 90 beats/minute. The left ventricle is normal in size. There is borderline hypertrophy of the interventricular septum. The contractility of the left ventricle is normal. The ejection fraction is estimated to be 55-60%. There is evidence of possible impaired left ventricular relaxation. The right ventricle is not well visualized. There is no thrombus noted in the left ventricle. The left atrium is normal in size. The interatrial septum is intact. The right atrium is normal. The aortic valve opens well. There is no aortic regurgitation. The mitral valve is normal. The tricuspid valve is normal. The pulmonic valve is not well visualized. The aortic root is normal. There is no pericardial effusion present. IMPRESSION: 1. BORDERLINE HYPERTROPHY OF THE INTERVENTRICULAR SEPTUM. 2. NORMAL CONTRACTILITY OF THE LEFT VENTRICLE. 3. POSSIBLE IMPAIRED LEFT VENTRICULAR RELAXATION. 4. NO THROMBUS IS NOTED.
== END 2023-06-16 16:51 | disposition home or self-care (01) ==
LOC: ED 10:55 → MED SURG 15:25
PROVIDERS: ADMIT Internal Medicine; ATTEND Internal Medicine
DX: R20.2 Paresthesia of skin (principal); R13.10 Dysphagia, unspecified; R51.9 Headache, unspecified; E78.5 Hyperlipidemia, unspecified; I10 Essential (primary) hypertension; F17.210 Nicotine dependence, cigarettes, uncomplicated; Z79.899 Other long term (current) drug therapy
CPT/HCPCS: 36000; 36415; 70450; 70496; 70498; 70551; 80053; 80061; 82947; 83721; 83880; 84484; 85025; 85027; 92610; 93005; 93041; 93268; 93306; 93880; 94640; 94760; 94762; 97161; 99285; G0378; Q3014; A9270-GY

== ENCOUNTER 2023-07-09 09:36 | Emergency (ER) | payer MEDICAID ==
[2023-07-09 09:53] VITALS: TEMP 98.8; O2SAT 98
[2023-07-09 10:37] LABS: Appearance Clear (Clear); Bacteria None Seen /HPF (None Seen); Bilirubin Negative (Negative); Blood Negative (Negative); Epithelial Cells None Seen /HPF (None Seen); Glucose, Urine Negative (Negative); Hyaline Casts NONE SEEN /LPF (0-2); Ketones Negative (Negative); Leukocyte Esterase Negative (Negative); Nitrite Negative (Negative); Ph 5.5 (4.6-8.0); Protein,Urine Dip Negative (Negative); RBC 0-2 /HPF (0-5); Specific Gravity <=1.005 (1.005-1.030); Urobilinogen 0.2 mg/dL (0.2); WBC 0-2 /HPF (0-5)
--- NOTE | 2023-07-09 10:37 | ERPHSYRPT ---
- History of Present Illness Historian: patient Exam Limitations: no limitations Patient Subjective Stated Complaint: pt here for burning with urination,lower abd pain that radiates to back Triage Nursing Assessment: pt alert, walked in, resp easy, skin w/d/p.abd soft, no edema noted Physician History: 48-year-old white male with suprapubic pain for 2 days. Pain is 4 out of 10, dull/-ache, and nothing makes better or worse. He has mild dysuria and increased frequency. He denies any costovertebral angle pain but has had some mild mid lumbar pain. Patient denies nausea/vomiting/melena/hematochezia. Patient does state that he does have some loose stool due to taking Keflex for dental pain that he took from his cabinet. Refusing pain meds at this time. Timing/Duration: other (2 days) Activities at Onset: rest Quality: aching, dullness Abdominal Pain Onset Location: suprapubic Pain Radiation: back (Mid lumbar area) Severity of Pain-Max: moderate Severity of Pain-Current: moderate Modifying Factors: Improves With: nothing Associated Symptoms: back, No nausea, No testicular pain Previous symptoms: no prior history Allergies/Adverse Reactions: Penicillins Allergy (Verified 07/09/23 09:55) Home Medications: Lisinopril 20 mg [Zestril 20 MG] 40 tab PO DAILY 02/14/22 [History] Amlodipine Besylate 5 mg [Norvasc 5 mg] 10 mg PO 1700 01/17/23 [History] Famotidine 20 mg PO BID 01/17/23 [History] Metoprolol Succinate 25 mg Xl* [Toprol-Xl 25MG Tablets] 25 mg PO DAILY 04/16/23 [History] Rosuvastatin Calcium 10 mg PO HS 07/09/23 [History] Hx Tetanus, Diphtheria Vaccination/Date Given: Yes Hx Influenza Vaccination/Date Given: No Hx Pneumococcal Vaccination/Date Given: No Immunizations Up to Date: Yes Travel Risk - International Travel Have you traveled outside of the country in past 3 weeks: No - Coronavirus Screening Are you exhibiting any of the following symptoms?: No Close contact with a COVID-19 positive Pt in past 14-21 Days: No - Vaccine Status Have you recieved a Covid-19 vaccination: No - Vaccination Dates Comment: patient did not receive - Review of Systems Constitutional: No Symptoms Eyes: No Symptoms Ears, Nose, & Throat: No Symptoms Respiratory: No Symptoms Cardiac: No Symptoms Genitourinary Symptoms: No Symptoms Musculoskeletal: No Symptoms Skin: No Symptoms Neurological: No Symptoms Psychological: No Symptoms Endocrine: No Symptoms Hematologic/Lymphatic: No Symptoms Immunological/Allergic: No Symptoms - Past Medical History Pertinent Past Medical History: Yes Neurological History: No Pertinent History ENT History: No Pertinent History Cardiac History: High Cholesterol, Hypertension Respiratory History: COPD, Other Endocrine Medical History: No Pertinent History Musculoskeletal History: No Pertinent History GI Medical History: Diverticulitis History: No Pertinent History Psycho-Social History: Anxiety, Depression Male Reproductive Disorders: No Pertinent History - Past Surgical History Past Surgical History: No Neuro Surgical History: No Pertinent History Cardiac: No Pertinent History Respiratory: No Pertinent History Gastrointestinal: No Pertinent History Genitourinary: No Pertinent History Musculoskeletal: No Pertinent History Male Surgical History: No Pertinent History Other Surgical History: tooth extraction - Social History Smoking Status: Current every day smoker How long have you smoked: 30 yrs Exposure to second hand smoke: Yes Drug Use: none Patient Lives Alone: No - Nursing Vital Signs Nursing Vital Signs: Initial Vital Signs Temperature 98.8 F 07/09/23 09:51 Pulse Rate 109 H 07/09/23 09:51 Respiratory Rate 16 07/09/23 09:51 Blood Pressure 155/87 07/09/23 09:51 O2 Sat by Pulse Oximetry 98 07/09/23 09:51 Pain Scale Pain Intensity 0 Hypertensive/tachycardic - Physical Exam General Appearance: no apparent distress Eye Exam: PERRL/EOMI, eyes nml inspection Ears, Nose, Throat Exam: normal ENT inspection, TMs normal, pharynx normal, moist mucous membranes Neck Exam: normal inspection, non-tender, supple, full range of motion, No meningismus, No mass, No Brudzinski, No Kernig's, No carotid bruit Respiratory Exam: normal breath sounds, lungs clear, airway intact Cardiovascular Exam: regular rate/rhythm (Regular rate and rhythm without heaves/gallops/murmurs/rubs.) Gastrointestinal/Abdomen Exam: soft (Good bowel sounds in all 4 quadrants/mild suprapubic tenderness palpation without guarding or rebound noted) Back Exam: normal inspection, normal range of motion, No CVA tenderness, No vertebral tenderness Extremity Exam: normal inspection, normal range of motion Neurologic Exam: alert, oriented x 3, cooperative, chief cruiser II-XII nml as tested, normal mood/affect, nml cerebellar function, nml station & gait, sensation nml Skin Exam: normal color, warm, dry Lymphatic Exam: No adenopathy SpO2 Interpretation: normal SpO2: 98 O2 Delivery: Room Air - CT Exams Abdomen/Pelvis CT Interpretation: Discussed w/radiologist (Edematous left kidney with perinephric stranding productively) Ordered Tests: Active Orders 24 hr Category Date Time Status ABDOMEN AND PELVIS W/0 CONTRAS [CT] Stat Exams 07/09/23 11:10 Completed AMYLASE Stat Lab 07/09/23 11:28 Completed CBC W DIFF Stat Lab 07/09/23 11:28 Completed CMP Stat Lab 07/09/23 11:28 Completed LIPASE Stat Lab 07/09/23 11:28 Completed UA W/RFX UR CULTURE Stat Lab 07/09/23 10:16 Completed Medication Summary Discontinued Medications Generic Name Dose Route Start Last Admin Trade Name Freq PRN Reason Stop Dose Admin Ceftriaxone Sodium 1,000 mg 07/09/23 12:36 07/09/23 12:45 Ceftriaxone Sodium 1000 Mg Inj Vial IM 07/09/23 12:37 1,000 mg STAT ONE Administration Ceftriaxone Sodium Confirm 07/09/23 12:48 Ceftriaxone Sodium 1000 Mg Inj Vial Administered 07/09/23 12:49 Dose 1,000 mg .ROUTE .STK-MED ONE Lidocaine HCl Confirm 07/09/23 12:48 Lidocaine Hcl 1% 20 Ml Mdv 20 Ml Ml Administered 07/09/23 12:49 Dose 3 ml .ROUTE .STK-MED ONE Lab/Rad Data: Laboratory Result Diagrams 07/09/23 11:28 07/09/23 11:28 Laboratory Results 07/09/23 07/09/23 07/09/23 Range/Units 11:28 11:28 10:16 WBC 9.9 (4.0-10.5) x10^3/uL RBC 5.43 (4.1-5.6) x10^6/uL Hgb 16.3 (12.5-18.0) g/dL Hct 47.7 (42-50) % MCV 87.8 (78-100) fL MCH 30.0 (26-32) pg MCHC 34.2 (32-36) g/dL RDW 13.3 (11.5-14.0) % Plt Count 249 (150-450) x10^3/uL MPV 9.1 (7.5-11.0) fL Gran % 72.9 H (36.0-66.0) % Immature Gran % (Auto) 0.7 H (0.00-0.4) % Nucleat RBC Rel Count 0.0 (0.00-0.1) % Eos # (Auto) 0.14 (0-0.5) x10^3/uL Immature Gran # (Auto) 0.07 H (0.00-0.03) x10^3u/L Absolute Lymphs (auto) 1.58 (1.0-4.6) x10^3/uL Absolute Monos (auto) 0.85 (0.0-1.3) x10^3/uL Absolute Nucleated RBC 0.00 (0.00-0.01) x10^3u/L Lymphocytes % 16.0 L (24.0-44.0) % Monocytes % 8.6 (0.0-12.0) % Eosinophils % 1.4 (0.00-5.0) % Basophils % 0.4 (0.0-0.4) % Absolute Granulocytes 7.18 H (1.4-6.9) x10^3/uL Basophils # 0.04 (0-0.4) x10^3/uL Sodium 135 L (137-145) mmol/L Potassium 4.7 (3.5-5.1) mmol/L Chloride 104 (98-107) mmol/L Carbon Dioxide 22 (22-30) mmol/L Anion Gap 13.6 (5-15) MEQ/L BUN 17 (9-20) mg/dL Creatinine 0.92 (0.66-1.25) mg/dL Estimated GFR 101.3 ML/MIN Glucose 102 (74-106) mg/dL Calcium 9.9 (8.4-10.2) mg/dL Total Bilirubin 0.60 (0.2-1.3) mg/dL AST 38 (17-59) U/L ALT 92 H (0-50) U/L Alkaline Phosphatase 70 (38-126) U/L Serum Total Protein 7.8 (6.3-8.2) g/dL Albumin 4.8 (3.5-5.0) g/dL Amylase 66 (30-110) U/L Lipase 77 (23-300) U/L Urine Color Yellow (Yellow) Urine Appearance Clear (Clear) Urine pH 5.5 (4.6-8.0) Ur Specific [place] <=1.005 (1.005-1.030) Urine Protein Negative (Negative) Urine Glucose (UA) Negative (Negative) mg/dL Urine Ketones Negative (Negative) Urine Blood Negative (Negative) Urine Nitrite Negative (Negative) Urine Bilirubin Negative (Negative) Urine Urobilinogen 0.2 (0.2) mg/dL Ur Leukocyte Esterase Negative (Negative) U Hyaline Cast (Auto) NONE SEEN (0-2) /LPF Urine Microscopic RBC 0-2 (0-5) /HPF Urine Microscopic WBC 0-2 (0-5) /HPF Ur Epithelial Cells None Seen (None Seen) /HPF Urine Bacteria None Seen (None Seen) /HPF Urine Culture Reflexed NO (NO) - Progress Progress Note: 07/09/23 17:08 Nursing note and vital signs reviewed. No food or housing insecurities noted. All lab results reviewed and shared with patient. CT results reviewed and shared with patient. 07/09/23 17:08 Patient most likely has a mild pyelonephritis on the left side. 1 g IM Rocephin was given. Patient started on Bactrim DS 1 tablet divided p.o. twice daily for 1 week. 07/09/23 17:09 Patient also given hydrocodone prescription. Patient advised to use a stool softener with the hydrocodone. He refused pain meds during his entire stay. Patient advised to follow-up with his family MD and to return to the ER for increasing pain or temperature greater 100.5. Counseled pt/family regarding: lab results, diagnosis, need for follow-up, rad results Medical Desision Making - Diagnostic Testing Diagnostic test were ordered, analyzed, and reviewed by me: Yes Radiological Interpretation: Reviewed by me - Risk of complications The pt has a mod risk of morbidity or mortality based on: Need for prescription drug management - Departure Departure Disposition: Home Clinical Impression: Pyelonephritis Condition: Stable Critical Care Time: No Referrals: ERI LOZA MD [Primary Care Provider] - Follow up/PCP as directed Instructions: Severe Abdominal Pain, Adult (DC), Kidney Infection (DC) Additional Instructions: Pain meds as needed. Please take a stool softener with pain meds. Start Bactrim twice a day for 7 days. Follow-up with your family MD early next week as needed. Return to ER for increasing pain or temperature greater 100.5. Prescriptions: Hydrocodone/Acetaminophen [Hydrocodone-Acetamin 5-325 mg] 1 each PO Q4HPRN PRN #6 tablet MDD 4 tabs PRN Reason: Pain Smz/Tmp Ds Tablet [Bactrim Ds Tablet] 1 tab PO Q12H 7 Days #14 tablet
[2023-07-09 10:39] LABS: ADD URINE CULTURE? NO (NO)
[2023-07-09 11:30] LABS: Absolute Neutrophil Ct (ANC) 7.18 x10^3/uL (1.4-6.9); BASOPHIL % 0.4 % (0.0-0.4); Basophil (Absolute #) 0.04 x10^3/uL (0-0.4); Eosinophil % 1.4 % (0.00-5.0); Eosinophil (Absolute #) 0.14 x10^3/uL (0-0.5); Hematocrit 47.7 % (42-50); Hemoglobin 16.3 g/dL (12.5-18.0); IMMATURE GRAN # 0.07 x10^3u/L (0.00-0.03); IMMATURE GRAN % 0.7 % (0.00-0.4); Lymphocyte (Absolute #) 1.58 x10^3/uL (1.0-4.6); Mean Cell Volume 87.8 fL (78-100); Mean Corpuscular Hgb Concent. 34.2 g/dL (32-36); Mean Platelet Volume 9.1 fL (7.5-11.0); Monocyte (Absolute #) 0.85 x10^3/uL (0.0-1.3); Monocytes % 8.6 % (0.0-12.0); Neutrophil % 72.9 % (36.0-66.0); Platelet Count 249 x10^3/uL (150-450); Red Blood Count 5.43 x10^6/uL (4.1-5.6); Red Cell Distribution Width 13.3 % (11.5-14.0); White Blood Count 9.9 x10^3/uL (4.0-10.5)
[2023-07-09 11:45] LABS: ALBUMIN 4.8 g/dL (3.5-5.0); ANION GAP 13.6 MEQ/L (5-15); BILIRUBIN,TOTAL 0.6 mg/dL (0.2-1.3); Calcium 9.9 mg/dL (8.4-10.2); Creatinine 1 0.92 mg/dL (0.66-1.25); EST GLOMERULAR FILTRATION RATE 101.3 ML/MIN; Potassium 4.7 mmol/L (3.5-5.1); Total Protein 7.8 g/dL (6.3-8.2)
--- NOTE | 2023-07-09 12:30 | XRAY ---
Indication: Suprapubic pain. UTI. Multiple contiguous axial images obtained through the abdomen and pelvis without contrast. Comparison: None Lung bases demonstrates minimal dependent atelectasis. Heart not enlarged. Noncontrasted stomach and bowel loops appear nonobstructed. Appendix not visualized. Left kidney is edematous with minimal perinephric stranding favoring nephritis. Distended urinary bladder grossly unremarkable. No free fluid/air. Remaining liver, gallbladder, pancreas, spleen, adrenal glands, kidneys, ureters, and bladder are unremarkable for noncontrast exam. Mild aortoiliac calcifications without AAA. Osseous structures intact with mild degenerative changes throughout the spine. Impression: 1. Edematous left kidney with perinephric stranding. Rule out nephritis. 2. Remaining CT abdomen/pelvis without contrast exam is negative.
[2023-07-09] MEDS ORDERED: Rocephin 1000 MG INJ IM ONE (12:36)
[2023-07-09] MEDS ORDERED: Rocephin 1000 MG INJ ONE (12:48)
[2023-07-09] MEDS ORDERED: XYLOCAINE 1% HCL 20 ML MDV ONE (12:48)
[2023-07-09 13:01] VITALS: BP 130/83; PULSE 80; RESP 16
== END 2023-07-09 13:00 | disposition home or self-care (01) ==
LOC: ED 09:36
DX: N12 Tubulo-interstitial nephritis, not specified as acute or chronic (principal); R10.2 Pelvic and perineal pain; R30.0 Dysuria; R35.0 Frequency of micturition; M54.50 Low back pain, unspecified; E78.5 Hyperlipidemia, unspecified; I10 Essential (primary) hypertension; Z79.891 Long term (current) use of opiate analgesic; Z79.899 Other long term (current) drug therapy; Z28.310 Unvaccinated for COVID-19; Z72.0 Tobacco use
CPT/HCPCS: 36415; 74176; 80053; 81001; 82150; 83690; 85025; 96372; 99283; J0696

== ENCOUNTER 2023-07-11 12:22 | Emergency (ER) | payer MEDICAID ==
[2023-07-11 12:38] VITALS: TEMP 97.7
[2023-07-11 13:06] VITALS: BP 134/90; PULSE 93; RESP 17; O2SAT 94
[2023-07-11 13:18] LABS: Appearance Clear (Clear); Bacteria None Seen /HPF (None Seen); Bilirubin Negative (Negative); Blood Negative (Negative); Epithelial Cells None Seen /HPF (None Seen); Glucose, Urine Negative (Negative); Hyaline Casts NONE SEEN /LPF (0-2); Ketones Negative (Negative); Leukocyte Esterase Negative (Negative); Nitrite Negative (Negative); Ph 6.5 (4.6-8.0); Protein,Urine Dip Negative (Negative); RBC 0-2 /HPF (0-5); Specific Gravity <=1.005 (1.005-1.030); Urobilinogen 0.2 mg/dL (0.2); WBC 0-2 /HPF (0-5)
[2023-07-11 13:21] LABS: ADD URINE CULTURE? NO (NO)
--- NOTE | 2023-07-11 13:44 | ERPHSYRPT ---
- History of Present Illness Time Seen by Provider: 07/11/23 12:37 Historian: patient Exam Limitations: no limitations Patient Subjective Stated Complaint: C/O lower abd pain. States constant burning pain. He indicates he was here 2 days ago and diagnosed with a kindey infection. Patient states his back pain is better but thought he should return to the ER since the abdominal pain has not improved. Triage Nursing Assessment: Patient ambulated back to ER without difficulties. He is alert and oriented. Patient is anxious. Skin tone normal. No cough. RIGOBERTO WNJavon. Physician History: 48 years old male who was recently evaluated in the ER 2 days ago for flank and back pain/suprapubic pain, was diagnosed with acute mild left pyelonephritis, given Rocephin in here and placed on Bactrim presented in the ER with complaints of still having burning urination without hematuria. His back/flank pain is improved. No fever or chills reported. Patient just wanted to make sure that his antibiotics are working. Patient has minimal tenderness in the suprapubic area. No right or left lower quadrant tenderness. Negative CVA tenderness bilaterally. Normoactive bowel sounds in all 4 quadrants. Not tachypneic or tachycardic. No signs of sepsis. Does not want any pain medications. I have repeated urinalysis and is negative for UTI. Do not think patient needs to change antibiotics. I will give him Azo for symptomatic relief and recommended continue with current antibiotics and outpatient follow-up. Discussed signs symptoms of worsening needing return to ER which she seems understanding. Allergies/Adverse Reactions: Penicillins Allergy (Mild, Verified 07/15/23 02:51) tamsulosin [From Flomax] Adverse Reaction (Intermediate, Verified 07/15/23 02:52) Rapid Heart Beat Home Medications: Lisinopril 20 mg [Zestril 20 MG] 40 tab PO DAILY 02/14/22 [History] Amlodipine Besylate 5 mg [Norvasc 5 mg] 10 mg PO 1700 01/17/23 [History] Famotidine 20 mg PO BID 01/17/23 [History] Metoprolol Succinate 25 mg Xl* [Toprol-Xl 25MG Tablets] 25 mg PO DAILY 04/16/23 [History] Rosuvastatin Calcium 10 mg PO DAILY 07/09/23 [History] Budesonide/Formoterol Fumarate [Budesonide-Formoterol 160-4.5] 2 puffs IH BID 07/15/23 [History] Hx Tetanus, Diphtheria Vaccination/Date Given: Yes Hx Influenza Vaccination/Date Given: No Hx Pneumococcal Vaccination/Date Given: No Immunizations Up to Date: Yes Travel Risk - International Travel Have you traveled outside of the country in past 3 weeks: No - Coronavirus Screening Are you exhibiting any of the following symptoms?: No Close contact with a COVID-19 positive Pt in past 14-21 Days: No - Vaccine Status Have you recieved a Covid-19 vaccination: No - Vaccination Dates Comment: patient did not receive - Review of Systems Constitutional: No Symptoms Ears, Nose, & Throat: No Symptoms Respiratory: No Symptoms Cardiac: No Symptoms Abdominal/Gastrointestinal: Abdominal Pain Genitourinary Symptoms: Dysuria Musculoskeletal: No Symptoms Neurological: No Symptoms Psychological: No Symptoms Endocrine: No Symptoms - Past Medical History Pertinent Past Medical History: Yes Neurological History: No Pertinent History ENT History: No Pertinent History Cardiac History: High Cholesterol, Hypertension Respiratory History: COPD, Other Endocrine Medical History: No Pertinent History Musculoskeletal History: No Pertinent History GI Medical History: Diverticulitis History: No Pertinent History Psycho-Social History: Anxiety Male Reproductive Disorders: No Pertinent History - Past Surgical History Past Surgical History: No Neuro Surgical History: No Pertinent History Cardiac: No Pertinent History Respiratory: No Pertinent History Gastrointestinal: No Pertinent History Genitourinary: No Pertinent History Musculoskeletal: No Pertinent History Male Surgical History: No Pertinent History Other Surgical History: tooth extraction - Social History Smoking Status: Current every day smoker How long have you smoked: 30 yrs Exposure to second hand smoke: Yes Drug Use: none Patient Lives Alone: No - Nursing Vital Signs Nursing Vital Signs: Initial Vital Signs Temperature 97.7 F 07/11/23 12:22 Pulse Rate 97 H 07/11/23 12:22 Respiratory Rate 18 07/11/23 12:22 Blood Pressure 171/104 07/11/23 12:22 O2 Sat by Pulse Oximetry 97 07/11/23 12:22 Pain Scale Pain Intensity 5 - Physical Exam General Appearance: no apparent distress, alert Eye Exam: PERRL/EOMI Ears, Nose, Throat Exam: normal ENT inspection Neck Exam: normal inspection, full range of motion Respiratory Exam: normal breath sounds, lungs clear Cardiovascular Exam: regular rate/rhythm, normal heart sounds Gastrointestinal/Abdomen Exam: soft, normal bowel sounds, tenderness (Normal suprapubic), No guarding Back Exam: normal inspection, normal range of motion, No CVA tenderness Extremity Exam: normal inspection, normal range of motion Neurologic Exam: alert, oriented x 3, cooperative Skin Exam: normal color SpO2 Interpretation: normal SpO2: 94 O2 Delivery: Room Air Lab/Rad Data: Laboratory Results 07/11/23 Range/Units 12:50 Urine Color Yellow (Yellow) Urine Appearance Clear (Clear) Urine pH 6.5 (4.6-8.0) Ur Specific Webb <=1.005 (1.005-1.030) Urine Protein Negative (Negative) Urine Glucose (UA) Negative (Negative) mg/dL Urine Ketones Negative (Negative) Urine Blood Negative (Negative) Urine Nitrite Negative (Negative) Urine Bilirubin Negative (Negative) Urine Urobilinogen 0.2 (0.2) mg/dL Ur Leukocyte Esterase Negative (Negative) U Hyaline Cast (Auto) NONE SEEN (0-2) /LPF Urine Microscopic RBC 0-2 (0-5) /HPF Urine Microscopic WBC 0-2 (0-5) /HPF Ur Epithelial Cells None Seen (None Seen) /HPF Urine Bacteria None Seen (None Seen) /HPF Urine Culture Reflexed NO (NO) - Progress Progress: unchanged Progress Note: 07/11/23 13:41 48 years old male who was recently evaluated in the ER 2 days ago for flank and back pain/suprapubic pain, was diagnosed with acute mild left pyelonephritis, given Rocephin in here and placed on Bactrim presented in the ER with complaints of still having burning urination without hematuria. His back/flank pain is improved. No fever or chills reported. Patient just wanted to make sure that his antibiotics are working. Patient has minimal tenderness in the suprapubic area. No right or left lower quadrant tenderness. Negative CVA tenderness bilaterally. Normoactive bowel sounds in all 4 quadrants. Not tachypneic or tachycardic. No signs of sepsis. Does not want any pain medications. I have repeated urinalysis and is negative for UTI. Do not think patient needs to change antibiotics. I will give him Azo for symptomatic relief and recommended continue with current antibiotics and outpatient follow-up. Discussed signs symptoms of worsening needing return to ER which she seems understanding. Counseled pt/family regarding: lab results, diagnosis, need for follow-up Medical Desision Making - Diagnostic Testing Diagnostic test were ordered, analyzed, and reviewed by me: Yes - Risk of complications The pt has a mod risk of morbidity or mortality based on: Need for prescription drug management - Departure Departure Disposition: Home Clinical Impression: Dysuria Condition: Stable Critical Care Time: No Referrals: ERI LOZA MD [Primary Care Provider] - Follow up with PCP 1 day Instructions: Severe Abdominal Pain, Adult (DC) Additional Instructions: Drink plenty of fluids to keep yourself well-hydrated. Take Tylenol as needed. Take Azo as needed. Follow-up with primary care for reevaluation. Return to ER for intractable abdominal pain/nausea vomiting/fever chills etc.
== END 2023-07-11 13:52 | disposition home or self-care (01) ==
LOC: ED 12:22
DX: R30.0 Dysuria (principal); E78.5 Hyperlipidemia, unspecified; I10 Essential (primary) hypertension; Z79.899 Other long term (current) drug therapy; Z28.310 Unvaccinated for COVID-19; Z72.0 Tobacco use
CPT/HCPCS: 81001; 99282

== ENCOUNTER 2023-07-12 17:09 | Emergency (ER) | payer MEDICAID ==
--- NOTE | 2023-07-12 17:11 | ERPHSYRPT ---
- History of Present Illness Time Seen by Provider: 07/12/23 17:11 Source: patient Exam Limitations: no limitations Physician History: This is a 48-year-old white male patient who has been in our emergency department for various medical issues 7 times since May 28, 2023. In review of these visits, the patient seems to return at least once for the same complaint. Patient is very anxious. This is the patient's third visit since July 09 for the same genitourinary complaint. Patient was seen on July 09 and now the because of complaint of him not urinating normally and having increasing suprapubic pain. Patient has history of hypertension and hyperlipidemia. Patient wanted to be seen today by his primary care provider and they were not available. He states he only past for cups worth of urine today. CT scan of the abdomen pelvis without contrast on 07/09/2023 shows a left kidney with edema and perinephric stranding. He denies flank pain. His pain is in the suprapubic region. Timing/Duration: today Activites at Onset: none Quality: fullness, pressure Onset Location: suprapubic Severity of Pain-Max: mild (To moderate) Severity of Pain-Current: mild (To moderate) Modifying Factors: Improves With: nothing Associated Symptoms: abdominal pain (Suprapubic), other (Decreased urine output) Sexual intercourse history: non-contributory Allergies/Adverse Reactions: Penicillins Allergy (Mild, Verified 07/12/23 17:34) Home Medications: Lisinopril 20 mg [Zestril 20 MG] 40 tab PO DAILY 02/14/22 [History] Amlodipine Besylate 5 mg [Norvasc 5 mg] 10 mg PO 1700 01/17/23 [History] Famotidine 20 mg PO BID 01/17/23 [History] Metoprolol Succinate 25 mg Xl* [Toprol-Xl 25MG Tablets] 25 mg PO DAILY 04/16/23 [History] Rosuvastatin Calcium 10 mg PO HS 07/09/23 [History] Hx Tetanus, Diphtheria Vaccination/Date Given: Yes Hx Influenza Vaccination/Date Given: No Hx Pneumococcal Vaccination/Date Given: No Travel Risk - International Travel Have you traveled outside of the country in past 3 weeks: No - Coronavirus Screening Are you exhibiting any of the following symptoms?: No Close contact with a COVID-19 positive Pt in past 14-21 Days: No - Vaccine Status Have you recieved a Covid-19 vaccination: No - Vaccination Dates Comment: patient did not receive - Past Medical History Pertinent Past Medical History: Yes Neurological History: No Pertinent History ENT History: No Pertinent History Cardiac History: High Cholesterol, Hypertension Respiratory History: COPD, Other Endocrine Medical History: No Pertinent History Musculoskeletal History: No Pertinent History GI Medical History: Diverticulitis History: No Pertinent History Psycho-Social History: Anxiety Male Reproductive Disorders: No Pertinent History - Past Surgical History Past Surgical History: No Neuro Surgical History: No Pertinent History Cardiac: No Pertinent History Respiratory: No Pertinent History Gastrointestinal: No Pertinent History Genitourinary: No Pertinent History Musculoskeletal: No Pertinent History Male Surgical History: No Pertinent History Other Surgical History: tooth extraction - Social History Smoking Status: Current every day smoker How long have you smoked: 30 yrs Exposure to second hand smoke: Yes Drug Use: none Patient Lives Alone: No - Review of Systems Constitutional: No Symptoms Eyes: No Symptoms Ears, Nose, & Throat: No Symptoms Respiratory: No Symptoms Cardiac: No Symptoms Abdominal/Gastrointestinal: Abdominal Pain (Prepubic pressure/fullness) Genitourinary Symptoms: Urinary Retention Musculoskeletal: No Symptoms Skin: No Symptoms Neurological: No Symptoms Psychological: No Symptoms Endocrine: No Symptoms Hematologic/Lymphatic: No Symptoms Immunological/Allergic: No Symptoms All Other Systems: Reviewed and Negative - Nursing Vital Signs Nursing Vital Signs: Initial Vital Signs Pulse Rate 95 H 07/12/23 17:26 Respiratory Rate 20 07/12/23 17:26 Blood Pressure 168/93 07/12/23 17:26 O2 Sat by Pulse Oximetry 98 07/12/23 17:26 Pain Scale Pain Intensity 8 - Physical Exam General Appearance: no apparent distress, alert, anxiety Eye Exam: PERRL/EOMI, eyes nml inspection Ears, Nose, Throat Exam: normal ENT inspection, moist mucous membranes Neck Exam: normal inspection, non-tender, supple, full range of motion Respiratory Exam: normal breath sounds, lungs clear, airway intact, No chest tenderness, No respiratory distress Cardiovascular Exam: regular rate/rhythm, normal heart sounds, normal peripheral pulses Gastrointestinal/Abdomen Exam: soft, normal bowel sounds, tenderness (Described as a fullness or pressure in the suprapubic region.), other (No flank pain) Rectal Exam: not done Back Exam: normal inspection, normal range of motion, No CVA tenderness, No vertebral tenderness Extremity Exam: normal inspection, normal range of motion, pelvis stable Neurologic Exam: alert, oriented x 3, cooperative, associate drafter II-XII nml as tested, normal mood/affect, nml cerebellar function, nml station & gait, sensation nml Skin Exam: normal color, warm, dry Lymphatic Exam: No adenopathy SpO2 Interpretation: normal O2 Delivery: Room Air - Course Nursing assessment & vital signs reviewed: Yes Ordered Tests: Active Orders 24 hr Category Date Time Status IV Insertion STAT Care 07/12/23 18:01 Active ABDOMEN AND PELVIS W/0 CONTRAS [CT] Stat Exams 07/12/23 18:02 Taken AMYLASE Stat Lab 07/12/23 18:30 Completed CBC W DIFF Stat Lab 07/12/23 18:30 Completed CMP Stat Lab 07/12/23 18:30 Completed LIPASE Stat Lab 07/12/23 18:30 Completed Medication Summary Discontinued Medications Generic Name Dose Route Start Last Admin Trade Name Fantasmaq PRN Reason Stop Dose Admin Sodium Chloride 1,000 mls @ 999 mls/hr 07/12/23 18:01 Sodium Chloride 0.9% 1000 Ml IV 07/12/23 19:01 .Q1H1M STA Lab/Rad Data: Laboratory Result Diagrams 07/12/23 18:30 07/12/23 18:30 Laboratory Results 07/12/23 07/12/23 Range/Units 18:30 18:30 WBC 11.7 H (4.0-10.5) x10^3/uL RBC 5.49 (4.1-5.6) x10^6/uL Hgb 16.4 (12.5-18.0) g/dL Hct 48.7 (42-50) % MCV 88.7 (78-100) fL MCH 29.9 (26-32) pg MCHC 33.7 (32-36) g/dL RDW 13.4 (11.5-14.0) % Plt Count 258 (150-450) x10^3/uL MPV 9.1 (7.5-11.0) fL Gran % 76.7 H (36.0-66.0) % Immature Gran % (Auto) 0.5 H (0.00-0.4) % Nucleat RBC Rel Count 0.0 (0.00-0.1) % Eos # (Auto) 0.14 (0-0.5) x10^3/uL Immature Gran # (Auto) 0.06 H (0.00-0.03) x10^3u/L Absolute Lymphs (auto) 1.56 (1.0-4.6) x10^3/uL Absolute Monos (auto) 0.93 (0.0-1.3) x10^3/uL Absolute Nucleated RBC 0.00 (0.00-0.01) x10^3u/L Lymphocytes % 13.3 L (24.0-44.0) % Monocytes % 7.9 (0.0-12.0) % Eosinophils % 1.2 (0.00-5.0) % Basophils % 0.4 (0.0-0.4) % Absolute Granulocytes 8.96 H (1.4-6.9) x10^3/uL Basophils # 0.05 (0-0.4) x10^3/uL Sodium 135 L (137-145) mmol/L Potassium 4.3 (3.5-5.1) mmol/L Chloride 104 (98-107) mmol/L Carbon Dioxide 20 L (22-30) mmol/L Anion Gap 16.0 H (5-15) MEQ/L BUN 16 (9-20) mg/dL Creatinine 1.08 (0.66-1.25) mg/dL Estimated GFR 83.6 ML/MIN Glucose 111 H (74-106) mg/dL Calcium 9.8 (8.4-10.2) mg/dL Total Bilirubin 0.50 (0.2-1.3) mg/dL AST 42 (17-59) U/L ALT 99 H (0-50) U/L Alkaline Phosphatase 76 (38-126) U/L Serum Total Protein 8.1 (6.3-8.2) g/dL Albumin 4.8 (3.5-5.0) g/dL Amylase 61 (30-110) U/L Lipase 65 (23-300) U/L - Progress Progress Note: 07/12/23 18:06 This patient's medical issue is 1 of moderate complexity. The level of comple xity in the work-up performed is based on review of the patient's past medical history, review of the patient's medication list, review the patient's drug allergy list, history of present illness and physical findings on examination. Work-up in this patient includes placement of an intravenous line, infusion of 1 L normal saline solution, CBC, CMP, and CT scan of abdomen pelvis without contrast. We will also order an amylase and lipase level. This patient is a very anxious patient. He had a significant finding on the left kidney on 07/09/2023. However, he does not have any flank pain. His pain is in the suprapubic region described as a pressure or fullness. We we will repeat the laboratory and radiographic studies. We will provide the patient with normal saline infusion. The patient was instructed to follow-up with the urologist as an outpatient if this work-up is negative for any emergent or acute medical issue. 07/12/23 19:56 I reviewed and interpreted the patient's laboratory data. There is no evidence of any acute, emergent findings.. CT scan of the abdomen pelvis was interpreted by the radiologist and he compared this study with the same type of study performed on 07/09/2023. There are no changes. 07/12/23 19:58 Patient refusing straight cath and refuses Lo catheter placement. Counseled pt/family regarding: lab results, diagnosis, need for follow-up, rad results Medical Desision Making - Independent Historian Additional History obtained from: Relative/friend - Diagnostic Testing Diagnostic test were ordered, analyzed, and reviewed by me: Yes Radiological Interpretation: Reviewed by me, Teleradiologist Report - Risk of complications Low Risk: Low risk of morbidity from additional dx testing or treatment - Departure Departure Disposition: Home Clinical Impression: Suprapubic abdominal pain, Difficulty urinating Condition: Stable Critical Care Time: No Referrals: ERI LOZA MD [Primary Care Provider] - Follow up/PCP as directed Additional Instructions: Drink plenty of fluids. Take all your medication as prescribed. Call your primary care provider tomorrow and obtain a referral to a urologist.
[2023-07-12 17:34] VITALS: BP 168/93; PULSE 95; RESP 20; O2SAT 98
[2023-07-12] MEDS ORDERED: Sodium Chloride 0.9% 1000 ML 1,000 ML IV STA (18:01)
[2023-07-12 18:35] LABS: Absolute Neutrophil Ct (ANC) 8.96 x10^3/uL (1.4-6.9); BASOPHIL % 0.4 % (0.0-0.4); Basophil (Absolute #) 0.05 x10^3/uL (0-0.4); Eosinophil % 1.2 % (0.00-5.0); Eosinophil (Absolute #) 0.14 x10^3/uL (0-0.5); Hematocrit 48.7 % (42-50); Hemoglobin 16.4 g/dL (12.5-18.0); IMMATURE GRAN # 0.06 x10^3u/L (0.00-0.03); IMMATURE GRAN % 0.5 % (0.00-0.4); Lymphocyte (Absolute #) 1.56 x10^3/uL (1.0-4.6); Lymphocytes % 13.3 % (24.0-44.0); Mean Cell Volume 88.7 fL (78-100); Mean Corpuscular Hemoglobin 29.9 pg (26-32); Mean Corpuscular Hgb Concent. 33.7 g/dL (32-36); Mean Platelet Volume 9.1 fL (7.5-11.0); Monocyte (Absolute #) 0.93 x10^3/uL (0.0-1.3); Monocytes % 7.9 % (0.0-12.0); Neutrophil % 76.7 % (36.0-66.0); Platelet Count 258 x10^3/uL (150-450); Red Blood Count 5.49 x10^6/uL (4.1-5.6); Red Cell Distribution Width 13.4 % (11.5-14.0); White Blood Count 11.7 x10^3/uL (4.0-10.5)
[2023-07-12 19:00] LABS: ALBUMIN 4.8 g/dL (3.5-5.0); BILIRUBIN,TOTAL 0.5 mg/dL (0.2-1.3); Calcium 9.8 mg/dL (8.4-10.2); Creatinine 1 1.08 mg/dL (0.66-1.25); EST GLOMERULAR FILTRATION RATE 83.6 ML/MIN; Potassium 4.3 mmol/L (3.5-5.1); Total Protein 8.1 g/dL (6.3-8.2)
--- NOTE | 2023-07-13 08:42 | XRAY ---
Indication: Abdomen pain. Urinary retention. Multiple contiguous axial images obtained through the abdomen and pelvis without contrast. Comparison: July 09, 2023 Lung bases clear. Heart not enlarged. Noncontrasted stomach and bowel loops nonobstructed with normal-appearing appendix. Previous minimal left perirenal stranding unchanged. Near empty urinary bladder demonstrates circumferential wall thickening either incomplete distention versus cystitis. No free fluid/air. Remaining liver, gallbladder, pancreas, spleen, adrenal glands, kidneys, ureters, and bladder are unremarkable for noncontrast exam. Stable mild aortoiliac calcifications without AAA. Impression: 1. Stable minimal left perirenal stranding. Again rule out nephritis. 2. Urinary bladder circumferential wall thickening either incomplete distention versus cystitis. 3. No new intra-abdominal/pelvic abnormalities on this noncontrast exam.
== END 2023-07-12 20:23 | disposition home or self-care (01) ==
LOC: ED 17:09
DX: R10.2 Pelvic and perineal pain (principal); R39.198 Other difficulties with micturition; I10 Essential (primary) hypertension; E78.5 Hyperlipidemia, unspecified; Z79.899 Other long term (current) drug therapy; Z28.310 Unvaccinated for COVID-19; Z72.0 Tobacco use
CPT/HCPCS: 36415; 74176; 80053; 82150; 83690; 85025; 99283

== ENCOUNTER 2023-07-15 02:27 | Emergency (ER) | payer MEDICAID ==
[2023-07-15 02:39] VITALS: RESP 20; TEMP 98.3; O2SAT 99
--- NOTE | 2023-07-15 03:08 | ERPHSYRPT ---
- History of Present Illness Time Seen by Provider: 07/15/23 02:45 Source: patient Exam Limitations: no limitations Patient Subjective Stated Complaint: urinary retention Triage Nursing Assessment: pt ambulated into ER without diff, spouse at bedside. Pt alert and oriented x4, cooperative. Pt c/o urinary retention, hasn't voided x4 hours and just a little dribbling. Pt had this issue starting last Wednesday, was dx with UTI and it went to Left kidney. Pt did void at that time and he improved with that after taking flomax. Physician History: Patient is a 48-year-old male presents to our ED with urinary retention. Patient states he had a similar about 1 week ago. At that time patient was diagnosed with a urinary tract infection. Patient voided spontaneously in our ED. A catheter was not placed at that time. He was subsequently diagnosed with a UTI. Patient currently on Bactrim. He has no urinary symptomology. No fever. However patient states that his primary care doctor believes he has an enlarged prostate. Formal diagnosis has not been rendered at this time. Patient otherwise feels well. No abdominal pain. No nausea vomiting or diaphoresis. No diarrhea. No rash. Significant other at bedside. They voiced no other complaints or concerns at this time. Portions of this note were created with voice recognition technology. There may be grammatical, spelling, punctuation or sound alike errors Timing/Duration: today Severity: moderate Modifying Factors: Improves With: nothing Associated Symptoms: denies symptoms Allergies/Adverse Reactions: Penicillins Allergy (Mild, Verified 07/15/23 02:51) tamsulosin [From Flomax] Adverse Reaction (Intermediate, Verified 07/15/23 02:52) Rapid Heart Beat Home Medications: Lisinopril 20 mg [Zestril 20 MG] 40 tab PO DAILY 02/14/22 [History] Amlodipine Besylate 5 mg [Norvasc 5 mg] 10 mg PO 1700 01/17/23 [History] Famotidine 20 mg PO BID 01/17/23 [History] Metoprolol Succinate 25 mg Xl* [Toprol-Xl 25MG Tablets] 25 mg PO DAILY 04/16/23 [History] Rosuvastatin Calcium 10 mg PO DAILY 07/09/23 [History] Budesonide/Formoterol Fumarate [Budesonide-Formoterol 160-4.5] 2 puffs IH BID 07/15/23 [History] Hx Tetanus, Diphtheria Vaccination/Date Given: Yes Hx Influenza Vaccination/Date Given: No Hx Pneumococcal Vaccination/Date Given: No Immunizations Up to Date: No Travel Risk - International Travel Have you traveled outside of the country in past 3 weeks: No - Coronavirus Screening Are you exhibiting any of the following symptoms?: No Close contact with a COVID-19 positive Pt in past 14-21 Days: No - Vaccine Status Have you recieved a Covid-19 vaccination: No - Vaccination Dates Comment: patient did not receive - Review of Systems Constitutional: No Symptoms, No Fever, No Chills Eyes: No Symptoms Ears, Nose, & Throat: No Symptoms Respiratory: No Symptoms, No Cough, No Dyspnea Cardiac: No Symptoms, No Chest Pain, No Edema, No Syncope Abdominal/Gastrointestinal: No Symptoms, No Abdominal Pain, No Nausea, No Vomiting, No Diarrhea Genitourinary Symptoms: No Symptoms, No Dysuria Musculoskeletal: No Symptoms, No Back Pain, No Neck Pain Skin: No Symptoms, No Rash Neurological: No Symptoms, No Dizziness, No Focal Weakness, No Sensory Changes Psychological: No Symptoms Endocrine: No Symptoms Hematologic/Lymphatic: No Symptoms Immunological/Allergic: No Symptoms All Other Systems: Reviewed and Negative - Past Medical History Pertinent Past Medical History: Yes Neurological History: No Pertinent History ENT History: No Pertinent History Cardiac History: High Cholesterol, Hypertension Respiratory History: COPD, Other Endocrine Medical History: No Pertinent History Musculoskeletal History: No Pertinent History GI Medical History: Diverticulitis History: No Pertinent History Psycho-Social History: Anxiety Male Reproductive Disorders: Prostate Problems - Past Surgical History Past Surgical History: No Neuro Surgical History: No Pertinent History Cardiac: No Pertinent History Respiratory: No Pertinent History Gastrointestinal: No Pertinent History Genitourinary: No Pertinent History Musculoskeletal: No Pertinent History Male Surgical History: No Pertinent History Other Surgical History: tooth extraction - Social History Smoking Status: Current every day smoker How long have you smoked: 30 yrs Exposure to second hand smoke: Yes Drug Use: none Patient Lives Alone: No - Nursing Vital Signs Nursing Vital Signs: Initial Vital Signs Temperature 98.3 F 07/15/23 02:38 Pulse Rate 94 H 07/15/23 02:38 Respiratory Rate 20 07/15/23 02:38 Blood Pressure 150/103 07/15/23 02:38 O2 Sat by Pulse Oximetry 99 07/15/23 02:38 Pain Scale Pain Intensity 4 - Physical Exam General Appearance: no apparent distress, alert Eye Exam: PERRL/EOMI, eyes nml inspection Ears, Nose, Throat Exam: normal ENT inspection, TMs normal, pharynx normal, moist mucous membranes Neck Exam: normal inspection, non-tender, supple, full range of motion Respiratory Exam: normal breath sounds, lungs clear, airway intact, No respiratory distress Cardiovascular Exam: regular rate/rhythm, normal heart sounds, normal peripheral pulses Gastrointestinal/Abdomen Exam: soft, normal bowel sounds, No tenderness, No mass Back Exam: normal inspection, normal range of motion, No CVA tenderness, No vertebral tenderness Extremity Exam: normal inspection, normal range of motion, pelvis stable, other (Full suprapubic region likely urinary retention) Neurologic Exam: alert, oriented x 3, cooperative, normal mood/affect, nml cerebellar function, nml station & gait, sensation nml, No motor deficits Skin Exam: normal color, warm, dry, No rash Lymphatic Exam: No adenopathy SpO2 Interpretation: normal SpO2: 99 O2 Delivery: Room Air - Course Nursing assessment & vital signs reviewed: Yes - Progress Progress: improved Progress Note: Patient is a 48-year-old male presents to our ED for evaluation and treatment of urinary retention. Physical exam reveals fullness at the suprapubic region. Lo catheter placed. 600 cc urine immediately obtained. Patient felt immediate relief. Lo catheter kept in place. Lo switched for leg bag. Patient currently on Bactrim to treat a known urinary tract infection. Repeat urinalysis not performed. No indication for further workup at this time. Will discharge home. Patient agrees to follow-up with primary care doctor within 48 hours for reevaluation. He voices no other complaints or concerns at this time. Portions of this note were created with voice recognition technology. There may be grammatical, spelling, punctuation or sound alike errors Complexity problem addressed is moderate acute complicated No critical care time Complexity of data reviewed and analyzed is none. No specialized testing ordered. Diagnosis made based on history and physical exam Risk of complication and or risk of morbidity/mortality of patient management is moderate. Lo catheter in place. Vital stable. Discharge diagnosis urinary retention. Time spent to discharge patient is approximately 10 minutes. Plan of care established for shared decision making. No social determinants of health present impede follow-up. Portions of this note were created with voice recognition technology. There may be grammatical, spelling, punctuation or sound alike errors 07/15/23 03:33 Counseled pt/family regarding: diagnosis, need for follow-up - Departure Departure Disposition: Home Clinical Impression: Urinary retention Condition: Stable Critical Care Time: No Referrals: ERI LOZA MD [Primary Care Provider] - Follow up/PCP as directed Instructions: Urinary Retention (DC) Additional Instructions: Discharge/Care Plan HALLEY FRANKLIN was seen on 07/15/23 in the Emergency Room. The patient was counseled regarding Diagnosis,Lab results, Imaging studies, need for follow up and when to return to the Emergency Room. Prescriptions given: Discharge Note I have spoken with the patient and/or caregivers. I have explained the patient's condition, diagnosis and treatment plan based on the information available to me at this time. I have answered the patient's and/or caregiver's questions and addressed any concerns. The patient and/or caregivers have as good understanding of the patient's diagnosis, condition and treatment plan as can be expected at this point. The vital signs have been stable. The patient's condition is stable and appropriate for discharge from the emergency department. The patient will pursue further outpatient evaluation with the primary care physician or other designated or consulting physician as outlined in the discharge instructions. The patient and/or caregivers are agreeable to this plan of care and follow-up instructions have been explained in detail. The patient and/or caregivers have received these instruction. The patient/and or caregivers are aware that any significant change in condition or worsening of symptoms should prompt an immediate return to this or the closest emergency department or call 911.
[2023-07-15 03:28] VITALS: BP 122/80; PULSE 100
== END 2023-07-15 03:43 | disposition home or self-care (01) ==
LOC: ED 02:27
DX: R33.9 Retention of urine, unspecified (principal); E78.5 Hyperlipidemia, unspecified; I10 Essential (primary) hypertension; Z79.899 Other long term (current) drug therapy; Z28.310 Unvaccinated for COVID-19; Z72.0 Tobacco use
CPT/HCPCS: 51702; 99282

== ENCOUNTER 2023-07-15 12:01 | Observation (INO) | payer MEDICAID ==
[2023-07-15] MEDS ORDERED: Sodium Chloride 0.9% 1000 ML 1,000 ML IV STA (12:24)
--- NOTE | 2023-07-15 12:37 | ERPHSYRPT ---
- History of Present Illness Time Seen by Provider: 07/15/23 12:04 Source: patient Exam Limitations: no limitations Patient Subjective Stated Complaint: PT HERE FOR NAUSEA,DIZZINESS AT TIMES, WAS SEEN THIS AM AND HAD FC PLACED, HE WAS DX LAST WEEK WITH UTI AND PLACED ON AN TIBOITCS. NO FEVER Triage Nursing Assessment: PT ALERT, RESP EASY, SKIN W/D/P, WALKED TO CART, HAS FC IN PLACE, DARK YELLOW URINE IN BAG, NO EDEMA NOTED Physician History: 48 years old male with history of hypertension, hyperlipidemia, tobacco abuse, anxiety/depression who was recently being treated for UTI and has been seen in the ER twice, had urinary retention and Lo catheter was placed and this morning. Patient reported on the way back home he got flushed, warm feeling and lightheaded and nauseated. No vomiting. Does complain of bilateral flank pain with subjective feeling of fever and chills. Patient is currently on Bactrim. Patient was recently placed on Flomax by primary care for possible BPH which helped the flow of urine but he started to have palpitations. Patient also reports feeling weak and lightheaded with ambulation. Patient is very anxious and feels like his blood pressure is 110 systolic which is abnormal because usually his blood pressure is around 102 systolic. Allergies/Adverse Reactions: Penicillins Allergy (Mild, Verified 07/15/23 02:51) tamsulosin [From Flomax] Adverse Reaction (Intermediate, Verified 07/15/23 02:52) Rapid Heart Beat Home Medications: Lisinopril 20 mg [Zestril 20 MG] 40 tab PO DAILY 02/14/22 [History] Amlodipine Besylate 5 mg [Norvasc 5 mg] 10 mg PO 1700 01/17/23 [History] Famotidine 20 mg PO BID 01/17/23 [History] Metoprolol Succinate 25 mg Xl* [Toprol-Xl 25MG Tablets] 25 mg PO DAILY 04/16/23 [History] Rosuvastatin Calcium 10 mg PO DAILY 07/09/23 [History] Budesonide/Formoterol Fumarate [Budesonide-Formoterol 160-4.5] 2 puffs IH BID 07/15/23 [History] Hx Tetanus, Diphtheria Vaccination/Date Given: Yes Hx Influenza Vaccination/Date Given: No Hx Pneumococcal Vaccination/Date Given: No Immunizations Up to Date: Yes Travel Risk - International Travel Have you traveled outside of the country in past 3 weeks: No - Coronavirus Screening Are you exhibiting any of the following symptoms?: No Close contact with a COVID-19 positive Pt in past 14-21 Days: No - Vaccine Status Have you recieved a Covid-19 vaccination: No - Vaccination Dates Comment: patient did not receive - Review of Systems Constitutional: Fatigue, Weakness Eyes: No Symptoms Ears, Nose, & Throat: No Symptoms Respiratory: No Symptoms Cardiac: No Symptoms Abdominal/Gastrointestinal: Abdominal Pain, Nausea Genitourinary Symptoms: No Symptoms Neurological: Dizziness Psychological: Anxiety Endocrine: No Symptoms Hematologic/Lymphatic: No Symptoms Immunological/Allergic: No Symptoms - Past Medical History Pertinent Past Medical History: Yes Neurological History: No Pertinent History ENT History: No Pertinent History Cardiac History: High Cholesterol, Hypertension Respiratory History: COPD, Other Endocrine Medical History: No Pertinent History Musculoskeletal History: No Pertinent History GI Medical History: Diverticulitis History: No Pertinent History Psycho-Social History: Anxiety Male Reproductive Disorders: Prostate Problems Other Medical History: FC PLACED 07/17/2023 - Past Surgical History Past Surgical History: No Neuro Surgical History: No Pertinent History Cardiac: No Pertinent History Respiratory: No Pertinent History Gastrointestinal: No Pertinent History Genitourinary: No Pertinent History Musculoskeletal: No Pertinent History Male Surgical History: No Pertinent History Other Surgical History: tooth extraction - Social History Smoking Status: Current every day smoker How long have you smoked: 30 yrs Exposure to second hand smoke: Yes Drug Use: none Patient Lives Alone: No - Nursing Vital Signs Nursing Vital Signs: Initial Vital Signs Temperature 98.1 F 07/15/23 12:04 Pulse Rate 93 H 07/15/23 12:04 Respiratory Rate 18 07/15/23 12:04 Blood Pressure 110/83 07/15/23 12:04 O2 Sat by Pulse Oximetry 97 07/15/23 12:04 Pain Scale Pain Intensity 0 - Physical Exam General Appearance: no apparent distress, alert, anxiety Eye Exam: PERRL/EOMI Ears, Nose, Throat Exam: normal ENT inspection Neck Exam: normal inspection, non-tender, supple, full range of motion Respiratory Exam: normal breath sounds, lungs clear Cardiovascular Exam: regular rate/rhythm, normal heart sounds Gastrointestinal/Abdomen Exam: soft, normal bowel sounds, tenderness (Mild bilateral flank tenderness to deep palpation) Back Exam: normal inspection, normal range of motion Neurologic Exam: alert, oriented x 3, cooperative, nut sorter operator II-XII nml as tested, nml cerebellar function, nml station & gait, sensation nml, No normal mood/affect, No motor deficits Skin Exam: normal color SpO2 Interpretation: normal SpO2: 97 O2 Delivery: Room Air Ordered Tests: Active Orders 24 hr Category Date Time Status IV Insertion STAT Care 07/15/23 12:24 Active Orthostatic Vital Signs STAT Care 07/15/23 12:25 Active ABDOMEN AND PELVIS W/0 CONTRAS [CT] Stat Exams 07/15/23 12:25 Completed CBC W DIFF Stat Lab 07/15/23 12:38 Completed CMP Stat Lab 07/15/23 12:38 Completed CULTURE,URINE Stat Lab 07/15/23 12:35 Received Lactic Acid Stat Lab 07/15/23 12:24 Completed Sodium, Urine Stat Lab 07/15/23 Ordered TROPONIN Q4H Lab 07/15/23 12:30 Completed TROPONIN Q4H Lab 07/15/23 16:30 Ordered TROPONIN Q4H Lab 07/15/23 20:30 Ordered UA W/RFX UR CULTURE Stat Lab 07/15/23 12:35 Completed Transfer Order Routine Transfer 07/15/23 Ordered Medication Summary Generic Name Dose Route Start Last Admin Trade Name Freq PRN Reason Stop Dose Admin Levofloxacin/Dextrose 500 mg in 100 mls @ 100 mls/hr 07/15/23 14:54 Levofloxacin 500mg/100ml D5w IV 07/15/23 15:53 STAT STA Discontinued Medications Generic Name Dose Route Start Last Admin Trade Name Freq PRN Reason Stop Dose Admin Sodium Chloride 1,000 mls @ 999 mls/hr 07/15/23 12:24 07/15/23 14:00 Sodium Chloride 0.9% 1000 Ml IV 07/15/23 13:24 Infused .Q1H1M STA Infusion Sodium Chloride Confirm 07/15/23 12:51 Sodium Chloride 0.9% 1000 Ml Administered 07/15/23 12:52 Dose 1,000 mls @ ud .ROUTE .K-MED ONE Lab/Rad Data: Laboratory Result Diagrams 07/15/23 12:38 07/15/23 12:38 Laboratory Results 07/15/23 07/15/23 07/15/23 Range/Units 12:38 12:38 12:35 WBC 17.2 H (4.0-10.5) x10^3/uL RBC 5.51 (4.1-5.6) x10^6/uL Hgb 16.6 (12.5-18.0) g/dL Hct 48.5 (42-50) % MCV 88.0 (78-100) fL MCH 30.1 (26-32) pg MCHC 34.2 (32-36) g/dL RDW 13.7 (11.5-14.0) % Plt Count 256 (150-450) x10^3/uL MPV 9.0 (7.5-11.0) fL Gran % 91.1 H (36.0-66.0) % Immature Gran % (Auto) 0.4 (0.00-0.4) % Nucleat RBC Rel Count 0.0 (0.00-0.1) % Eos # (Auto) 0.07 (0-0.5) x10^3/uL Immature Gran # (Auto) 0.07 H (0.00-0.03) x10^3u/L Absolute Lymphs (auto) 0.34 L (1.0-4.6) x10^3/uL Absolute Monos (auto) 1.02 (0.0-1.3) x10^3/uL Absolute Nucleated RBC 0.00 (0.00-0.01) x10^3u/L Lymphocytes % 2.0 L (24.0-44.0) % Monocytes % 5.9 (0.0-12.0) % Eosinophils % 0.4 (0.00-5.0) % Basophils % 0.2 (0.0-0.4) % Absolute Granulocytes 15.63 H (1.4-6.9) x10^3/uL Basophils # 0.03 (0-0.4) x10^3/uL Sodium 126 L (137-145) mmol/L Potassium 5.0 (3.5-5.1) mmol/L Chloride 98 (98-107) mmol/L Carbon Dioxide 17 L (22-30) mmol/L Anion Gap 16.9 H (5-15) MEQ/L BUN 28 H (9-20) mg/dL Creatinine 1.45 H (0.66-1.25) mg/dL Estimated GFR 58.7 ML/MIN Glucose 121 H (74-106) mg/dL Lactic Acid (0.4-2.0) Calcium 9.2 (8.4-10.2) mg/dL Total Bilirubin 1.10 (0.2-1.3) mg/dL AST 41 (17-59) U/L ALT 71 H (0-50) U/L Alkaline Phosphatase 73 (38-126) U/L Troponin I (0.000-0.034) ng/mL Serum Total Protein 7.7 (6.3-8.2) g/dL Albumin 4.7 (3.5-5.0) g/dL Urine Color Yellow (Yellow) Urine Appearance Clear (Clear) Urine pH 5.5 (4.6-8.0) Ur Specific [place] 1.025 (1.005-1.030) Urine Protein 30 (Negative) Urine Glucose (UA) Negative (Negative) mg/dL Urine Ketones Trace A (Negative) Urine Blood Large A (Negative) Urine Nitrite Negative (Negative) Urine Bilirubin Negative (Negative) Urine Urobilinogen 0.2 (0.2) mg/dL Ur Leukocyte Esterase Trace A (Negative) U Hyaline Cast (Auto) 11-20 (0-2) /LPF Urine Microscopic RBC >100 A (0-5) /HPF Urine Microscopic WBC 3-5 (0-5) /HPF Ur Epithelial Cells None Seen (None Seen) /HPF Urine Bacteria None Seen (None Seen) /HPF Urine Culture Reflexed YES (NO) Slides for Path Review YES 07/15/23 07/15/23 Range/Units 12:30 12:24 WBC (4.0-10.5) x10^3/uL RBC (4.1-5.6) x10^6/uL Hgb (12.5-18.0) g/dL Hct (42-50) % MCV (78-100) fL MCH (26-32) pg MCHC (32-36) g/dL RDW (11.5-14.0) % Plt Count (150-450) x10^3/uL MPV (7.5-11.0) fL Gran % (36.0-66.0) % Immature Gran % (Auto) (0.00-0.4) % Nucleat RBC Rel Count (0.00-0.1) % Eos # (Auto) (0-0.5) x10^3/uL Immature Gran # (Auto) (0.00-0.03) x10^3u/L Absolute Lymphs (auto) (1.0-4.6) x10^3/uL Absolute Monos (auto) (0.0-1.3) x10^3/uL Absolute Nucleated RBC (0.00-0.01) x10^3u/L Lymphocytes % (24.0-44.0) % Monocytes % (0.0-12.0) % Eosinophils % (0.00-5.0) % Basophils % (0.0-0.4) % Absolute Granulocytes (1.4-6.9) x10^3/uL Basophils # (0-0.4) x10^3/uL Sodium (137-145) mmol/L Potassium (3.5-5.1) mmol/L Chloride (98-107) mmol/L Carbon Dioxide (22-30) mmol/L Anion Gap (5-15) MEQ/L BUN (9-20) mg/dL Creatinine (0.66-1.25) mg/dL Estimated GFR ML/MIN Glucose (74-106) mg/dL Lactic Acid 1.2 (0.4-2.0) Calcium (8.4-10.2) mg/dL Total Bilirubin (0.2-1.3) mg/dL AST (17-59) U/L ALT (0-50) U/L Alkaline Phosphatase (38-126) U/L Troponin I < 0.012 (0.000-0.034) ng/mL Serum Total Protein (6.3-8.2) g/dL Albumin (3.5-5.0) g/dL Urine Color (Yellow) Urine Appearance (Clear) Urine pH (4.6-8.0) Ur Specific [place] (1.005-1.030) Urine Protein (Negative) Urine Glucose (UA) (Negative) mg/dL Urine Ketones (Negative) Urine Blood (Negative) Urine Nitrite (Negative) Urine Bilirubin (Negative) Urine Urobilinogen (0.2) mg/dL Ur Leukocyte Esterase (Negative) U Hyaline Cast (Auto) (0-2) /LPF Urine Microscopic RBC (0-5) /HPF Urine Microscopic WBC (0-5) /HPF Ur Epithelial Cells (None Seen) /HPF Urine Bacteria (None Seen) /HPF Urine Culture Reflexed (NO) Slides for Path Review - Progress Progress: improved Progress Note: 07/15/23 14:57 [facility] Counseled pt/family regarding: lab results, diagnosis, rad results - Departure Referrals: ERI LOZA MD [Primary Care Provider] - Follow up/PCP as directed
[2023-07-15 12:44] LABS: Absolute Neutrophil Ct (ANC) 15.63 x10^3/uL (1.4-6.9); BASOPHIL % 0.2 % (0.0-0.4); Basophil (Absolute #) 0.03 x10^3/uL (0-0.4); Eosinophil % 0.4 % (0.00-5.0); Eosinophil (Absolute #) 0.07 x10^3/uL (0-0.5); Hematocrit 48.5 % (42-50); Hemoglobin 16.6 g/dL (12.5-18.0); IMMATURE GRAN # 0.07 x10^3u/L (0.00-0.03); IMMATURE GRAN % 0.4 % (0.00-0.4); Lymphocyte (Absolute #) 0.34 x10^3/uL (1.0-4.6); Mean Corpuscular Hemoglobin 30.1 pg (26-32); Mean Corpuscular Hgb Concent. 34.2 g/dL (32-36); Monocyte (Absolute #) 1.02 x10^3/uL (0.0-1.3); Monocytes % 5.9 % (0.0-12.0); Neutrophil % 91.1 % (36.0-66.0); Platelet Count 256 x10^3/uL (150-450); Red Blood Count 5.51 x10^6/uL (4.1-5.6); Red Cell Distribution Width 13.7 % (11.5-14.0); White Blood Count 17.2 x10^3/uL (4.0-10.5)
[2023-07-15] MEDS ORDERED: Sodium Chloride 0.9% 1000 ML 1,000 ML ONE (12:51)
[2023-07-15 12:59] LABS: Appearance Clear (Clear); Bacteria None Seen /HPF (None Seen); Bilirubin Negative (Negative); Blood Large (Negative); Epithelial Cells None Seen /HPF (None Seen); Glucose, Urine Negative (Negative); Ketones Trace (Negative); Leukocyte Esterase Trace (Negative); Nitrite Negative (Negative); Ph 5.5 (4.6-8.0); Protein,Urine Dip 30 (Negative); RBC >100 /HPF (0-5); Specific Gravity 1.025 (1.005-1.030); Urobilinogen 0.2 mg/dL (0.2)
[2023-07-15 13:00] LABS: ADD URINE CULTURE? YES (NO)
[2023-07-15 13:28] LABS: ALBUMIN 4.7 g/dL (3.5-5.0); ANION GAP 16.9 MEQ/L (5-15); BILIRUBIN,TOTAL 1.1 mg/dL (0.2-1.3); Calcium 9.2 mg/dL (8.4-10.2); Creatinine 1 1.45 mg/dL (0.66-1.25); EST GLOMERULAR FILTRATION RATE 58.7 ML/MIN; Total Protein 7.7 g/dL (6.3-8.2)
--- NOTE | 2023-07-15 14:24 | XRAY ---
CLINICAL HISTORY:ABD PAIN / PYELONEPHRITIS COMPARISON:CT abdomen and pelvis dated 07/12/2023. TECHNIQUES:CT scan of the abdomen and pelvis was performed without intravenous contrast. Coronal and sagittal reconstructive images were also obtained. FINDINGS: The liver is average in size and measures 17 cm. No focal or diffuse parenchymal abnormality. The intrahepatic biliary radicals and the bile ducts are normal. The spleen is of average size, showing few tiny calcific foci likely old granulomas. The pancreas, and adrenal glands are unremarkable. Bilateral kidneys are showing mild perirenal fat stranding, more on the left side. No calculus or hydronephrosis is seen. The gallbladder is normal. No pericholecystic collection or radio-dense calculi in the gall bladder. The ascending colon, the transverse colon, the descending colon, visualized small bowel loops are unremarkable. There is no evidence of significant enlargement of the mesenteric or retroperitoneal lymph nodes. The foleys catheter is seen in the urinary bladder. No abnormality is identified. The rectosigmoid colon is unremarkable. The prostate is unremarkable. The pelvic vasculature is unremarkable. No evidence of pelvic lymphadenopathy. Degenerative changes are seen in the spine, No lytic or sclerotic bone lesions are seen. IMPRESSION: Bilateral mild perirenal fat stranding, more on the left side with no evidence of any calculus or hydronephrosis on either side. Splenic calcification. The rest of the CT abdomen and pelvis without contrast is normal. In comparison with the previous study dated 07/12/2023, there is interval stability in the disease process. Clinical and labs follow-up is advised. Electronically Signed by: Andre Dickey MD. (07/15/2023 13:16:36 [employer])
[2023-07-15 14:42] LABS: Slide Review 1 YES
[2023-07-15] MEDS ORDERED: Levofloxacin 500MG/100ML D5W 500 MG/100 ML BAG IV STA (14:54)
[2023-07-15] MEDS ORDERED: Levofloxacin 500MG/100ML D5W 500 MG/100 ML BAG IV ONE (14:59)
[2023-07-15] MEDS ORDERED: NON-FORMULARY BULK ITEM IH PRN (15:44)
--- NOTE | 2023-07-15 16:34 | PCM.HP ---
History of Present Illness - Chief Complaint Chief Complaint: Acute pyelonephritis. Hyponatremia, KONRAD Date: 07/15/23 (1500) History of Present Illness: is a 48 year old male with near syncope, nausea, abdominal pain, and urinary retention. His symptoms started last Wednesday with a kidney infection. He was started on Bactrim. He had progressive problems voiding and came to ER last night to have a catheter placed. He went home and developed nausea and near sy ncope. He had fever to 100 but no chills. He has ongoing nausea. He has bilateral flank pain described as aching pain radiating to back. He has had hiccups. He complains of bladder pain. He has diarrhea. He complains of dyspnea and slight right sided chest pain. No cough. No edema. - Review of Systems Constitutional: Fever, No Chills Eyes: No Symptoms Ears, Nose, & Throat: No Symptoms Respiratory: Short Of Breath Cardiac: No Symptoms Abdominal/Gastrointestinal: Abdominal Pain, Nausea, Diarrhea, No Vomiting Genitourinary Symptoms: No Symptoms Musculoskeletal: No Symptoms Neurological: No Symptoms Psychological: Suicidal Ideations Endocrine: No Symptoms Hematologic/Lymphatic: No Symptoms Immunological/Allergic: No Symptoms All Other Systems: Reviewed and Negative Medications & Allergies Home Medications: Home Medication List Lisinopril 20 mg [Zestril 20 MG] 40 tab PO DAILY 02/14/22 [History Confirmed 07/15/23] Amlodipine Besylate 5 mg [Norvasc 5 mg] 10 mg PO 1700 01/17/23 [History Confirmed 07/15/23] Famotidine 20 mg PO BID 01/17/23 [History Confirmed 07/15/23] Metoprolol Succinate 25 mg Xl* [Toprol-Xl 25MG Tablets] 25 mg PO DAILY 04/16/23 [History Confirmed 07/15/23] Albuterol Common Canister [Ventolin Common Canister] 2 puff IH Q4-6HPRN PRN 30 Days #1 06/16/23 [Rx Confirmed 07/15/23] Tiotropium [place] Inhaler [Spiriva 18 Mcg/Cap Inhaler] 1 ea IH 0700 30 Days #1 inhaler 06/16/23 [Rx Confirmed 07/15/23] Hydrocodone/Acetaminophen [Hydrocodone-Acetamin 5-325 mg] 1 each PO Q4HPRN PRN #6 tablet MDD 4 tabs 07/09/23 [Rx Confirmed 07/15/23] Rosuvastatin Calcium 10 mg PO DAILY 07/09/23 [History Confirmed 07/15/23] Smz/Tmp Ds Tablet [Bactrim Ds Tablet] 1 tab PO Q12H 7 Days #14 tablet 07/09/23 [Rx Confirmed 07/15/23] Budesonide/Formoterol Fumarate [Budesonide-Formoterol 160-4.5] 2 puffs IH BID 07/15/23 [History Confirmed 07/15/23] Allergies/Adverse Reactions: Allergies Allergy/AdvReac Type Severity Reaction Status Date / Time Penicillins Allergy Mild Verified 07/15/23 02:51 tamsulosin [From Flomax] AdvReac Intermediate Rapid Verified 07/15/23 02:52 Heart Beat - Past Medical History Past Medical History: Yes Neurological History: No Pertinent History ENT History: No Pertinent History Cardiac History: High Cholesterol, Hypertension Respiratory History: COPD, Other Endocrine Medical History: No Pertinent History Musculoskelatal History: No Pertinent History GI Medical History: Diverticulitis History: Other Pyscho-Social History: Anxiety Male Reproductive Disorders: Prostate Problems Comment: FC PLACED 07/15/2023 - Past Surgical History Past Surgical History: No Neuro Surgical History: No Pertinent History Cardiac History: No Pertinent History Respiratory Surgery: No Pertinent History GI Surgical History: No Pertinent History Genitourinary Surgical Hx: No Pertinent History Musculskeletal Surgical Hx: No Pertinent History Male Surgical History: No Pertinent History Other Surgical History: tooth extraction - Social History Smoking Status: Current every day smoker How long have you smoked: 30+ Exposure to second hand smoke: No Alcohol: None Drug Use: none - Physical Exam Vital Signs: Vital Signs - 24 hr Temp Pulse Resp BP BP Pulse Ox 07/15/23 15:44 97.7 F 104 H 16 119/71 95 07/15/23 15:14 70 16 116/81 97 07/15/23 14:57 97 07/15/23 14:00 113/87 98 07/15/23 13:30 119/78 95 07/15/23 12:04 98.1 F 93 H 18 110/83 97 General Appearance: no apparent distress Neurologic Exam: alert, oriented x 3 Eye Exam: PERRL/EOMI, eyes nml inspection Ears, Nose, Throat Exam: normal ENT inspection Neck Exam: normal inspection, non-tender, supple Respiratory Exam: diminished breath sounds, crackles/rales, rhonchi Cardiovascular Exam: regular rate/rhythm, normal heart sounds, tachycardia Gastrointestinal/Abdomen Exam: soft, normal bowel sounds, tenderness, No mass Male Genitalia Exam: normal genitalia Back Exam: normal inspection Extremity Exam: normal inspection Skin Exam: normal color, warm, dry Lymphatic Exam: No adenopathy Results - Labs Lab/Micro Results: Lab Results-Last 24 Hours 07/15/23 07/15/23 07/15/23 Range/Units 12:24 12:30 12:35 WBC (4.0-10.5) x10^3/uL RBC (4.1-5.6) x10^6/uL Hgb (12.5-18.0) g/dL Hct (42-50) % MCV (78-100) fL MCH (26-32) pg MCHC (32-36) g/dL RDW (11.5-14.0) % Plt Count (150-450) x10^3/uL MPV (7.5-11.0) fL Gran % (36.0-66.0) % Immature Gran % (Auto) (0.00-0.4) % Nucleat RBC Rel Count (0.00-0.1) % Eos # (Auto) (0-0.5) x10^3/uL Immature Gran # (Auto) (0.00-0.03) x10^3u/L Absolute Lymphs (auto) (1.0-4.6) x10^3/uL Absolute Monos (auto) (0.0-1.3) x10^3/uL Absolute Nucleated RBC (0.00-0.01) x10^3u/L Lymphocytes % (24.0-44.0) % Monocytes % (0.0-12.0) % Eosinophils % (0.00-5.0) % Basophils % (0.0-0.4) % Absolute Granulocytes (1.4-6.9) x10^3/uL Basophils # (0-0.4) x10^3/uL Sodium (137-145) mmol/L Potassium (3.5-5.1) mmol/L Chloride (98-107) mmol/L Carbon Dioxide (22-30) mmol/L Anion Gap (5-15) MEQ/L BUN (9-20) mg/dL Creatinine (0.66-1.25) mg/dL Estimated GFR ML/MIN Glucose (74-106) mg/dL Lactic Acid 1.2 (0.4-2.0) Calcium (8.4-10.2) mg/dL Total Bilirubin (0.2-1.3) mg/dL AST (17-59) U/L ALT (0-50) U/L Alkaline Phosphatase (38-126) U/L Troponin I < 0.012 (0.000-0.034) ng/mL Serum Total Protein (6.3-8.2) g/dL Albumin (3.5-5.0) g/dL Urine Color Yellow (Yellow) Urine Appearance Clear (Clear) Urine pH 5.5 (4.6-8.0) Ur Specific [place] 1.025 (1.005-1.030) Urine Protein 30 (Negative) Urine Glucose (UA) Negative (Negative) mg/dL Urine Ketones Trace A (Negative) Urine Blood Large A (Negative) Urine Nitrite Negative (Negative) Urine Bilirubin Negative (Negative) Urine Urobilinogen 0.2 (0.2) mg/dL Ur Leukocyte Esterase Trace A (Negative) U Hyaline Cast (Auto) 11-20 (0-2) /LPF Urine Microscopic RBC >100 A (0-5) /HPF Urine Microscopic WBC 3-5 (0-5) /HPF Ur Epithelial Cells None Seen (None Seen) /HPF Urine Bacteria None Seen (None Seen) /HPF Urine Culture Reflexed YES (NO) Urine Sodium (30-90) mmol/L Slides for Path Review 07/15/23 07/15/23 07/15/23 Range/Units 12:38 12:38 15:12 WBC 17.2 H (4.0-10.5) x10^3/uL RBC 5.51 (4.1-5.6) x10^6/uL Hgb 16.6 (12.5-18.0) g/dL Hct 48.5 (42-50) % MCV 88.0 (78-100) fL MCH 30.1 (26-32) pg MCHC 34.2 (32-36) g/dL RDW 13.7 (11.5-14.0) % Plt Count 256 (150-450) x10^3/uL MPV 9.0 (7.5-11.0) fL Gran % 91.1 H (36.0-66.0) % Immature Gran % (Auto) 0.4 (0.00-0.4) % Nucleat RBC Rel Count 0.0 (0.00-0.1) % Eos # (Auto) 0.07 (0-0.5) x10^3/uL Immature Gran # (Auto) 0.07 H (0.00-0.03) x10^3u/L Absolute Lymphs (auto) 0.34 L (1.0-4.6) x10^3/uL Absolute Monos (auto) 1.02 (0.0-1.3) x10^3/uL Absolute Nucleated RBC 0.00 (0.00-0.01) x10^3u/L Lymphocytes % 2.0 L (24.0-44.0) % Monocytes % 5.9 (0.0-12.0) % Eosinophils % 0.4 (0.00-5.0) % Basophils % 0.2 (0.0-0.4) % Absolute Granulocytes 15.63 H (1.4-6.9) x10^3/uL Basophils # 0.03 (0-0.4) x10^3/uL Sodium 126 L (137-145) mmol/L Potassium 5.0 (3.5-5.1) mmol/L Chloride 98 (98-107) mmol/L Carbon Dioxide 17 L (22-30) mmol/L Anion Gap 16.9 H (5-15) MEQ/L BUN 28 H (9-20) mg/dL Creatinine 1.45 H (0.66-1.25) mg/dL Estimated GFR 58.7 ML/MIN Glucose 121 H (74-106) mg/dL Lactic Acid (0.4-2.0) Calcium 9.2 (8.4-10.2) mg/dL Total Bilirubin 1.10 (0.2-1.3) mg/dL AST 41 (17-59) U/L ALT 71 H (0-50) U/L Alkaline Phosphatase 73 (38-126) U/L Troponin I (0.000-0.034) ng/mL Serum Total Protein 7.7 (6.3-8.2) g/dL Albumin 4.7 (3.5-5.0) g/dL Urine Color (Yellow) Urine Appearance (Clear) Urine pH (4.6-8.0) Ur Specific [place] (1.005-1.030) Urine Protein (Negative) Urine Glucose (UA) (Negative) mg/dL Urine Ketones (Negative) Urine Blood (Negative) Urine Nitrite (Negative) Urine Bilirubin (Negative) Urine Urobilinogen (0.2) mg/dL Ur Leukocyte Esterase (Negative) U Hyaline Cast (Auto) (0-2) /LPF Urine Microscopic RBC (0-5) /HPF Urine Microscopic WBC (0-5) /HPF Ur Epithelial Cells (None Seen) /HPF Urine Bacteria (None Seen) /HPF Urine Culture Reflexed (NO) Urine Sodium 36 (30-90) mmol/L Slides for Path Review YES - Radiology Impressions Radiology Exams & Impressions: Radiology Procedures Category Date Time Status ABDOMEN AND PELVIS W/0 CONTRAS [CT] Stat Exams 07/15/23 12:25 Completed - Other Procedures and Tests Respiratory Therapy 07/15/23 15:33 Respiratory Therapy Assessment DAILY Assessment/Plan (1) Pyelonephritis Current Visit: Yes Status: Acute Assessment & Plan: Patient has flank pain, UTI and urinary retention CT shows changes consistent with pyelonephritis. Rocephin started in ER Urine culture pending. Code(s): N12 - TUBULO-INTERSTITIAL NEPHRITIS, NOT SPCF ACUTE OR CHRONIC (2) KONRAD (acute kidney injury) Current Visit: Yes Status: Acute Assessment & Plan: CR=1.4.5. Likely due to urinary retention. Recheck in am Code(s): N17.9 - ACUTE KIDNEY FAILURE, UNSPECIFIED (3) HTN (hypertension) Current Visit: No Status: Chronic Qualifiers: Hypertension type: primary hypertension Qualified Code(s): I10 - Essential (primary) hypertension Assessment & Plan: Continue home meds Code(s): I10 - ESSENTIAL (PRIMARY) HYPERTENSION (4) Hyperlipidemia Current Visit: No Status: Chronic Assessment & Plan: Continue home meds Code(s): E78.5 - HYPERLIPIDEMIA, UNSPECIFIED (5) Hyponatremia Current Visit: Yes Status: Acute Assessment & Plan: [id number]. May be related to urinary retention. Plan recheck in am. Will not restrict fluids due to KONRAD Code(s): E87.1 - HYPO-OSMOLALITY AND HYPONATREMIA (6) Urinary retention Current Visit: No Status: Acute Assessment & Plan: Lo catheter placed in ER last night. Code(s): R33.9 - RETENTION OF URINE, UNSPECIFIED (7) COPD (chronic obstructive pulmonary disease) Current Visit: Yes Status: Chronic Assessment & Plan: Plan bronchodilators prn Patient asking for oxygen Smokes 1/2 PPD. Recommend cessation. Telemedicine Encounter - Telemedicine Encounter Telemedicine Encounter: The entirety of this encounter was performed via Telemedicine after consent obtained. Labs and imaging reviewed. Discussed with ER provider. 70 minutes spent on this patient. Complex medical decision making. Black Gutierrez MD [facility]
[2023-07-15] MEDS ORDERED: VENTOLIN COMMON CANISTER IH PRN ×2 (16:43→16:55)
[2023-07-15] MEDS ORDERED: NORCO 5/325 MG PO PRN (16:55)
[2023-07-15] MEDS ORDERED: PROVENTIL 2.5 MG/3 ML NEB IH PRN (17:02)
[2023-07-15] MEDS: NICODERM CQ 14 MG TOP SCH (17:21)
[2023-07-15] MEDS: NORVASC 5 MG PO SCH (17:29)
[2023-07-15] MEDS: PATIENT OWN MEDICATION IH SCH (18:56)
[2023-07-15] MEDS ORDERED: Advair Hfa 230/21 Mcg COMMON CANISTER IH SCH (19:00)
[2023-07-15] MEDS: Pepcid 20 MG PO SCH (21:15)
[2023-07-15] MEDS: ROCEPHIN 1 Gm-D5w 50 ml Bag** 1 G/50 ML IVPB IV SCH (21:16)
[2023-07-15] MEDS ORDERED: NON-FORMULARY ITEM (Budesonide/Formoterol Fumarate [Budesonide-Formoterol 160-4.5] 10.2 GM IH SCH (22:00)
[2023-07-15] MEDS ORDERED: NON-FORMULARY ITEM IH SCH (22:00)
[2023-07-15] MEDS: TYLENOL 325 MG PO PRN (23:16)
[2023-07-15] MEDS: Ambien 5 MG Tablet PO PRN (23:16)
[2023-07-16 04:56] LABS: Absolute Neutrophil Ct (ANC) 5.99 x10^3/uL (1.4-6.9); BASOPHIL % 0.4 % (0.0-0.4); Basophil (Absolute #) 0.03 x10^3/uL (0-0.4); Eosinophil % 1.1 % (0.00-5.0); Eosinophil (Absolute #) 0.08 x10^3/uL (0-0.5); Hematocrit 44.9 % (42-50); Hemoglobin 14.9 g/dL (12.5-18.0); IMMATURE GRAN # 0.04 x10^3u/L (0.00-0.03); IMMATURE GRAN % 0.5 % (0.00-0.4); Lymphocyte (Absolute #) 0.44 x10^3/uL (1.0-4.6); Mean Cell Volume 90.9 fL (78-100); Mean Corpuscular Hemoglobin 30.2 pg (26-32); Mean Corpuscular Hgb Concent. 33.2 g/dL (32-36); Mean Platelet Volume 9.8 fL (7.5-11.0); Monocyte (Absolute #) 0.77 x10^3/uL (0.0-1.3); Monocytes % 10.5 % (0.0-12.0); Neutrophil % 81.5 % (36.0-66.0); Platelet Count 187 x10^3/uL (150-450); Red Blood Count 4.94 x10^6/uL (4.1-5.6); Red Cell Distribution Width 14.2 % (11.5-14.0); White Blood Count 7.4 x10^3/uL (4.0-10.5)
[2023-07-16 05:18] LABS: ALBUMIN 3.9 g/dL (3.5-5.0); ALKALINE PHOSPHATASE 51 U/L (38-126); BLOOD UREA NITROGEN 23 mg/dL (9-20); CHLORIDE 103 mmol/L (98-107); Calcium 8.6 mg/dL (8.4-10.2); Carbon Dioxide 38 mmol/L (22-30); Creatinine 1 1.06 mg/dL (0.66-1.25); EST GLOMERULAR FILTRATION RATE 85.5 ML/MIN; Glucose 110 mg/dL (74-106); Potassium 5.1 mmol/L (3.5-5.1); SGOT/AST 50 U/L (17-59); SGPT/ALT 65 U/L (0-50); SODIUM 128 mmol/L (137-145); Total Protein 6.8 g/dL (6.3-8.2)
[2023-07-16 05:42] LABS: ANION GAP < 5 MEQ/L (5-15)
[2023-07-16 06:32] LABS: Slide Review 1 YES
[2023-07-16] MEDS: PATIENT OWN MEDICATION IH SCH ×4 (06:53→19:28)
[2023-07-16] MEDS ORDERED: Spiriva 18 Mcg/Cap Inhaler IH SCH ×2 (07:00→10:00)
[2023-07-16] MEDS ORDERED: PATIENT OWN MEDICATION IH PRN (07:01)
[2023-07-16] MEDS: Pepcid 20 MG PO SCH ×2 (09:00→16:28)
[2023-07-16] MEDS: ZOCOR 20MG PO SCH (09:00)
[2023-07-16] MEDS: ENOXAPARIN SODIUM SQ SCH (09:01)
[2023-07-16] MEDS: Toprol-Xl 25MG Tablets PO SCH (09:01)
[2023-07-16] MEDS: ZOFRAN ODT 4 MG PO PRN ×2 (09:47→22:16)
[2023-07-16] MEDS: QUESTRAN Light 4 GM Packet PO SCH ×2 (09:49→22:14)
[2023-07-16] MEDS ORDERED: NON-FORMULARY ITEM (Rosuvastatin Calcium [Rosuvastatin Calcium] 40 MG Tablet) PO SCH (10:00)
[2023-07-16] MEDS ORDERED: NON-FORMULARY ITEM IH SCH (10:00)
--- NOTE | 2023-07-16 16:11 | PCM.NOTE ---
Date and Time: 07/16/23 1606 Subjective Assessment: Patient reports weakness and nausea. Says he just feels sick. Having some diarrhea. Back pain improved. Decrease in the abdominal pain he was having yesterday. No vomiting. No urinary complaints but has urbina. No dyspnea or cough or sore throat. No chest pain. - Review of Systems Constitutional: No Symptoms, No Fever, No Chills Eyes: No Symptoms Ears, Nose, & Throat: No Symptoms Respiratory: No Symptoms, No Cough, No Short Of Breath Cardiac: No Symptoms, No Chest Pain, No Edema, No Palpitations Abdominal/Gastrointestinal: Abdominal Pain, Nausea, Diarrhea, No Vomiting Genitourinary Symptoms: No Symptoms, No Dysuria Musculoskeletal: No Symptoms Skin: No Symptoms Neurological: No Symptoms Psychological: No Symptoms Endocrine: No Symptoms Hematologic/Lymphatic: No Symptoms Immunological/Allergic: No Symptoms All Other Systems: Reviewed and Negative Objective Exam General Appearance: no apparent distress Neurologic Exam: alert, oriented x 3, cooperative Skin Exam: normal color, warm, dry Eye Exam: PERRL, EOMI, eyes nml inspection Ears, Nose, Throat Exam: normal ENT inspection Neck Exam: normal inspection, non-tender, supple, full range of motion Lymphatic Exam: No adenopathy Respiratory Exam: normal breath sounds Cardiovascular Exam: regular rate/rhythm, normal heart sounds, normal peripheral pulses Gastrointestinal/Abdomen Exam: soft, normal bowel sounds, tenderness Extremity Exam: normal inspection Back Exam: normal inspection Male Genitalia Exam: deferred Rectal Exam: deferred OBJECTIVE DATA Vital Signs: Vital Signs - 24 hr Temp Pulse Resp BP Pulse Ox 07/16/23 12:00 97.5 F 87 15 135/81 98 07/16/23 08:00 97.4 F 87 16 127/75 96 07/16/23 06:55 90 16 96 07/16/23 04:00 97.0 F 88 18 111/71 94 L 07/15/23 23:32 98.0 F 95 H 20 128/70 97 07/15/23 19:56 97.7 F 97 H 18 114/76 96 07/15/23 18:56 103 H 18 97 07/15/23 16:56 100 H 16 95 Pain Assessment - Last Documented Pain Intensity 0 Pain Scale Used 0-10 Pain Scale Intake and Output: Intake & Output 07/14/23 07/15/23 07/16/23 07/17/23 11:59 11:59 11:59 11:59 Intake Total 1240 350 Output Total 2465 751 Balance -1235 -401 Weight 93.9 kg Lab Results: Lab Results-Last 24 Hours 07/15/23 07/15/23 07/16/23 Range/Units 16:25 20:55 04:44 WBC 7.4 (4.0-10.5) x10^3/uL RBC 4.94 (4.1-5.6) x10^6/uL Hgb 14.9 (12.5-18.0) g/dL Hct 44.9 (42-50) % MCV 90.9 (78-100) fL MCH 30.2 (26-32) pg MCHC 33.2 (32-36) g/dL RDW 14.2 H (11.5-14.0) % Plt Count 187 (150-450) x10^3/uL MPV 9.8 (7.5-11.0) fL Gran % 81.5 H (36.0-66.0) % Immature Gran % (Auto) 0.5 H (0.00-0.4) % Nucleat RBC Rel Count 0.0 (0.00-0.1) % Eos # (Auto) 0.08 (0-0.5) x10^3/uL Immature Gran # (Auto) 0.04 H (0.00-0.03) x10^3u/L Absolute Lymphs (auto) 0.44 L (1.0-4.6) x10^3/uL Absolute Monos (auto) 0.77 (0.0-1.3) x10^3/uL Absolute Nucleated RBC 0.00 (0.00-0.01) x10^3u/L Lymphocytes % 6.0 L (24.0-44.0) % Monocytes % 10.5 (0.0-12.0) % Eosinophils % 1.1 (0.00-5.0) % Basophils % 0.4 (0.0-0.4) % Absolute Granulocytes 5.99 (1.4-6.9) x10^3/uL Basophils # 0.03 (0-0.4) x10^3/uL Sodium (137-145) mmol/L Potassium (3.5-5.1) mmol/L Chloride (98-107) mmol/L Carbon Dioxide (22-30) mmol/L Anion Gap (5-15) MEQ/L BUN (9-20) mg/dL Creatinine (0.66-1.25) mg/dL Estimated GFR ML/MIN Glucose (74-106) mg/dL Calcium (8.4-10.2) mg/dL Total Bilirubin (0.2-1.3) mg/dL AST (17-59) U/L ALT (0-50) U/L Alkaline Phosphatase (38-126) U/L Troponin I < 0.012 < 0.012 (0.000-0.034) ng/mL Serum Total Protein (6.3-8.2) g/dL Albumin (3.5-5.0) g/dL Slides for Path Review YES 07/16/23 Range/Units 04:44 WBC (4.0-10.5) x10^3/uL RBC (4.1-5.6) x10^6/uL Hgb (12.5-18.0) g/dL Hct (42-50) % MCV (78-100) fL MCH (26-32) pg MCHC (32-36) g/dL RDW (11.5-14.0) % Plt Count (150-450) x10^3/uL MPV (7.5-11.0) fL Gran % (36.0-66.0) % Immature Gran % (Auto) (0.00-0.4) % Nucleat RBC Rel Count (0.00-0.1) % Eos # (Auto) (0-0.5) x10^3/uL Immature Gran # (Auto) (0.00-0.03) x10^3u/L Absolute Lymphs (auto) (1.0-4.6) x10^3/uL Absolute Monos (auto) (0.0-1.3) x10^3/uL Absolute Nucleated RBC (0.00-0.01) x10^3u/L Lymphocytes % (24.0-44.0) % Monocytes % (0.0-12.0) % Eosinophils % (0.00-5.0) % Basophils % (0.0-0.4) % Absolute Granulocytes (1.4-6.9) x10^3/uL Basophils # (0-0.4) x10^3/uL Sodium 128 L (137-145) mmol/L Potassium 5.1 (3.5-5.1) mmol/L Chloride 103 (98-107) mmol/L Carbon Dioxide 38 H (22-30) mmol/L Anion Gap < 5 L (5-15) MEQ/L BUN 23 H (9-20) mg/dL Creatinine 1.06 (0.66-1.25) mg/dL Estimated GFR 85.5 ML/MIN Glucose 110 H (74-106) mg/dL Calcium 8.6 (8.4-10.2) mg/dL Total Bilirubin 1.20 (0.2-1.3) mg/dL AST 50 (17-59) U/L ALT 65 H (0-50) U/L Alkaline Phosphatase 51 (38-126) U/L Troponin I (0.000-0.034) ng/mL Serum Total Protein 6.8 (6.3-8.2) g/dL Albumin 3.9 (3.5-5.0) g/dL Slides for Path Review Radiology Exams: Radiology Procedures Category Date Time Status ABDOMEN AND PELVIS W/0 CONTRAS [CT] Stat Exams 07/15/23 12:25 Completed Assessment/Plan (1) Pyelonephritis Current Visit: Yes Status: Acute Code(s): N12 - TUBULO-INTERSTITIAL NEPHRITIS, NOT SPCF ACUTE OR CHRONIC (2) KONRAD (acute kidney injury) Current Visit: Yes Status: Acute Code(s): N17.9 - ACUTE KIDNEY FAILURE, UNSPECIFIED (3) HTN (hypertension) Current Visit: No Status: Chronic Qualifiers: Hypertension type: primary hypertension Qualified Code(s): I10 - Essential (primary) hypertension Code(s): I10 - ESSENTIAL (PRIMARY) HYPERTENSION (4) Hyperlipidemia Current Visit: No Status: Chronic Code(s): E78.5 - HYPERLIPIDEMIA, UNSPECIFIED (5) Hyponatremia Current Visit: Yes Status: Acute Code(s): E87.1 - HYPO-OSMOLALITY AND HYPONATREMIA (6) Urinary retention Current Visit: No Status: Acute Code(s): R33.9 - RETENTION OF URINE, UNSPECIFIED (7) COPD (chronic obstructive pulmonary disease) Current Visit: Yes Status: Chronic Assessment & Plan: (1) Pyelonephritis Current Visit: Yes Status: Acute Assessment & Plan: Presented with flank pain, UTI and urinary retention Pyelonephritis seen on CT scan Continue Rocephin Urine culture pending Still has urbina catheter placed in ER Code(s): N12 - TUBULO-INTERSTITIAL NEPHRITIS, NOT SPCF ACUTE OR CHRONIC (2) KONRAD (acute kidney injury) Current Visit: Yes Status: Acute Assessment & Plan: Resolved. KONRAD was likely due to urinary retention Code(s): N17.9 - ACUTE KIDNEY FAILURE, UNSPECIFIED (3) HTN (hypertension) Current Visit: No Status: Chronic Qualifiers: Hypertension type: primary hypertension Qualified Code(s): I10 - Essential (primary) hypertension Assessment & Plan: Continue home meds Code(s): I10 - ESSENTIAL (PRIMARY) HYPERTENSION (4) Hyperlipidemia Current Visit: No Status: Chronic Assessment & Plan: Continue home meds Code(s): E78.5 - HYPERLIPIDEMIA, UNSPECIFIED (5) Hyponatremia Current Visit: Yes Status: Acute Assessment & Plan: Nn=[id number]. Improved Recheck in am Code(s): E87.1 - HYPO-OSMOLALITY AND HYPONATREMIA (6) Urinary retention Current Visit: No Status: Acute Assessment & Plan: [place] catheter placed in ER Code(s): R33.9 - RETENTION OF URINE, UNSPECIFIED (7) COPD (chronic obstructive pulmonary disease) Current Visit: Yes Status: Chronic Assessment & Plan: Plan bronchodilators prn Patient asking for oxygen Smokes 1/2 PPD. Recommend cessation Mild wheezing present Telemedicine Encounter - Telemedicine Encounter Telemedicine Encounter: The entirety of this encounter was performed via Telemedicine after consent obtained. Labs and imaging reviewed. Complex medical decision making. Black Gutierrez MD [facility] Telemedicine Encounter - Telemedicine Encounter Telemedicine Encounter: The entirety of this encounter was performed via Telemedicine after consent obtained.
[2023-07-16] MEDS: NORVASC 5 MG PO SCH (16:29)
[2023-07-16] MEDS: NICODERM CQ 14 MG TOP SCH (16:30)
[2023-07-16 17:14] LABS: 027 TOX PROD PRESUMPTIVE NEGATIVE (NEGATIVE)
[2023-07-16 17:15] LABS: TOXIGENIC C. DIFF ORG POSITIVE (NEGATIVE)
[2023-07-16] MEDS ORDERED: IMODIUM 2 MG ONE (21:42)
[2023-07-16] MEDS: ROCEPHIN 1 Gm-D5w 50 ml Bag** 1 G/50 ML IVPB IV SCH (22:13)
[2023-07-16] MEDS: TYLENOL 325 MG PO PRN (22:15)
[2023-07-16] MEDS: Ambien 5 MG Tablet PO PRN (22:16)
[2023-07-16] MEDS: IMODIUM 2 MG PO PRN (23:03)
[2023-07-17] MEDS: IMODIUM 2 MG PO PRN ×2 (05:44→21:41)
[2023-07-17 06:04] LABS: Hematocrit 41.7 % (42-50); Hemoglobin 14.2 g/dL (12.5-18.0); Mean Cell Volume 88.7 fL (78-100); Mean Corpuscular Hemoglobin 30.2 pg (26-32); Mean Corpuscular Hgb Concent. 34.1 g/dL (32-36); Mean Platelet Volume 9.5 fL (7.5-11.0); Platelet Count 177 x10^3/uL (150-450); Red Cell Distribution Width 13.9 % (11.5-14.0); White Blood Count 8.1 x10^3/uL (4.0-10.5)
[2023-07-17 06:19] LABS: ANION GAP 11.9 MEQ/L (5-15); Calcium 8.6 mg/dL (8.4-10.2); Creatinine 1 0.89 mg/dL (0.66-1.25); EST GLOMERULAR FILTRATION RATE 104.4 ML/MIN; Potassium 4.2 mmol/L (3.5-5.1)
[2023-07-17] MEDS ORDERED: IMODIUM 2 MG PO PRN (08:45)
[2023-07-17] MEDS: PATIENT OWN MEDICATION IH SCH ×3 (09:05→19:25)
[2023-07-17] MEDS: ZOCOR 20MG PO SCH (09:40)
[2023-07-17] MEDS: Pepcid 20 MG PO SCH ×2 (09:41→21:42)
[2023-07-17] MEDS: Protonix 40MG Tablet PO SCH (09:41)
[2023-07-17] MEDS: Toprol-Xl 25MG Tablets PO SCH (09:41)
[2023-07-17] MEDS: Levofloxacin 500MG/100ML D5W 500 MG/100 ML BAG IV SCH (09:43)
[2023-07-17] MEDS: Acidophilus TABLET PO SCH (09:43)
[2023-07-17] MEDS: ceLEXa 20 MG PO SCH (09:43)
[2023-07-17] MEDS: ENOXAPARIN SODIUM SQ SCH (09:44)
[2023-07-17 10:13] LABS: Appearance Clear (Clear); Bacteria None Seen /HPF (None Seen); Bilirubin Negative (Negative); Blood Moderate (Negative); Epithelial Cells None Seen /HPF (None Seen); Glucose, Urine Negative (Negative); Hyaline Casts NONE SEEN /LPF (0-2); Ketones Negative (Negative); Leukocyte Esterase Negative (Negative); Nitrite Negative (Negative); Ph 5.5 (4.6-8.0); Protein,Urine Dip Negative (Negative); Urobilinogen 0.2 mg/dL (0.2); WBC 0-2 /HPF (0-5)
[2023-07-17 10:14] LABS: ADD URINE CULTURE? ORDERED SEPARATELY (NO)
--- NOTE | 2023-07-17 11:04 | PCM.NOTE ---
Date and Time: 07/17/23 1057 Subjective Assessment: Patient has lots of complaints. He has low abdominal cramping pain and is having diarrhea. He had belching and reflux symptoms during the night. He reports decreased appetite. He is having hiccups. He has some tenderness in low abdomen. He denies cough or dyspnea. NO chest pain. No fever. No nausea or vomiting. No urinary complaints. - Review of Systems Constitutional: No Symptoms, No Fever, No Chills Eyes: No Symptoms Ears, Nose, & Throat: No Symptoms Respiratory: No Symptoms, No Cough, No Short Of Breath Cardiac: No Symptoms, No Chest Pain, No Edema Abdominal/Gastrointestinal: Abdominal Pain, Nausea, No Vomiting, No Diarrhea Genitourinary Symptoms: No Symptoms, No Dysuria Musculoskeletal: No Symptoms Skin: No Symptoms Neurological: No Symptoms Psychological: No Symptoms Endocrine: No Symptoms Hematologic/Lymphatic: No Symptoms Immunological/Allergic: No Symptoms, Pollen Allergy All Other Systems: Reviewed and Negative Objective Exam General Appearance: mild distress Neurologic Exam: alert, oriented x 3, cooperative Skin Exam: normal color, warm, dry Eye Exam: PERRL, EOMI, eyes nml inspection Ears, Nose, Throat Exam: normal ENT inspection Neck Exam: normal inspection, non-tender, supple, full range of motion Lymphatic Exam: No adenopathy Respiratory Exam: normal breath sounds Cardiovascular Exam: regular rate/rhythm, normal heart sounds, normal peripheral pulses Gastrointestinal/Abdomen Exam: soft, normal bowel sounds, tenderness, No distention, No mass Extremity Exam: normal inspection Back Exam: normal inspection Male Genitalia Exam: deferred Rectal Exam: deferred OBJECTIVE DATA Vital Signs: Vital Signs - 24 hr Temp Pulse Resp BP Pulse Ox 07/17/23 09:07 95 H 16 97 07/17/23 07:05 98.6 F 82 17 141/85 94 L 07/17/23 04:00 98.9 F 89 17 139/86 94 L 07/16/23 23:56 99.6 F 85 16 136/84 93 L 07/16/23 20:00 97.5 F 92 H 17 132/86 95 07/16/23 18:34 99 H 18 95 07/16/23 16:00 97.5 F 87 18 117/77 94 L 07/16/23 12:00 97.5 F 87 15 135/81 98 Pain Assessment - Last Documented Pain Intensity 3 Pain Scale Used 0-10 Pain Scale Intake and Output: Intake & Output 07/14/23 07/15/23 07/16/23 07/17/23 11:59 11:59 11:59 11:59 Intake Total 1240 1070 Output Total 8498 2617 Balance -1235 -7310 Weight 93.9 kg Lab Results: Lab Results-Last 24 Hours 07/16/23 07/17/23 07/17/23 Range/Units 12:45 05:40 05:40 WBC 8.1 (4.0-10.5) x10^3/uL RBC 4.70 (4.1-5.6) x10^6/uL Hgb 14.2 (12.5-18.0) g/dL Hct 41.7 L (42-50) % MCV 88.7 (78-100) fL MCH 30.2 (26-32) pg MCHC 34.1 (32-36) g/dL RDW 13.9 (11.5-14.0) % Plt Count 177 (150-450) x10^3/uL MPV 9.5 (7.5-11.0) fL Sodium 130 L (137-145) mmol/L Potassium 4.2 (3.5-5.1) mmol/L Chloride 102 (98-107) mmol/L Carbon Dioxide 21 L (22-30) mmol/L Anion Gap 11.9 (5-15) MEQ/L BUN 14 (9-20) mg/dL Creatinine 0.89 (0.66-1.25) mg/dL Estimated GFR 104.4 ML/MIN Glucose 112 H (74-106) mg/dL Calcium 8.6 (8.4-10.2) mg/dL Urine Color (Yellow) Urine Appearance (Clear) Urine pH (4.6-8.0) Ur Specific [place] (1.005-1.030) Urine Protein (Negative) Urine Glucose (UA) (Negative) mg/dL Urine Ketones (Negative) Urine Blood (Negative) Urine Nitrite (Negative) Urine Bilirubin (Negative) Urine Urobilinogen (0.2) mg/dL Ur Leukocyte Esterase (Negative) U Hyaline Cast (Auto) (0-2) /LPF Urine Microscopic RBC (0-5) /HPF Urine Microscopic WBC (0-5) /HPF Ur Epithelial Cells (None Seen) /HPF Urine Bacteria (None Seen) /HPF Urine Culture Reflexed (NO) C. difficile Screen POSITIVE (NEGATIVE) C.difficile 027-NAP1-B1 PRESUMPTIVE NEGATIVE (NEGATIVE) 07/17/23 Range/Units Unknown WBC (4.0-10.5) x10^3/uL RBC (4.1-5.6) x10^6/uL Hgb (12.5-18.0) g/dL Hct (42-50) % MCV (78-100) fL MCH (26-32) pg MCHC (32-36) g/dL RDW (11.5-14.0) % Plt Count (150-450) x10^3/uL MPV (7.5-11.0) fL Sodium (137-145) mmol/L Potassium (3.5-5.1) mmol/L Chloride (98-107) mmol/L Carbon Dioxide (22-30) mmol/L Anion Gap (5-15) MEQ/L BUN (9-20) mg/dL Creatinine (0.66-1.25) mg/dL Estimated GFR ML/MIN Glucose (74-106) mg/dL Calcium (8.4-10.2) mg/dL Urine Color Yellow (Yellow) Urine Appearance Clear (Clear) Urine pH 5.5 (4.6-8.0) Ur Specific [place] 1.010 (1.005-1.030) Urine Protein Negative (Negative) Urine Glucose (UA) Negative (Negative) mg/dL Urine Ketones Negative (Negative) Urine Blood Moderate A (Negative) Urine Nitrite Negative (Negative) Urine Bilirubin Negative (Negative) Urine Urobilinogen 0.2 (0.2) mg/dL Ur Leukocyte Esterase Negative (Negative) U Hyaline Cast (Auto) NONE SEEN (0-2) /LPF Urine Microscopic RBC 3-5 (0-5) /HPF Urine Microscopic WBC 0-2 (0-5) /HPF Ur Epithelial Cells None Seen (None Seen) /HPF Urine Bacteria None Seen (None Seen) /HPF Urine Culture Reflexed ORDERED SEPARATELY (NO) C. difficile Screen (NEGATIVE) C.difficile 027-NAP1-B1 (NEGATIVE) Radiology Exams: Radiology Procedures Category Date Time Status ABDOMEN AND PELVIS W/0 CONTRAS [CT] Stat Exams 07/15/23 12:25 Completed Assessment/Plan (1) Pyelonephritis Current Visit: Yes Status: Acute Code(s): N12 - TUBULO-INTERSTITIAL NEPHRITIS, NOT SPCF ACUTE OR CHRONIC (2) KONRAD (acute kidney injury) Current Visit: Yes Status: Acute Code(s): N17.9 - ACUTE KIDNEY FAILURE, UNSPECIFIED (3) HTN (hypertension) Current Visit: No Status: Chronic Qualifiers: Hypertension type: primary hypertension Qualified Code(s): I10 - Essential (primary) hypertension Code(s): I10 - ESSENTIAL (PRIMARY) HYPERTENSION (4) Hyperlipidemia Current Visit: No Status: Chronic Code(s): E78.5 - HYPERLIPIDEMIA, UNSPECIFIED (5) Hyponatremia Current Visit: Yes Status: Acute Code(s): E87.1 - HYPO-OSMOLALITY AND HYPONATREMIA (6) Urinary retention Current Visit: No Status: Acute Code(s): R33.9 - RETENTION OF URINE, UNSPECIFIED (7) COPD (chronic obstructive pulmonary disease) Current Visit: Yes Status: Chronic Assessment & Plan: (1) Pyelonephritis Current Visit: Yes Status: Acute Assessment & Plan: Presented with flank pain, UTI and urinary retention Pyelonephritis seen on CT scan Urine culture pending Still has urbina catheter placed in ER Patient now having low abdominal pain It's not clear if this is due to pyelo. Will change Rocephin to Levaquin (2) KONRAD (acute kidney injury) Current Visit: Yes Status: Acute Assessment & Plan: Resolved. KONRAD was due to urinary retention Code(s): N17.9 - ACUTE KIDNEY FAILURE, UNSPECIFIED (3) HTN (hypertension) Current Visit: No Status: Chronic Qualifiers: Hypertension type: primary hypertension Qualified Code(s): I10 - Essential (primary) hypertension Assessment & Plan: Continue home meds Code(s): I10 - ESSENTIAL (PRIMARY) HYPERTENSION (4) Hyperlipidemia Current Visit: No Status: Chronic Assessment & Plan: Continue home meds Code(s): E78.5 - HYPERLIPIDEMIA, UNSPECIFIED (5) Hyponatremia Current Visit: Yes Status: Acute Assessment & Plan: Fn=[id number]. Improved Recheck in am Code(s): E87.1 - HYPO-OSMOLALITY AND HYPONATREMIA (6) Urinary retention Current Visit: No Status: Acute Assessment & Plan: Urbina catheter placed in ER Leave Urbina in for now Code(s): R33.9 - RETENTION OF URINE, UNSPECIFIED (7) COPD (chronic obstructive pulmonary disease) Current Visit: Yes Status: Chronic Assessment & Plan: Bronchodilators prn Smokes 1/2 PPD. Recommend cessation Mild wheezing present Dyspepsia Patient has belching and heart burn Continue PPI. Added Carafate Telemedicine Encounter - Telemedicine Encounter Telemedicine Encounter: The entirety of this encounter was performed via Telemedicine after consent obtained. Labs and imaging reviewed. Complex medical decision making. Black Gutierrez MD [facility] Telemedicine Encounter - Telemedicine Encounter Telemedicine Encounter: The entirety of this encounter was performed via Telemedicine after consent obtained.
[2023-07-17] MEDS: Carafate 1 GM PO SCH ×3 (11:13→21:42)
[2023-07-17] MEDS: TYLENOL 325 MG PO PRN ×2 (11:13→21:41)
[2023-07-17] MEDS: NICODERM CQ 14 MG TOP SCH (16:48)
[2023-07-17] MEDS: NORVASC 5 MG PO SCH (16:52)
[2023-07-17] MEDS: Ambien 5 MG Tablet PO PRN (21:42)
[2023-07-18 05:45] LABS: Hematocrit 41.6 % (42-50); Hemoglobin 13.7 g/dL (12.5-18.0); Mean Cell Volume 89.1 fL (78-100); Mean Corpuscular Hemoglobin 29.3 pg (26-32); Mean Corpuscular Hgb Concent. 32.9 g/dL (32-36); Mean Platelet Volume 9.1 fL (7.5-11.0); Platelet Count 172 x10^3/uL (150-450); Red Blood Count 4.67 x10^6/uL (4.1-5.6); Red Cell Distribution Width 13.5 % (11.5-14.0); White Blood Count 5.9 x10^3/uL (4.0-10.5)
[2023-07-18 06:03] LABS: ALBUMIN 3.8 g/dL (3.5-5.0); ANION GAP 9.1 MEQ/L (5-15); BILIRUBIN,TOTAL 0.7 mg/dL (0.2-1.3); Calcium 8.9 mg/dL (8.4-10.2); Creatinine 1 0.93 mg/dL (0.66-1.25); Potassium 4.1 mmol/L (3.5-5.1); Total Protein 6.6 g/dL (6.3-8.2)
[2023-07-18] MEDS: Carafate 1 GM PO SCH (06:33)
[2023-07-18 06:59] VITALS: BP 135/84; PULSE 71; RESP 16; TEMP 97.8
[2023-07-18] MEDS: PATIENT OWN MEDICATION IH SCH (08:04)
[2023-07-18 08:07] VITALS: O2SAT 95
--- NOTE | 2023-07-18 09:08 | PCM.DS ---
Discharge Summary Date of Admission: 07/15/23 15:17 Date of Discharge: 07/18/2024 Admitting Physician: HÉCTOR CRONIN MD Primary Care Provider: ERI LOZA MD Allergies Allergies Penicillins Allergy (Mild, Verified 07/15/23 02:51) tamsulosin [From Flomax] Adverse Reaction (Intermediate, Verified 07/15/23 02:52) [facility] Summary - Hospital Course Hospital Course: This patient was admitted with abdominal pain and flank pain. CT scan suggested pyelonephritis. He had problems with urinary retention and came in with a urbina catheter that was placed in ER the night prior to admission. He was started on Rocephin but was not improving and antibiotics were changed to Levaquin. Urine culture was negative but he was already on antibiotics when culture was done. He had acute kidney injury on admission that was likely due to bladder outlet obstruction. His Cr normalized while here. He had hyponatremia on admission. His serum sodium improved while here. He is much improved and is able to be dismissed on 07/18/23. He will be dismissed on oral Levaquin. We offered a voiding trial prior to discharge but he prefers to see a urologist prior to removing catheter. He has appt to see his PCP tomorrow. - Vitals & Intake/Output Vital Signs: Vital Signs Temperature 97.8 F 07/18/23 06:58 Pulse Rate 71 07/18/23 06:58 Respiratory Rate 16 07/18/23 06:58 Blood Pressure 135/84 07/18/23 06:58 O2 Sat by Pulse Oximetry 95 07/18/23 08:04 Intake & Output: Intake & Output 07/15/23 07/16/23 07/17/23 07/18/23 11:59 11:59 11:59 11:59 Intake Total 1240 1070 1540 Output Total 7475 1911 2740 Balance -3556 -3648 -580 Weight 93.9 kg - Lab Result Diagrams: 07/18/23 05:30 07/18/23 05:30 Lab Results-Last 24 Hrs: Lab Results-Last 24 Hours 07/17/23 07/18/23 07/18/23 Range/Units Unknown 05:30 05:30 WBC 5.9 (4.0-10.5) x10^3/uL RBC 4.67 (4.1-5.6) x10^6/uL Hgb 13.7 (12.5-18.0) g/dL Hct 41.6 L (42-50) % MCV 89.1 (78-100) fL MCH 29.3 (26-32) pg MCHC 32.9 (32-36) g/dL RDW 13.5 (11.5-14.0) % Plt Count 172 (150-450) x10^3/uL MPV 9.1 (7.5-11.0) fL Sodium 131 L (137-145) mmol/L Potassium 4.1 (3.5-5.1) mmol/L Chloride 101 (98-107) mmol/L Carbon Dioxide 26 (22-30) mmol/L Anion Gap 9.1 (5-15) MEQ/L BUN 13 (9-20) mg/dL Creatinine 0.93 (0.66-1.25) mg/dL Estimated GFR 100.0 ML/MIN Glucose 103 (74-106) mg/dL Calcium 8.9 (8.4-10.2) mg/dL Total Bilirubin 0.70 (0.2-1.3) mg/dL AST 31 (17-59) U/L ALT 61 H (0-50) U/L Alkaline Phosphatase 70 (38-126) U/L Serum Total Protein 6.6 (6.3-8.2) g/dL Albumin 3.8 (3.5-5.0) g/dL Urine Color Yellow (Yellow) Urine Appearance Clear (Clear) Urine pH 5.5 (4.6-8.0) Ur Specific [place] 1.010 (1.005-1.030) Urine Protein Negative (Negative) Urine Glucose (UA) Negative (Negative) mg/dL Urine Ketones Negative (Negative) Urine Blood Moderate A (Negative) Urine Nitrite Negative (Negative) Urine Bilirubin Negative (Negative) Urine Urobilinogen 0.2 (0.2) mg/dL Ur Leukocyte Esterase Negative (Negative) U Hyaline Cast (Auto) NONE SEEN (0-2) /LPF Urine Microscopic RBC 3-5 (0-5) /HPF Urine Microscopic WBC 0-2 (0-5) /HPF Ur Epithelial Cells None Seen (None Seen) /HPF Urine Bacteria None Seen (None Seen) /HPF Urine Culture Reflexed ORDERED SEPARATELY (NO) Micro Results-Entire Visit: Microbiology 07/15/23 09:10 Urine Culture - Final Catherized NO GROWTH 07/17/23 Unknown Urine Culture - Preliminary Catherized NO GROWTH TO DATE 07/16/23 07:38 Blood Culture - Preliminary Blood 07/16/23 07:25 Blood Culture - Preliminary Blood 07/15/23 12:35 Urine Culture - Final Urine, Void NO GROWTH - Procedures and Test Procedures and Tests throughout Hospitalization: Therapy Orders & Screens 07/15/23 15:33 Respiratory Therapy Assessment DAILY Comment: Diagnosis: Acute pyelonephritis. Hyponatremia, KONRAD 07/15/23 16:57 Oxygen Nasal Cannula 2 lpm Comment: Diagnosis: Acute pyelonephritis. Hyponatremia, KONRAD 07/15/23 22:00 Respiratory MDI BID Comment: SYMBICORT 2 PUFFS Diagnosis: Acute pyelonephritis. Hyponatremia, KONRAD 07/16/23 10:00 Respiratory MDI DAILY Comment: SPIRIVA 1 CAPSULE DAILY (PT'S MED FROM HOME) Diagnosis: Acute pyelonephritis. Hyponatremia, KONRAD Discharge Exam General Appearance: no apparent distress Neurologic Exam: alert, oriented x 3, cooperative Eye Exam: PERRL, EOMI, eyes nml inspection Ears, Nose, Throat Exam: normal ENT inspection Neck Exam: normal inspection, non-tender, supple, full range of motion Respiratory Exam: normal breath sounds, lungs clear Cardiovascular Exam: regular rate/rhythm, normal heart sounds, normal peripheral pulses Gastrointestinal/Abdomen Exam: soft, normal bowel sounds, No tenderness, No distention, No mass Male Genitalia Exam: deferred Rectal Exam: deferred Back Exam: normal inspection Extremity Exam: normal inspection Skin Exam: normal color Lymphatic Exam: No adenopathy Final Diagnosis/Problem List - Final Discharge Diagnosis/Problem (1) Pyelonephritis Current Visit: Yes Status: Acute Code(s): N12 - TUBULO-INTERSTITIAL NEPHRITIS, NOT SPCF ACUTE OR CHRONIC (2) KONRAD (acute kidney injury) Current Visit: Yes Status: Acute Code(s): N17.9 - ACUTE KIDNEY FAILURE, UNSPECIFIED (3) HTN (hypertension) Current Visit: No Status: Chronic Code(s): I10 - ESSENTIAL (PRIMARY) HYPERTENSION (4) Hyperlipidemia Current Visit: No Status: Chronic Code(s): E78.5 - HYPERLIPIDEMIA, UNSPECIFIED (5) Hyponatremia Current Visit: Yes Status: Acute Code(s): E87.1 - HYPO-OSMOLALITY AND HYPONATREMIA (6) Urinary retention Current Visit: No Status: Acute Code(s): R33.9 - RETENTION OF URINE, UNSPECIFIED (7) COPD (chronic obstructive pulmonary disease) Current Visit: Yes Status: Chronic Telemedicine Encounter - Telemedicine Encounter Telemedicine Encounter: The entirety of this encounter was performed via Telemedicine" - Discharge Disposition: Home, Self-Care Condition: Stable Prescriptions: New Lactobacillus Acidophilus [Acidophilus TABLET] 1 tab PO DAILY 30 Days tablet Citalopram Hydrobromide 20 mg* [ceLEXa 20 MG] 20 mg PO DAILY #30 tablet Nicotine 14 mg [Nicoderm Cq 14 mg] 14 mg TOP Q24H 30 Days patch Continue Lisinopril 20 mg [Zestril 20 MG] 40 tab PO DAILY Amlodipine Besylate 5 mg [Norvasc 5 mg] 10 mg PO 1700 Famotidine 20 mg PO BID Metoprolol Succinate 25 mg Xl* [Toprol-Xl 25MG Tablets] 25 mg PO DAILY Tiotropium [place] Inhaler [Spiriva 18 Mcg/Cap Inhaler] 1 ea IH 0700 30 Days #1 inhaler Albuterol Common Canister [Ventolin Common Canister] 2 puff IH Q4-6HPRN PRN 30 Days #1 PRN Reason: Shortness Of Breath/Wheezing Rosuvastatin Calcium 10 mg PO DAILY Hydrocodone/Acetaminophen [Hydrocodone-Acetamin 5-325 mg] 1 each PO Q4HPRN PRN #6 tablet MDD 4 tabs PRN Reason: Pain Budesonide/Formoterol Fumarate [Budesonide-Formoterol 160-4.5] 2 puffs IH BID Discontinued Smz/Tmp Ds Tablet [Bactrim Ds Tablet] 1 tab PO Q12H 7 Days #14 tablet Follow up with: ERI LOZA MD [Primary Care Provider] -
[2023-07-18] MEDS: Pepcid 20 MG PO SCH (09:24)
[2023-07-18] MEDS: Toprol-Xl 25MG Tablets PO SCH (09:24)
[2023-07-18] MEDS: Protonix 40MG Tablet PO SCH (09:24)
[2023-07-18] MEDS: ZOCOR 20MG PO SCH (09:25)
[2023-07-18] MEDS: Acidophilus TABLET PO SCH (09:25)
[2023-07-18] MEDS: ceLEXa 20 MG PO SCH (09:25)
[2023-07-18] MEDS: Levofloxacin 500MG/100ML D5W 500 MG/100 ML BAG IV SCH (09:26)
[2023-07-18] MEDS: ENOXAPARIN SODIUM SQ SCH (09:26)
== END 2023-07-18 10:30 | disposition home or self-care (01) ==
LOC: ED 12:01 → MED SURG 15:17
PROVIDERS: ADMIT Internal Medicine; ATTEND Internal Medicine
DX: N12 Tubulo-interstitial nephritis, not specified as acute or chronic (principal); N17.9 Acute kidney failure, unspecified; I10 Essential (primary) hypertension; E78.5 Hyperlipidemia, unspecified; E87.1 Hypo-osmolality and hyponatremia; R33.9 Retention of urine, unspecified; J44.9 Chronic obstructive pulmonary disease, unspecified; F17.200 Nicotine dependence, unspecified, uncomplicated; R19.7 Diarrhea, unspecified; Z79.899 Other long term (current) drug therapy; Z20.828 Contact with and (suspected) exposure to other viral communicable diseases
CPT/HCPCS: 36000; 36415; 74176; 80048; 80053; 81001; 83605; 83935; 84300; 84484; 85025; 85027; 87040; 87086; 87493; 94640; 94760; 96360; 96365; 99285; Q3014; J0696; J1650; J1956; Q0162; A9270-GY

== ENCOUNTER 2023-07-20 10:14 | Emergency (ER) | payer MEDICAID ==
[2023-07-20 10:31] VITALS: O2SAT 98
[2023-07-20 11:00] VITALS: BP 120/88; PULSE 97; RESP 20; TEMP 98.4
--- NOTE | 2023-07-20 11:06 | ERPHSYRPT ---
- History of Present Illness Time Seen by Provider: 07/20/23 10:40 Source: patient Exam Limitations: no limitations Patient Subjective Stated Complaint: PT HERE BECAUSE HE IS WORRIED ABOUT HES FC CATH DRAIANGE, HE STATES HE WAS PLACED ON FLOMAX YESTERDAY AND NOW HAS HAD 1300 OF URINE OUT OF CATH. PT HAD A RECENT UTI AND IS ON ANTIBOTICS Triage Nursing Assessment: PT ALERT, ANXIOUS , WALKED IN, SKIN W/D/P. FC IN PLACE, DRAININGE, CLEAR YELLOW URINE, RESP EASY, NO EDEMA NOTED Physician History: 48-year-old male with a Lo catheter recently diagnosed urinary tract infection currently on antibiotics presents to our ED for concerns regarding his urine output. Urine is clear and nonbloody. Patient observed that there was more urine flow in his Lo this morning. No other complaints. No active pain. However there is some discomfort at the tip of his penis at the location of insertion of the Lo catheter. Patient reports he was started on Flomax yesterday by his primary care doctor. Patient otherwise has no complaints. Physical exam function unremarkable. Patient voices no other complaints or concerns at this time. Portions of this note were created with voice recognition technology. There may be grammatical, spelling, punctuation or sound alike errors Timing/Duration: today Severity: mild Modifying Factors: Improves With: nothing Associated Symptoms: denies symptoms Allergies/Adverse Reactions: Penicillins Allergy (Mild, Verified 07/20/23 10:21) tamsulosin [From Flomax] Adverse Reaction (Intermediate, Verified 07/20/23 10:21) [facility] Medications: Lisinopril 20 mg [Zestril 20 MG] 40 tab PO DAILY 02/14/22 [History] Amlodipine Besylate 5 mg [Norvasc 5 mg] 10 mg PO 1700 01/17/23 [History] Famotidine 20 mg PO BID 01/17/23 [History] Metoprolol Succinate 25 mg Xl* [Toprol-Xl 25MG Tablets] 25 mg PO DAILY 04/16/23 [History] Rosuvastatin Calcium 10 mg PO DAILY 07/09/23 [History] Budesonide/Formoterol Fumarate [Budesonide-Formoterol 160-4.5] 2 puffs IH BID 11/23/23 [History] Hx Tetanus, Diphtheria Vaccination/Date Given: Yes Hx Influenza Vaccination/Date Given: No Hx Pneumococcal Vaccination/Date Given: No Immunizations Up to Date: Yes Travel Risk - International Travel Have you traveled outside of the country in past 3 weeks: No - Coronavirus Screening Are you exhibiting any of the following symptoms?: No Close contact with a COVID-19 positive Pt in past 14-21 Days: No - Vaccine Status Have you recieved a Covid-19 vaccination: No - Vaccination Dates Comment: Patient reports did not receive any covid vaccines - Review of Systems Constitutional: No Symptoms, No Fever, No Chills Eyes: No Symptoms Ears, Nose, & Throat: No Symptoms Respiratory: No Symptoms, No Cough, No Dyspnea Cardiac: No Symptoms, No Chest Pain, No Edema, No Syncope Abdominal/Gastrointestinal: No Symptoms, No Abdominal Pain, No Nausea, No Vomiting, No Diarrhea Genitourinary Symptoms: No Symptoms, No Dysuria Musculoskeletal: No Symptoms, No Back Pain, No Neck Pain Skin: No Symptoms, No Rash Neurological: No Symptoms, No Dizziness, No Focal Weakness, No Sensory Changes Psychological: No Symptoms Endocrine: No Symptoms Hematologic/Lymphatic: No Symptoms Immunological/Allergic: No Symptoms All Other Systems: Reviewed and Negative - Past Medical History Pertinent Past Medical History: Yes Neurological History: No Pertinent History ENT History: No Pertinent History Cardiac History: High Cholesterol, Hypertension Respiratory History: COPD, Other Endocrine Medical History: No Pertinent History Musculoskeletal History: No Pertinent History GI Medical History: Diverticulitis History: Other Psycho-Social History: Anxiety Male Reproductive Disorders: Prostate Problems Other Medical History: FC PLACED 07/15/2023 - Past Surgical History Past Surgical History: No Neuro Surgical History: No Pertinent History Cardiac: No Pertinent History Respiratory: No Pertinent History Gastrointestinal: No Pertinent History Genitourinary: No Pertinent History Musculoskeletal: No Pertinent History Male Surgical History: No Pertinent History Other Surgical History: tooth extraction - Social History Smoking Status: Current every day smoker How long have you smoked: 30+ Exposure to second hand smoke: No Drug Use: none Patient Lives Alone: No - Nursing Vital Signs Nursing Vital Signs: Initial Vital Signs Temperature 98.3 F 07/20/23 10:29 Pulse Rate 100 H 07/20/23 10:29 Respiratory Rate 18 07/20/23 10:29 Blood Pressure 127/88 07/20/23 10:29 O2 Sat by Pulse Oximetry 98 07/20/23 10:29 Pain Scale Pain Intensity 0 - Physical Exam General Appearance: no apparent distress, alert Eye Exam: PERRL/EOMI, eyes nml inspection Ears, Nose, Throat Exam: normal ENT inspection, TMs normal, pharynx normal, moist mucous membranes Neck Exam: normal inspection, non-tender, supple, full range of motion Respiratory Exam: normal breath sounds, lungs clear, airway intact, No respiratory distress Cardiovascular Exam: regular rate/rhythm, normal heart sounds, normal peripheral pulses Gastrointestinal/Abdomen Exam: soft, normal bowel sounds, No tenderness, No mass Back Exam: normal inspection, normal range of motion, No CVA tenderness, No vertebral tenderness Extremity Exam: normal inspection, normal range of motion, pelvis stable Neurologic Exam: alert, oriented x 3, cooperative, normal mood/affect, nml cerebellar function, nml station & gait, sensation nml, No motor deficits Skin Exam: normal color, warm, dry, No rash Lymphatic Exam: No adenopathy SpO2 Interpretation: normal SpO2: 98 O2 Delivery: Room Air - Course Nursing assessment & vital signs reviewed: Yes - Progress Progress: improved Progress Note: Patient 48-year-old male with a Lo catheter currently antibiotics recently started on Flomax presents to our ED with concerns for possible increased urine output into the Lo catheter. Urine appears clear. Patient otherwise asymptomatic. Patiently recently discharged from our hospital for UTI. Patient has no other complaints. Physical exam nonremarkable. Will discharge home. Patient agrees to follow-up with her primary care doctor within 48 hours for reevaluation. Portions of this note were created with voice recognition technology. There may be grammatical, spelling, punctuation or sound alike errors Complexity problem addressed is moderate acute complicated Critical care time Complex of data reviewed and analyzed is none. Diagnosis made based on history and physical examination. No specialized testing ordered. Risk complication and or risk of morbidity/mortality of patient management is low. Vital stable. Time spent to discharge patient is approximately 10 minutes. Plan of care established for shared decision making. No social determinants of health present impede follow-up. Portions of this note were created with voice recognition technology. There may be grammatical, spelling, punctuation or sound alike errors 07/20/23 11:08 Counseled pt/family regarding: diagnosis, need for follow-up - Departure Departure Disposition: Home Clinical Impression: Encounter for medical screening examination, Increased urine output Condition: Stable Critical Care Time: No Referrals: ERI LOZA MD [Primary Care Provider] - Follow up/PCP as directed Additional Instructions: Continue your antibiotics and Flomax as per your primary care doctor. Please follow-up with your primary care doctor within 48 hours for reevaluation. Discharge/Care Plan HALLEY FRANKLIN was seen on 07/20/23 in the Emergency Room. The patient was counseled regarding Diagnosis,Lab results, Imaging studies, need for follow up and when to return to the Emergency Room. Prescriptions given: Discharge Note I have spoken with the patient and/or caregivers. I have explained the patient's condition, diagnosis and treatment plan based on the information available to me at this time. I have answered the patient's and/or caregiver's questions and addressed any concerns. The patient and/or caregivers have as good understanding of the patient's diagnosis, condition and treatment plan as can be expected at this point. The vital signs have been stable. The patient's condition is stable and appropriate for discharge from the emergency department. The patient will pursue further outpatient evaluation with the primary care physician or other designated or consulting physician as outlined in the discharge instructions. The patient and/or caregivers are agreeable to this plan of care and follow-up instructions have been explained in detail. The patient and/or caregivers have received these instruction. The patient/and or caregivers are aware that any significant change in condition or worsening of symptoms should prompt an immediate return to this or the closest emergency department or call 911.
== END 2023-07-20 11:18 | disposition home or self-care (01) ==
LOC: ED 10:14
DX: Z71.1 Person with feared health complaint in whom no diagnosis is made (principal); R39.89 Other symptoms and signs involving the genitourinary system; E78.5 Hyperlipidemia, unspecified; I10 Essential (primary) hypertension; Z79.899 Other long term (current) drug therapy; Z28.310 Unvaccinated for COVID-19; Z72.0 Tobacco use
CPT/HCPCS: 99281